=== PATIENT | female | born 1955 | race Caucasian/White ===

== ENCOUNTER → 2020-03-21 17:14 | Outpatient (CLI) | payer MEDICARE, OTHER, SELFPAY ==
--- NOTE | ~2020-03-21 | MM_ITS ---
EXAMINATION: MM screening chelle BI w srini HISTORY: Screening mammogram TECHNIQUE: Craniocaudal and mediolateral oblique 3-D tomosynthesis images were obtained and synthetic 2-D images were generated. CAD analysis was submitted and interpreted. COMPARISON: 12/24/2016 diagnostic left digital mammogram and limited left breast ultrasound 12/02/2016 bilateral digital screening mammogram 08/28/2014 bilateral diagnostic digital mammogram BREAST PARENCHYMAL COMPOSITION: There are scattered areas of fibroglandular density. FINDINGS: Numerous bilateral scattered benign calcifications. There is no evidence of suspicious mass , calcification, or architectural distortion to suggest malignancy in either breast. There has been n o suspicious interval change. IMPRESSION: 1. No mammographic evidence of malignancy. 2. Recommend routine screening mammography in one year. BI-RADS Category 2: Benign finding(s). Reviewed, dictated and finalized at location A.
== END ==
PROVIDERS: Visit Provider Obstetrics & Gynecology
DX: Z12.31 Encounter for screening mammogram for malignant neoplasm of breast (principal)
CPT/HCPCS: 77063; 77067

== ENCOUNTER → 2021-08-31 10:39 | Outpatient (CLI) | payer MEDICARE, OTHER, SELFPAY ==
--- NOTE | ~2021-08-31 | XR_ITS ---
XR chest 2V 08/31/2021 10:53 Indication: Asthma. Dyspnea. Procedure: 2 view chest Comparison: Comparison to multiple prior studies sequentially, with oldest reviewed study dated 11/2008. Findings: There is a new 1.5 cm nodule in the right upper lung, not seen on prior examinations. Heart size normal. No focal air space disease, pulmonary edema, pleural effusion or suspected pneumothorax . The lungs are hyperinflated which is consistent with, but not diagnostic of chronic obstructive pul monary disease. Impression: 1: New right upper lobe nodule measuring 1.5 cm, suspicious for malignancy. Follow-up CT chest recomm ended. Reviewed, dictated and finalized at location A. Impression: 1: New right upper lobe nodule measuring 1.5 cm, suspicious for malignancy. Fol low-up CT chest recommended.
== END ==
PROVIDERS: PCP Internal Medicine; Visit Provider Clinical Nurse Specialist
DX: J45.909 Unspecified asthma, uncomplicated (principal); R05.9 Cough, unspecified; R91.1 Solitary pulmonary nodule
CPT/HCPCS: 71046

== ENCOUNTER → 2021-09-04 11:11 | Outpatient (CLI) | payer MEDICARE, OTHER, SELFPAY ==
--- NOTE | ~2021-09-04 | CT_ITS ---
EXAMINATION: CT chest high resolution w con DATE: 09/04/2021 11:40 INDICATION: Solitary pulmonary nodule TECHNIQUE: Computed tomography (CT) of the chest was performed with 75 cc of Omnipaque 350 intravenou s contrast. The dose-length product (DLP) was 159.85 mGy-cm. Automated exposure control and iterative reconstruction technique were employed. COMPARISON: Chest radiograph dated 08/11/2021 FINDINGS: There is a 1.7 x 1.2 cm nodule of the right upper lobe. There is a 1.1 x 0.8 cm nodule of t he left lower lobe. A few clusters of nodules are present in the left lower lobe. There is no pleural effusion or pneumothorax. No pathologically enlarged thoracic lymph nodes are identified. The heart size is normal. There is mild thoracic spondylosis. IMPRESSION: 1. Right upper lobe nodule concerning for primary bronchogenic carcinoma. CT-guided biopsy is recomme nded. 2. Nodules and clusters of nodules of the left lower lobe have an appearance suggestive of infection/ inflammation. Follow-up CT in three months is recommended. Reviewed, dictated and finalized at location B. IMPRESSION: 1. Right upper lobe nodule concerning for primary bronchogenic carcinoma. CT-gu ided biopsy is recommended. 2. Nodules and clusters of nodules of the left lower lobe have an appearance corrales ggestive of infection/inflammation. Follow-up CT in three months is recommended .
[2021-09-04 11:29] LABS: Estimated Glomerular Filt Rate > 60
== END ==
PROVIDERS: Visit Provider Clinical Nurse Specialist
DX: R91.1 Solitary pulmonary nodule (principal); R91.8 Other nonspecific abnormal finding of lung field
CPT/HCPCS: 71260; Q9967

== ENCOUNTER 2021-09-10 02:06 | Outpatient (CLI) | payer MEDICARE, OTHER, SELFPAY ==
--- NOTE | 2021-09-07 15:42 | PC.NURSE ---
Pre Radiology instructions Report to the Outpatient Waiting Room, entrance under the green pavilion located off [facility], at time __09 on date __09/10/21 . Procedure Time: _1130 . One visitor will be allowed to accompany the patient into the hospital. The visitor will be instructed to remain with patient at all times or leave the building. We will allow the visitor to come back to the postoperative area when patient is ready. You and your visitor will be asked a series of questions to screen for COVID 19 for your protection. A mask is required within the hospital. Pre-procedure COVID Testing Requirements: No COVID Test needed if: (proof is required; if not received patient will have Rapid Test prior to entry)- Patient has received COVID Vaccine at least 14 days prior to procedure date or- Patient has positive COVID test result within last 90 days of procedure date. COVID Test needed if above criteria is not met If not COVID vaccinated a COVID test must be conducted within 72 hours of surgery and patient is asked to isolate self from time of testing until procedure. You will go to the [facility] for your COVID testing. The [facility] is located at the corner of [address] [facility]. You will only be called if COVID results are positive and your surgeon may reschedule your elective procedure date Patients are to have no food or drink 6 hours prior to procedure time Driving will be restricted after the procedure, you must have a person to drive you home. Labs will be drawn in preop area and once reviewed, you will be taken to radiology area for procedure. When the procedure is completed, you will be taken to outpatient where you will be monitored for several hours. You may have one visitor in this area. Other than holding anti-coagulants, patient may take other medication(s) as scheduled. Prior to your appointment date patients are instructed to hold anti-coagulants after discussing with ordering provider to stop. If unable to discontinue anti-coagulants please notify radiologist. No aspirin or warfarin (Coumadin) for 7 days prior to the procedure. No clopidogrel (Plavix), ticagrelor (Brilinta), prasugrel (Effient) or dabigatran (Pradaxa) for 5 days prior to the procedure. No rivaroxaban (Xarelto), apixaban (Eliquis), dipyridamole (Aggrenox or Persantine) or cilostazol (Pletal) for 2 days prior to the procedure. Medications to discontinue per physician: ____NONE Date to take last dose: Please leave all valuables, including medications, at home the day of procedure. The hospital will not accept responsibility for valuables. Wear comfortable, loose fitting clothing. Follow any additional instructions given to you from ordering provider. Telephone instructions given to __PATIENT and asked if any additional questions and then verbalized understanding. Patient advised to call scheduling provider office or registration scheduling [phone] if any additional questions.
[2021-09-07 15:45] VITALS: BMI 25.0
[2021-09-10] VITALS (13 sets, daily range): BP systolic 91–118; BP diastolic 44–77; PULSE 63–83; RESP 16–18; TEMP 36.6; O2SAT 94–100
--- NOTE | ~2021-09-10 | XR_ITS ---
EXAMINATION: XR chest 1V portable DATE: 09/10/2021 14:56 INDICATION: Status post percutaneous biopsy of a right upper lobe nodule TECHNIQUE: frontal view of the chest was obtained. COMPARISON: Chest radiograph dated 09/10/2021 at 12:40 PM FINDINGS: Mild right apical pleural-parenchymal scarring with near complete resolution of the tiny right apical pneumothorax. The biopsied nodule can be seen at the lateral right mid to upper lung zone. No new ai rspace opacities, pulmonary edema, pleural effusion or left pneumothorax. The cardiomediastinal silho uette is normal. IMPRESSION: 1. Near-complete resolution of the tiny right apical pneumothorax. 2. Right upper lobe nodule suspicious for malignancy. Reviewed, dictated and finalized at location A.
--- NOTE | ~2021-09-10 | XR_ITS ---
EXAMINATION: XR chest 1V DATE: 09/10/2021 11:41 INDICATION: Status post right lung biopsy TECHNIQUE: frontal view of the chest was obtained. COMPARISON: Chest radiograph dated 08/31/2021 FINDINGS: Tiny right apical pneumothorax with 5 mm maximal separation of the pleural margins. Mild right apical pleural-parenchymal scarring. Again seen is a right upper lobe nodule which is concerning for primar y bronchogenic carcinoma. No other airspace opacities, pulmonary edema, pleural effusion or left-side d pneumothorax. The cardiomediastinal silhouette is normal. IMPRESSION: 1. Tiny right apical pneumothorax post percutaneous biopsy of a right upper lobe nodule which is conc erning for primary bronchogenic carcinoma. Reviewed, dictated and finalized at location A. IMPRESSION: 1. Tiny right apical pneumothorax post percutaneous biopsy of a right upper lob e nodule which is concerning for primary bronchogenic carcinoma.
--- NOTE | ~2021-09-10 | CT_ITS ---
EXAMINATION: CT biopsy lung w/imaging DATE: 09/10/2021 11:40 INDICATION: Right upper lobe pulmonary nodule TECHNIQUE: The procedure including the risks and benefits was discussed with the patient. Risks discu ssed included infection, approximately 1/20 risk of symptomatic hemorrhage beyond mild hemoptysis, ap proximately 1/3 risk of pneumothorax, and approximately 1/10 risk of pneumothorax severe enough to wa rrant chest tube placement. The patient understood the risks and agreed to proceed. The patient was p laced in the left lateral decubitus position. The skin overlying the cephalad lateral right chest wa s prepped and draped in sterile fashion. Anesthetic was administered with 1% lidocaine subcutaneousl y. A 19 gauge outer needle was advanced under CT guidance to the lesion of interest. A 20 gauge core biopsy needle was then used to obtain 4 core biopsy specimens. The needle was removed and the entry site was cleaned and dressed. There were no immediate complications. The dose-length product was 165 .02 mGy-cm. FINDINGS: CT images demonstrate the outer needle tip adjacent to a 1.7 x 1.2 cm right upper lobe nodu le. IMPRESSION: 1. Successful CT-guided biopsy of a 1.7 cm right upper lobe nodule. Reviewed, dictated and finalized at location A.
--- NOTE | ~2021-09-10 | XR_ITS ---
EXAMINATION: XR chest 1V portable DATE: 09/10/2021 12:47 INDICATION: Status post right upper lobe biopsy TECHNIQUE: frontal view of the chest was obtained. COMPARISON: Chest radiograph dated 11:39 AM FINDINGS: Interval decrease in size of a tiny right apical pneumothorax. The biopsied right upper lobe nodules is seen at the lateral right mid to upper lung zone. No other opacities, pulmonary edema, pleural eff usion or left pneumothorax. The cardiomediastinal silhouette is normal. IMPRESSION: 1. Interval decrease in size of a tiny right apical pneumothorax. 2. Right upper lobe nodule concerning for malignancy. Reviewed, dictated and finalized at location A.
[2021-09-10 10:07] LABS: Mean Platelet Volume 9.6 fl (7.4-10.4); Platelet Count Result 354 k/mm3 (150-375)
[2021-09-10 10:18] LABS: INR 0.9; Prothrombin Time 12.1 Seconds (11.1-14.7)
--- NOTE | 2021-09-10 13:07 | SUR.PHASEII ---
at 1245 pt was c/o dinh and left chest pressure when taking a deep breath. pt BP is also down trending. This nurse called md Fowler to inform him about pt situation and he said pt can go by on her back and sit up a little, and drink some water and continue to monitor. pt was lying on her left side since she arrived to OP. md bardales said she can also have some tylenol if she wants.
[2021-09-10] MEDS: ACETAMINOPHEN 500 MG TABLET PO (13:32)
--- NOTE | 2021-09-10 13:40 | SUR.PHASEII ---
pt visitor came to bedside
--- NOTE | 2021-09-10 15:35 | SUR.PHASEII ---
at 1515 md palacios said pt was good to go home early since her last CXR looked good.
== END 2021-09-10 15:24 | disposition home or self-care (01) ==
PROVIDERS: PCP Internal Medicine; Visit Provider Radiology Diagnostic Radiology
PROC: BB24ZZZ Computerized Tomography (CT Scan) of Bilateral Lungs (ICD-10-PCS; CPT 32408; principal; 2021-09-10 11:30)
DX: R91.1 Solitary pulmonary nodule (principal); J84.10 Pulmonary fibrosis, unspecified
CPT/HCPCS: 32408; 36415; 71045; 85049; 85610; 88305; 88312; A9270

== ENCOUNTER → 2021-09-29 00:48 | Outpatient (CLI) | payer MEDICARE, OTHER, SELFPAY ==
[2021-09-29 12:36] LABS: Influenza A QL RT-PCR Negative (Negative); Influenza B QL RT-PCR Negative (Negative); SARS-CoV-2 RNA PCR Negative
== END ==
PROVIDERS: PCP Internal Medicine; Visit Provider Physician Assistant
DX: R05.9 Cough, unspecified (principal); Z20.822 Contact with and (suspected) exposure to COVID-19
CPT/HCPCS: 87502; C9803; U0003; U0005

== ENCOUNTER 2021-12-07 07:57 | Outpatient (CLI) | payer MEDICARE, OTHER, SELFPAY ==
--- NOTE | ~2021-12-07 | CT_ITS ---
EXAMINATION: CT diagnostic chest wo con DATE: 12/07/2021 08:12 INDICATION: Follow-up from CT biopsy. Solitary pulmonary nodule. Asthma. Congestion. TECHNIQUE: Computed tomography (CT) of the chest was performed without intravenous contrast. Automate d exposure control and iterative reconstruction technique were employed. Exam dose: 67.63 mGy-cm tot al exam DLP. COMPARISON: 09/10/2021 portable AP chest 3 hours post lung biopsy 09/10/2021 CT lung biopsy 09/04/2021 CDT chest high resolution scan FINDINGS: Right upper lobe nodule currently measures approximately 8.5 x 15.3 mm compared to 9.1 x 15 .4 mm on 09/04/2021. Bilateral mild apical scarring. There is chronic discoid scarring in the anteromedial right upper lobe and medial and anterolateral l eft upper lobe and particularly anteromedial lingula. There is considerable improvement and near resolution of patchy left lower lobe infiltrates since 08/12. Normal heart size. No hilar or mediastinal mass lesion or lymphadenopathy. No thoracic aortic aneurys m. No pericardial or pleural effusion. Normal morphology of the adrenal glands. Small sliding hiatal hernia. IMPRESSION: Persistent relatively stable right upper lobe lung mass; please refer to the lung biopsy result Improvement of left lower lobe infiltrates since 09/04/2021, consistent with suspected infection or in flammation Reviewed, dictated and finalized at Location A. Reviewed, dictated and finalized at location B. IMPRESSION: Persistent relatively stable right upper lobe lung mass; please re merline to the lung biopsy result Improvement of left lower lobe infiltrates since 09/04/2021, consistent with nicole pected infection or inflammation
== END 2021-12-07 07:58 | disposition home or self-care (01) ==
PROVIDERS: PCP Internal Medicine; Visit Provider Physician Assistant
DX: R91.1 Solitary pulmonary nodule (principal); R91.8 Other nonspecific abnormal finding of lung field
CPT/HCPCS: 71250

== ENCOUNTER 2022-02-10 00:16 | Day surgery (SDC) | payer MEDICARE, OTHER, SELFPAY ==
[2022-01-28 12:36] VITALS: BMI 25.4
--- NOTE | 2022-02-09 13:40 | WPDANESEPPF ---
Anes - Initial Pre Proc Eval Procedure: Operation Date: 02/10/22 08:45 Proposed Procedures p Screening Colonoscopy - Dago Bass MD Date/Time: 02/09/22 13:40 Surgeon: Dago Bass MD Pre Op Diagnosis: neoplasm screening Patient Data Age: 66 Gender: F Height: 1.52 m Weight: 59.1 kg Allergies Allergy/AdvReac Type Severity Reaction Status Date / Time meperidine Allergy Mild Nausea Verified 02/10/22 07:35 Home Medications Medication Instructions Recorded Confirmed Type cetirizine 10 mg tablet (Zyrtec) 10 mg PO DAILY #90 tabs 05/04/19 01/28/22 Rx cholecalciferol (vitamin D3) 25 1,000 unit PO DAILY 05/04/19 01/28/22 History mcg (1,000 unit) capsule inhalational spacing device #1 ea 11/13/19 01/28/22 Rx (Aerochamber MV spacer) tiotropium bromide 2.5 2 puff inhalation DAILY #4 grams 07/01/21 01/28/22 Rx mcg/actuation mist for inhalation (Spiriva Respimat) albuterol sulfate 90 mcg/actuation 1 inh inhalation Q4-6H PRN 07/22/21 01/28/22 Rx aerosol inhaler (ProAir HFA) shortness of breath or wheezing #8.5 grams fluticasone 232 mcg-salmeterol 14 1 inh inhalation BID #1 ea 07/22/21 01/28/22 Rx mcg/actuation breath activated powdr ipratropium 0.5 mg-albuterol 3 mg 3 ml inhalation BID PRN shortness 10/05/21 01/28/22 Rx (2.5 mg base)/3 mL nebulization of breath or wheezing #180 mL soln ascorbate calcium (vitamin C) 500 500 mg PO DAILY 12/11/21 01/28/22 History mg tablet zinc 50 mg tablet 50 mg PO DAILY 12/11/21 01/28/22 History albuterol sulfate 2.5 mg/3 mL 2.5 mg inhalation Q6H PRN Dyspnea 01/28/22 01/28/22 History (0.083 %) solution for nebulization Patient hx anesthesia problems: none Family hx anesthesia problems: none Results Review: All pre-operative results and documents have been reviewed as part of the pre-operative evaluation. [facility] Past Medical History Medical History (Updated 02/09/22 @ 13:40 by Jeramie Holguin MD) Asthma JUSTYNA (obstructive sleep apnea) Pulmonary nodule Surgical History Surgical History H/O: hysterectomy History of section Family History Family History Sibling Patient's sister is in good health Family history of lung cancer Father Cerebrovascular accident, Onset Age: 79 Family history of chronic obstructive pulmonary disease, Onset Age: 79 Mother Family history of pancreatic cancer, Onset Age: 74 Social History Social History Smoking packs per day: 1 Smoking cigarettes per day: 20.0 Years smoked: 20 Smoking pack-years: 20.00 Smoking status: Never smoker Smoking end date: 06/13/99 Alcohol intake: current Drinks per week: 5 Alcohol use details: occasional Substance use: never Substance use type: does not use Living arrangements: with family Spiritual care concerns: No Anes - Eval Final PreProcedure Day of Procedure 02/09/22 13:40 Patient weight: normal Heart: regular rate and rhythm Lungs: clear to auscultation and normal air movement Airway: Mallampati scale class II Neurological: alert and oriented Last oral intake: >/= 8 hours ASA classification: II Emergent: no Anesthetic plan: proceed Anesthesia type and monitoring: general GIVS Results Review: All pre-operative results and documents have been reviewed as part of the pre-operative evaluation. Informed Consent: The patient's anesthetic plan and its attendant risks and benefits were discussed with the patient/family/POA. Questions were solicited and answers provided to the satisfaction of the patient/family/POA.
[2022-02-10 07:36] VITALS: BP 104/61; PULSE 72; RESP 18; TEMP 36.6; BMI 24.5
[2022-02-10] MEDS: LACTATED RINGERS 1,000 ML 150 ML IV CONT (07:40)
--- NOTE | 2022-02-10 08:24 | PM.HPGS ---
History of Present Illness History of Present Illness Consent: Risks, benefits, and alternatives have been discussed and questions answered. Patient agrees to proceed with procedure. Chief complaint: neoplasm screening Narrative: Awa Stringer is a 66 year old female here for screening colonoscopy, last one 10 years ago Review of Systems Constitutional: Constitutional: Denies headache(s) and Denies weakness Eyes: Eyes: Denies blurry vision ENT: Reports Normal hearing present, Denies headache(s) and Denies neck pain Cardiovascular: Cardiovascular: Denies chest pain and Denies dyspnea Respiratory: Respiratory: Denies dyspnea Gastrointestinal: Gastrointestinal: Reports no additional gastrointestinal complaints Genitourinary: Genitourinary: Denies dysuria Musculoskeletal: Musculoskeletal: Denies neck pain Integumentary/Breasts: Skin/Breast: Denies dry skin Neurologic: Reports Normal hearing present, Denies headache(s) and Denies weakness Psychiatric: Psychiatric: Denies anxiety Endocrine: Endocrine: Denies change in body appearance Hematologic/Lymphatic: Hematologic/Lymphatic: Denies easy bleeding Allergic/Immunologic: Allergic/Immunologic: Denies urticaria PMFSH Past Medical History Medical History (Updated 02/09/22 @ 13:40 by Jeramie Holguin MD) Asthma JUSTYNA (obstructive sleep apnea) Pulmonary nodule Surgical History Surgical History H/O: hysterectomy History of section Family History Family History Sibling Patient's sister is in good health Family history of lung cancer Father Cerebrovascular accident, Onset Age: 79 Family history of chronic obstructive pulmonary disease, Onset Age: 79 Mother Family history of pancreatic cancer, Onset Age: 74 Social History Social History Smoking packs per day: 1 Smoking cigarettes per day: 20.0 Years smoked: 20 Smoking pack-years: 20.00 Smoking status: Never smoker Smoking end date: 06/13/99 Alcohol intake: current Drinks per week: 5 Alcohol use details: occasional Substance use: never Substance use type: does not use Living arrangements: with family Spiritual care concerns: No Meds Home Medications and Allergies Home Medications Medication Instructions Recorded Confirmed Type cetirizine 10 mg tablet (Zyrtec) 10 mg PO DAILY #90 tabs 11/22/19 08/18/22 Rx cholecalciferol (vitamin D3) 25 1,000 unit PO DAILY 05/04/19 01/28/22 History mcg (1,000 unit) capsule inhalational spacing device #1 ea 11/13/19 01/28/22 Rx (Aerochamber MV spacer) tiotropium bromide 2.5 2 puff inhalation DAILY #4 grams 07/01/21 01/28/22 Rx mcg/actuation mist for inhalation (Spiriva Respimat) albuterol sulfate 90 mcg/actuation 1 inh inhalation Q4-6H PRN 07/22/21 01/28/22 Rx aerosol inhaler (ProAir HFA) shortness of breath or wheezing #8.5 grams fluticasone 232 mcg-salmeterol 14 1 inh inhalation BID #1 ea 07/22/21 01/28/22 Rx mcg/actuation breath activated powdr ipratropium 0.5 mg-albuterol 3 mg 3 ml inhalation BID PRN shortness 10/05/21 01/28/22 Rx (2.5 mg base)/3 mL nebulization of breath or wheezing #180 mL soln ascorbate calcium (vitamin C) 500 500 mg PO DAILY 12/11/21 01/28/22 History mg tablet zinc 50 mg tablet 50 mg PO DAILY 12/11/21 01/28/22 History albuterol sulfate 2.5 mg/3 mL 2.5 mg inhalation Q6H PRN Dyspnea 01/28/22 01/28/22 History (0.083 %) solution for nebulization Allergies Allergy/AdvReac Type Severity Reaction Status Date / Time meperidine Allergy Mild Nausea Verified 02/10/22 07:35 Vital Signs Vital Signs - 24 hr 02/10/22 07:36 Temperature 97.8 F Pulse Rate 72 Respiratory Rate 18 Blood Pressure 104/61 Exam Const: General: comfortable and no acute distress HE
[2022-02-10 08:50] VITALS: BP 97/61; PULSE 77; RESP 16; O2SAT 98
[2022-02-10 09:00] VITALS: BP 105/61; PULSE 67; RESP 14; O2SAT 98
[2022-02-10 09:10] VITALS: BP 109/64; PULSE 67; RESP 14; O2SAT 100
== END 2022-02-10 09:22 | disposition home or self-care (01) ==
PROVIDERS: PCP Internal Medicine; Visit Provider Internal Medicine Gastroenterology
PROC: 0DJD8ZZ Inspection of Lower Intestinal Tract, Via Natural or Artificial Opening Endoscopic (ICD-10-PCS; CPT 45378; principal; 2022-02-10 08:45)
DX: Z12.11 Encounter for screening for malignant neoplasm of colon (principal); D12.4 Benign neoplasm of descending colon; K57.30 Diverticulosis of large intestine without perforation or abscess without bleeding; K64.8 Other hemorrhoids; J45.909 Unspecified asthma, uncomplicated; G47.33 Obstructive sleep apnea (adult) (pediatric); R91.1 Solitary pulmonary nodule; Z79.51 Long term (current) use of inhaled steroids
CPT/HCPCS: 45380; 88305; J2704; J7120

== ENCOUNTER → 2022-03-25 14:34 | Outpatient (CLI) | payer MEDICARE, OTHER, SELFPAY ==
--- NOTE | ~2022-03-25 | MM_ITS ---
EXAMINATION: MM screening chelle BI w srini HISTORY: Screening TECHNIQUE: Craniocaudal and mediolateral oblique 3-D tomosynthesis images were obtained and synthetic 2-D images were generated. CAD analysis was submitted and interpreted. COMPARISON: No prior mammogram is available for comparison at this institution. BREAST PARENCHYMAL COMPOSITION: Breast composed of scattered areas of fibroglandular density FINDINGS: There is no evidence of suspicious mass, calcification, or architectural distortion to sugg est malignancy in either breast. There has been no suspicious interval change. IMPRESSION: 1. No mammographic evidence of malignancy. 2. Recommend routine screening mammography in one year. BI-RADS Category 1: Negative Reviewed, dictated and finalized at location A.
== END ==
PROVIDERS: PCP Internal Medicine; Visit Provider Nurse Practitioner
DX: Z12.31 Encounter for screening mammogram for malignant neoplasm of breast (principal)
CPT/HCPCS: 77063; 77067

== ENCOUNTER → 2022-03-30 12:33 | Outpatient (CLI) | payer MEDICARE, OTHER, SELFPAY ==
--- NOTE | ~2022-03-30 | DEXA_ITS ---
Bone Density Report Name: NILA MACIAS Age: 66 Sex: Female Ethnicity: White Date of : 1955 Indication: postmenopausal; screening for osteoporosis; asthma or emphysema; hysterectomy; Referring Provider: Lashaun Rey Study: Bone densitometry was performed. Exam Date: March 30, 2022 Accession number: [id number] Bone Density: Region BMD T-score Z-score Classification AP Spine (L1-L4) 0.983 -0.6 1.3 Normal Femoral Neck (Left) 0.602 -2.2 -0.6 Osteopenia Total Hip (Left) 0.748 -1.6 -0.2 Osteopenia Femoral Neck (Right) 0.621 -2.1 -0.4 Osteopenia Total Hip (Right) 0.781 -1.3 0.0 Osteopenia Total Hip Mean 0.765 -1.5 -0.1 Osteopenia World Health Organization criteria for BMD impression classify patients as: Normal (T-score at or above -1.0), Osteopenia (T-score between -1.0 and -2.5), or Osteoporosis (T-score at or below -2.5). 10-year Fracture Risk(1): Major Osteoporotic Fracture 12% Hip Fracture 2.2% Reported Risk Factors: [place] (), Neck BMD=0.602, BMI=24.3 (1) FRAX(R) Version 3.08. Fracture probability calculated for an untreated patient. Fracture probability may be lower if the patient has received treatment. Clinical Information Provided by Patient: Has used the following medications: Vitamin D Has the following medical conditions: Asthma or Emphysema, Hysterectomy Patient maximum height was 60 Menopause Age: 44 No regular weight bearing exercise Does not regularly consume dairy products Drinks caffeinated beverages Onset of menses at age 12 Number of children 2 Impression: The patient has low bone mass, based on the Left Femoral Neck T-score. The patient has an estimated ten-year risk of hip fracture of 2.2% and an estimated ten-year risk of major fracture of 12%, based on the WHO FRAX algorithm. Discussion: BONE DENSITY IS LOW AT ONE OR MORE SKELETAL SITES. This patient's lowest T-score is low at one or more skeletal sites. It meets the World Health Organization's (WHO) criteria for ?low bone mass? (T-score between -1.0 and -2.5). The patient's 10-year risk of fracture as calculated by FRAX is less than the threshold where pharmacological therapy is recommended by the National Osteoporosis Foundation (NOF). However, all treatment decisions require clinical judgment and consideration of individual patient factors, including patient preferences, comorbidities, previous drug use, risk factors not captured in the FRAX model (e.g., frailty, falls, vitamin D deficiency, increased bone turnover, interval significant decline in bone density) and possible under or overestimation of fracture risk by FRAX. The patient should follow a healthful lifestyle (good nutrition with adequate calcium and vitamin D, and appropriate weight-bearing exercise). Follow-Up: Consider repeating th
== END ==
PROVIDERS: PCP Internal Medicine; Visit Provider Nurse Practitioner
DX: Z78.0 Asymptomatic menopausal state (principal); M85.89 Other specified disorders of bone density and structure, multiple sites
CPT/HCPCS: 77080

== ENCOUNTER 2023-06-20 09:18 | Inpatient (IN) | payer MEDICARE, OTHER, SELFPAY ==
[2023-06-20] VITALS (14 sets, daily range): BP systolic 95–149; BP diastolic 56–84; PULSE 80–112; RESP 12–20; TEMP 36.2–36.4; O2SAT 84–100; BMI 22.8
--- NOTE | ~2023-06-20 | XR_ITS ---
XR chest 1V portable DATE: 06/20/2023 10:44 INDICATION: Shortness of breath, productive cough. History of asthma. TECHNIQUE: Portable upright AP chest on 06/20/2023 at 1037 hours COMPARISON: 12/07/2021 CT chest 09/10/2021 portable AP chest FINDINGS: The lungs are hyperinflated suggesting obstructive airways disease. Asymmetric subtle density overlying the lateral right upper lung field corresponds to the position of the previously reported right upper lobe lung mass; recommend correlation with previous biopsy resul t and follow-up CT chest imaging if/as clinically appropriate. No pulmonary infiltrate or consolidation, pleural effusion or pulmonary vascular congestion or pneumo thorax is detected. Normal heart size. No hilar or mediastinal enlargement. IMPRESSION: Bilateral hyperinflation suggesting obstructive airways disease Probable right upper lung mass; recommend clinical correlation with previous biopsy Reviewed, dictated and finalized at location B. ER CENTER DIRECTOR IMPRESSION: Bilateral hyperinflation suggesting obstructive airways disease Probable right upper lung mass; recommend clinical correlation with previous bi opsy
--- NOTE | 2023-06-20 09:48 | ECG_ITS ---
Measurements Intervals [place] Rate: 96 P: 78 [place]: 120 QRS: 57 QRSD: 81 T: 64 QT: 335 QTc: 424 Interpretive Statements SINUS RHYTHM BASELINE ARTIFACT- I, II, III, AVR, AVL, AVF, V1-V2, V4-V6 NORMAL ECG NO PREVIOUS ECG AVAILABLE FOR COMPARISON Electronically Signed On 06-20-2023 10:30:52 [employer] by Gualberto Taylor D.O.
[2023-06-20] MEDS: ALBUTEROL SULFATE NEB 2.5 MG/3 ML INH 10 MG INHALATION ×2 (09:55→12:10)
[2023-06-20] MEDS: IPRATROPIUM BR 0.02% INH SOLN 0.5 MG/2.5 ML VIAL INHALATION ×2 (09:55→20:40)
--- NOTE | 2023-06-20 10:08 | ED.SOB ---
HPI - SOB/Dyspnea General Chief Complaint: Shortness of Breath/Dyspnea Stated Complaint: difficulty breathing, low o2 Time Seen by Provider: 06/20/23 09:50 History of Present Illness HPI Narrative: Patient is a 67-year-old female who presents ER with shortness of breath. Has history of asthma. Began having dyspnea about 4 days ago. No fevers or chills or sweats. No LOC. Unknown sick contacts. Mild cough. She is having chest tightness. She has been compliant with home medications. Related Data Home Medications Medication Instructions Recorded Confirmed cholecalciferol (vitamin D3) 25 1,000 unit PO DAILY 05/04/19 06/20/23 mcg (1,000 unit) capsule zinc 50 mg tablet 50 mg PO DAILY 12/11/21 06/20/23 Allergies Allergy/AdvReac Type Severity Reaction Status Date / Time meperidine Allergy Mild Nausea Verified 01/27/23 10:13 Review of Systems Review of Systems: All systems reviewed & are unremarkable except as noted in HPI and below Constitutional: Constitutional: Denies chills, Reports fatigue and Denies fever(s) ENT: Denies nasal congestion and Denies sore throat Cardiovascular: Cardiovascular: Reports no additional cardiovascular complaints Respiratory: Respiratory: Reports cough, Reports dyspnea and Reports wheezing Gastrointestinal: Gastrointestinal: Reports no additional gastrointestinal complaints Musculoskeletal: Musculoskeletal: Reports no additional musculoskeletal complaints [facility] Past Medical History Medical History Asthma Obstructive sleep apnea Pulmonary nodule Biopsied in August 2021-benign. Surgical History Surgical History History of appendectomy History of section History of hysterectomy History of lung biopsy History of tubal ligation Family History Family History Sibling Family history of lung cancer Patient's sister is in good health 2 sisters recently diagnosed with hyper hemochromatosis Father Cerebrovascular accident, Onset Age: 79 Family history of chronic obstructive pulmonary disease, Onset Age: 79 Mother Family history of pancreatic cancer, Onset Age: 74 Social History Social History (Updated 06/20/23 @ 15:50 by Vesna Connelly PA-C) Social History: Surrogate medical decision maker: Colton Bettorf, spouse. Code status: Full code. Smoking packs per day: 1 Smoking cigarettes per day: 20.0 Years smoked: 20 Smoking pack-years: 20.00 Smoking status: Former smoker Alcohol intake: current Drinks per week: 5 Substance use: never Substance use type: does not use Do You Feel Safe in your Home?: Yes Lack of Transportation: No Lack of Food: Never True Current Housing: I Have Housing Concerned About Future Housing: No Difficulty Paying Gas/Electric Bills: No Difficulty Paying for Meds: No Currently Unemployed: No Education: High School Diploma/GED Difficulty w/ Childcare or Family Care: No Living arrangements: with family Additional living arrangements comments: Lives with spouse in [place]. Spiritual care concerns: No Exam Narrative: GENERAL: Chronically ill-appearing, well-nourished, and in no acute distress. HEAD: Normocephalic, atraumatic. ENT: Mucous membranes moist. NECK: Supple. CHEST: diffuse inspiratory and expiratory wheezing with increased respiratory rate. HEART: Regular rate and rhythm. Normal peripheral pulses. EXTREMITIES: Normal range of motion. No edema. SKIN: Warm, dry, no rash. NEURO: Alert and oriented x3. PSYCH: Normal mood and affect. Course Course Emergency Course: Patient with persistent wheezing. When attempt dating to ambulate patient medially desaturates to 84% on room air. Admit to hospitalist service for IV steroids and regular breathing treatments.
[2023-06-20 10:25] LABS: Basophils Percent Auto 0.2 % (0.2-1.2); Eosinophils Percent Auto 0.1 % (0-4.4); Hematocrit 43.7 % (37.0-47.0); Hemoglobin 13.9 g/dL (12.0-15.0); Immature Granulocyte Absolute 0.08 K/mm3 (0.00-0.031); Immature Granulocyte Percent A 0.4 % (0-0.5); Lymphocytes Percent Auto 9.6 % (18.3-44.2); Mean Corpuscular HGB Conc 31.8 g/dl (32-36); Mean Corpuscular Hemoglobin 30.6 pg (26-34); Mean Corpuscular Volume 96.3 fl (80-100); Monocytes Absolute Auto 1.9 K/mm3 (0.1-0.6); Monocytes Percent Auto 10.3 % (2.6-8.5); Neutrophils Absolute Auto 14.9 K/mm3 (1.3-6.7); Neutrophils Percent Auto 79.4 % (45.5-73.1); Platelet Count Result 323 k/mm3 (150-375); Red Blood Count 4.54 M/mm3 (4.2-5.4); Red Cell Distribution Width 12.4 % (11.5-14.5); White Blood Count 18.8 K/mm3 (4.5-10.0)
[2023-06-20 10:35] LABS: Alanine Aminotransferase 21 U/L (6-35); Alkaline Phosphatase 78 U/L (38-126); Anion Gap 8 mmol/L (8-16); Aspartate Amino Transferase 20 U/L (14-36); Bilirubin,Total 0.5 mg/dL (0.2-1.3); Blood Urea Nitrogen 12 mg/dL (7-17); Calcium 8.9 mg/dL (8.4-10.2); Carbon Dioxide 25 mmol/L (22-30); Chloride 104 mmol/L (98-107); Estimated CRCL calculation 58 ml/min; Estimated Glomerular Filt Rate > 60; Glucose 92 mg/dL (65-110); Potassium 3.5 mmol/L (3.4-5.0); Sodium 137 mmol/L (137-145)
[2023-06-20 11:02] LABS: Influenza A QL RT-PCR Negative (Negative); Influenza B QL RT-PCR Negative (Negative); RSV RNA, RT-PCR Negative (Negative); SARS-CoV-2 RNA PCR Negative (Negative)
[2023-06-20] MEDS: IPRATROPIUM BR 0.02% INH SOLN 0.5 MG/2.5 ML VIAL 1 MG INHALATION (12:10)
[2023-06-20] MEDS: methylPREDNISolone SOD SUCC 125 MG VIAL IV PUSH (13:04)
--- NOTE | 2023-06-20 15:20 | ADMGEN ---
This patient, Awa Stringer, was admitted to Virtual Bed 3rd Floor-3. Patient/family oriented to hospital policies and general routines including ID bracelet, bed and alarms, visiting hours, pain management, procedures, bathroom and other care routines, personal items, smoking policy, room service/diet, and visiting hours. Information on how to activate the Rapid Response Team has been discussed. Patient/Family are encouraged to report perceived risks to care and to ask questions if they do not understand what they are told or what they should do.
--- NOTE | 2023-06-20 15:45 | PM.IMHP ---
H&P: HPI History of Present Illness Date/Time: 06/20/23 16:45 Chief Complaint: Shortness of breath. Narrative: This is a very pleasant 67-year-old female with asthma who presented to the emergency department via private vehicle from home for evaluation of shortness of breath. The patient provides the following history. She has not felt well for about 3 or 4 days with cough productive of thick greenish yellow phlegm and increasing dyspnea on lesser and lesser exertion. She also endorses tightness in her chest with reports that it feels as though she cannot take in a deep breath. She has been using her maintenance inhaler at home (she is on fluticasone, no longer on Spiriva as she cannot afford it) and nebulizers 4 times a day which have not helped much. She had some leftover prednisone at home and she took 40 mg each day for the last 3 days for her wheezing though that is not helped either. She denies fever, chills, sweats, sinus congestion, sore throat, pleuritic pain, nausea, and vomiting. She also denies sick contacts and recent travel. She was afebrile on arrival to the emergency department. SpO2 has been as low and 84% on room air and she is currently on 2 L. Her labs were pretty unremarkable aside from a WBC count of 18.8. She tested negative for influenza, RSV, and COVID. 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 She received 125 mg IV Solu-Medrol and a DuoNeb in the ED and she is being admitted in this setting for further treatment. Review of Systems Review of Systems: Twelve systems were reviewed. No syncope or near syncope. She denies exertional chest pain but has had some shortness of breath as detailed above. No orthopnea or paroxysmal nocturnal dyspnea. She has been noticing edema in her ankles recently which is new for her. She has a strong family history of cardiac disease including 2 of her sisters and she is worried about that. Except as documented, all other systems were reviewed and are negative pleural PMFSH Past Medical History Medical History (Updated 06/20/23 @ 21:33 by Vesna Connelly PA-C) Asthma Pulmonary nodule Biopsied in August 2021-benign. Surgical History Surgical History History of appendectomy History of section History of hysterectomy History of lung biopsy History of tubal ligation Family History Family History Sibling Family history of lung cancer Patient's sister is in good health 2 sisters recently diagnosed with hyper hemochromatosis Father Cerebrovascular accident, Onset Age: 79 Family history of chronic obstructive pulmonary disease, Onset Age: 79 Mother Family history of pancreatic cancer, Onset Age: 74 Social History Social History (Updated 06/20/23 @ 15:50 by Vesna Connelly PA-C) Social History: Surrogate medical decision maker: Colton Stringer, spouse. Code status: Full code. Smoking packs per day: 1 Smoking cigarettes per day: 20.0 Years smoked: 20 Smoking pack-years: 20.00 Smoking status: Former smoker Alcohol intake: current Drinks per week: 5 Substance use: never Substance use type: does not use Do You Feel Safe in your Home?: Yes Lack of Transportation: No Lack of Food: Never True Current Housing: I Have Housing Concerned About Future Housing: No Difficulty Paying Gas/Electric Bills: No Difficulty Paying for Meds: No Currently Unemployed: No Education: High School Diploma/GED Difficulty w/ Childcare or Family Care: No Living arrangements: with family Additional living arrangements comments: Lives with spouse in [place]. Spiritual care concerns: No Meds Home Medications and Allergies Home Medica
[2023-06-20] MEDS: AZITHROMYCIN 500 MG/NS 250 ML 500 MG/250 ML BAG 250 MG IVPB (16:49)
[2023-06-20] MEDS: methylPREDNISolone SOD SUCC 125 MG VIAL 60 MG IV PUSH ×2 (17:28→23:35)
[2023-06-20] MEDS: guaiFENesin 12 HR 600 MG TABCR PO (20:25)
[2023-06-20] MEDS: ALBUTEROL SULFATE NEB 2.5 MG/3 ML INH INHALATION (20:40)
[2023-06-20] MEDS: MAGNESIUM SULF 2 GM/WATER 50ML 2 GM/50 ML BAG IVPB (23:35)
[2023-06-21] VITALS (14 sets, daily range): BP systolic 106–112; BP diastolic 58–64; PULSE 75–97; RESP 16–18; TEMP 35.7–36.8; O2SAT 94–98
[2023-06-21] MEDS: ALBUTEROL SULFATE NEB 2.5 MG/3 ML INH INHALATION ×4 (01:36→21:09)
[2023-06-21] MEDS: IPRATROPIUM BR 0.02% INH SOLN 0.5 MG/2.5 ML VIAL INHALATION ×4 (01:36→21:09)
[2023-06-21] MEDS: methylPREDNISolone SOD SUCC 125 MG VIAL 60 MG IV PUSH ×2 (05:23→16:46)
[2023-06-21 06:51] LABS: Hematocrit 41.6 % (37.0-47.0); Mean Corpuscular HGB Conc 31.3 g/dl (32-36); Mean Corpuscular Hemoglobin 30.3 pg (26-34); Platelet Count Result 297 k/mm3 (150-375); Red Blood Count 4.29 M/mm3 (4.2-5.4); Red Cell Distribution Width 12.4 % (11.5-14.5); White Blood Count 16.9 K/mm3 (4.5-10.0)
[2023-06-21 07:07] LABS: Anion Gap 5 mmol/L (8-16); Blood Urea Nitrogen 14 mg/dL (7-17); Calcium 8.6 mg/dL (8.4-10.2); Carbon Dioxide 29 mmol/L (22-30); Chloride 103 mmol/L (98-107); Estimated CRCL calculation 55 ml/min; Estimated Glomerular Filt Rate > 60; Glucose 136 mg/dL (65-110); Magnesium 2.7 mg/dL (1.6-2.3); Sodium 137 mmol/L (137-145)
[2023-06-21 07:15] LABS: CRP 13.9 mg/dL (<1.0)
[2023-06-21 07:30] LABS: Procalcitonin 0.1 ng/mL
[2023-06-21] MEDS: CHOLECALCIFEROL 1,000 UNITS TABLET 1000 UNITS PO (08:58)
[2023-06-21] MEDS: guaiFENesin 12 HR 600 MG TABCR PO ×2 (08:58→20:38)
[2023-06-21] MEDS: LORATADINE 10 MG TABLET PO (08:58)
[2023-06-21] MEDS: ENOXAPARIN 40 MG/0.4 ML SYRINGE SUB-Q (08:58)
[2023-06-21] MEDS: ASCORBIC ACID 500 MG TABLET PO (08:59)
--- NOTE | 2023-06-21 09:36 | P.PNIM_ITS ---
Progress Note: A&P Assessment and Plan (1) Acute respiratory failure with hypoxia: Code(s): J96.01 - Acute respiratory failure with hypoxia Status: Acute Assessment and Plan: * Presented to the emergency department for evaluation of increasing shortness of breath and cough the last several days * SPO2 at arrival was 84% on room air * Supplemental oxygen, wean to maintain saturations >92% * Most likely related to asthma exacerbation * IV solumedrol continued 40mg IV Q6H, titrate to 40mg IV Q12H with resolution of wheezes * Pulm consulted, thank you for your help (Sees Dr. Caraballo outpatient) * Chest xray indicated Hyperinflation suggesting obstructive airway disease * Trend Respiratory status * CPR 13.9, Procal 0.1 (2) Asthma exacerbation: Qualifiers: Asthma persistence: persistent Asthma severity: moderate Qualified Code(s): J45.41 - Moderate persistent asthma with (acute) exacerbation Code(s): J45.901 - Unspecified asthma with (acute) exacerbation Status: Acute Assessment and Plan: * See above * Will need inhaler that is affordable * Await further recommendations from pulmonary (3) Leukocytosis: Qualifiers: Leukocytosis type: unspecified Qualified Code(s): D72.829 - Elevated white blood cell count, unspecified Code(s): D72.829 - Elevated white blood cell count, unspecified Status: Acute Assessment and Plan: * WBC elevated at 18.8 at admission * Currently 16.9 * Most likely related to steroid use * Continue to trend WBC * Antibiotics continued at this time (4) Thrush: Code(s): B37.0 - Candidal stomatitis Status: Acute Assessment and Plan: * Noted white patches on tongue and mouth * Most likely from the neb treatments * Start nystatin Time Spent With Patient Time: 48 minutes Time with patient: Greater than 35 minutes Subjective Date/time seen: 06/21/23 09:36 Interval history: Patient is 67-year-old female with past medical history of asthma who presented to the ED with complaints of shortness of breath for the last 3 or 4 days. Her is present which she was okay talking around. She is currently still in the 2 L nasal cannula. She did state that she was feeling ill or however was still having some struggles. 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 She did state that she has some chest pain however stated that it was mostly related to cough. She did state that her cough. Is better. She denies any nausea, vomiting, diarrhea or constipation. She is concerned about her deductible. Spoke to her about finding a medication that would be compatible with her insurance. Review of Systems Review of Systems: All systems reviewed & are unremarkable except as noted in HPI and below Exam Narrative: General: well-nourished, tired-appearing 67-year-old female, laying in bed, comfortable, NARD Neuro: awake, alert and oriented x4, speech clear, no focal neuro deficits noted HEENMT: normocephalic, atraumatic, EOMI, sclerae anicteric, moist oral mucosa Respiratory: diminished to auscultation bilaterally lower lobes without crackles, rhonchi or wheezes, nonlabored breathing Cardio: regular rate, regular rhythm with S1-S2 Abdomen: nondistended, normoactive bowel sounds, soft, nontender to palpation Extremities: no edema, erythema, or tenderness to palpation, DP pulses 2+ bilaterally Skin: Scab over woun
--- NOTE | 2023-06-21 09:36 | PM.IMPN ---
Progress Note: A&P Assessment and Plan (1) Acute respiratory failure with hypoxia: Code(s): J96.01 - Acute respiratory failure with hypoxia Status: Acute Assessment and Plan: Presented to the emergency department for evaluation of increasing shortness of breath and cough the last several days SPO2 at arrival was 84% on room air Supplemental oxygen, wean to maintain saturations >92% Most likely related to asthma exacerbation IV solumedrol continued 40mg IV Q6H, titrate to 40mg IV Q12H with resolution of wheezes Pulm consulted, thank you for your help (Sees Dr. Caraballo outpatient) Chest xray indicated Hyperinflation suggesting obstructive airway disease Trend Respiratory status CPR 13.9, Procal 0.1 (2) Asthma exacerbation: Qualifiers: Asthma persistence: persistent Asthma severity: moderate Qualified Code(s): J45.41 - Moderate persistent asthma with (acute) exacerbation Code(s): J45.901 - Unspecified asthma with (acute) exacerbation Status: Acute Assessment and Plan: See above Will need inhaler that is affordable Await further recommendations from pulmonary (3) Leukocytosis: Qualifiers: Leukocytosis type: unspecified Qualified Code(s): D72.829 - Elevated white blood cell count, unspecified Code(s): D72.829 - Elevated white blood cell count, unspecified Status: Acute Assessment and Plan: WBC elevated at 18.8 at admission Currently 16.9 Most likely related to steroid use Continue to trend WBC Antibiotics continued at this time (4) Thrush: Code(s): B37.0 - Candidal stomatitis Status: Acute Assessment and Plan: Noted white patches on tongue and mouth Most likely from the neb treatments Start nystatin Time Spent With Patient Time: 48 minutes Time with patient: Greater than 35 minutes Subjective Date/time seen: 06/21/23 09:36 Interval history: Patient is 67-year-old female with past medical history of asthma who presented to the ED with complaints of shortness of breath for the last 3 or 4 days. Her is present which she was okay talking around. She is currently still in the 2 L nasal cannula. She did state that she was feeling ill or however was still having some struggles. 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 She did state that she has some chest pain however stated that it was mostly related to cough. She did state that her cough. Is better. She denies any nausea, vomiting, diarrhea or constipation. She is concerned about her deductible. Spoke to her about finding a medication that would be compatible with her insurance. Review of Systems Review of Systems: All systems reviewed & are unremarkable except as noted in HPI and below Exam Narrative: General: well-nourished, tired-appearing 67-year-old female, laying in bed, comfortable, NARD Neuro: awake, alert and oriented x4, speech clear, no focal neuro deficits noted HEENMT: normocephalic, atraumatic, EOMI, sclerae anicteric, moist oral mucosa Respiratory: diminished to auscultation bilaterally lower lobes without crackles, rhonchi or wheezes, nonlabored breathing Cardio: regular rate, regular rhythm with S1-S2 Abdomen: nondistended, normoactive bowel sounds, soft, nontender to palpation Extremities: no edema, erythema, or tenderness to palpation, DP pulses 2+ bilaterally Skin: Scab over wound noted to the outer white on the left leg Psych: appropriate mood and affect, judgment and insight intact Objective Data Vital Signs Vital Signs: Vital Signs - 24 hr 06/20/23 09:41 06/20/23 09:55 06/20/23 10:17 Temperature 97.5 F L Pulse Rate 108 H 101 H 94 Respiratory Rate 20 18 20 Blood Pressure 149/81 H Pulse Oximetry 91 100 Oxygen Delivery Room Air Oxygen Flow Rate Fraction of Inspired Oxygen 06/20/23 10:52 06/20/23 12:10 06/20/23 13:14 Temperatu
--- NOTE | 2023-06-21 11:55 | PM.CNPUL ---
Assessment and Plan Assessment and plan (1) Acute respiratory failure with hypoxia: Code(s): J96.01 - Acute respiratory failure with hypoxia Status: Acute (2) Asthma exacerbation: Qualifiers: Asthma severity: moderate Asthma persistence: persistent Qualified Code(s): J45.41 - Moderate persistent asthma with (acute) exacerbation Code(s): J45.901 - Unspecified asthma with (acute) exacerbation Status: Acute Assessment and Plan: 67-year-old female with long history of mild intermittent asthma presented with cough wheezing shortness of breath. Physical exam in conjunction with the diagnostic studies suggest asthma exacerbation. The patient has been on appropriate regimen with IV steroids antibiotics for possible lower respiratory tract infection short-acting bronchodilators. Her respiratory status seems to be improving slowly. The case has been discussed with the patient's hospitalist. Plan; continue with current regimen of IV steroids nebulized short-acting bronchodilators antibiotics, DVT prophylaxis. You may repeat viral test to exclude recent viral infection. (3) Lung nodule seen on imaging study: Code(s): R91.1 - Solitary pulmonary nodule Status: Acute History of Present Illness History of Present Illness Consult date: 06/21/23 Chief complaint: COPD Exacerbation/Hypoxia Narrative: This 67-year-old female presented with a one-week history of cough progressively increasing shortness of breath and wheezing. The patient has a history of asthma for many years. Her asthma has been mostly mild and intermittent for which she has been using maintenance medications. The patient stated that she uses the medications on a p.r.n. basis. She was in her usual state of health until approximately 1 week ago when she started to have a cough which was initially dry and then productive of yellow and green phlegm. She has been short of breath for 1 week and also complaining of wheezing. She had no fever chills hemoptysis chest pain palpitations. The patient has been diagnosed with asthma exacerbation has been placed on IV steroids and nebulized short-acting bronchodilators. Currently she feels little better. Upon questioning she admitted having received treatment with oral steroid burst at least 3 times over the last 2 years for asthma control. Her maintenance regimen also includes Spiriva 2.5 inhaler in addition to Advair and albuterol rescue inhaler. The patient stated that she stopped using Spiriva which may have accounted for current asthma flare up. Past medical history is also significant for right upper lobe nodule for which she underwent CT-guided needle biopsy. 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 Stains for AFBs and fungal elements were negative. Patient used to smoke half a pack for approximately 2 years she quit more 10 years ago. She has history of exposure to 2nd hand smoke as she used to work at a [employer]. Patient has been tested negative for all 3 viruses. Chest x-ray showed old lung nodule in the right upper lobe, no new infiltrates. Review of Systems Review of Systems: Patient reports some 20 lb weight loss over the last several months related to dental issues. She reports excellent appetite. She has no orthopnea. She has no history of nasal allergies. She has no nausea vomiting diarrhea constipation. She has some urinary incontinence. She has no skin rashes. The remainder of the 12 point system review is negative. [facility] Past Medical History Medical History (Updated 06/21/23 @ 09:45 by YAN Troncoso) Asthma Pulmonary nodule Biopsied in August 2021-benign. Surgical History Surgical History History of appendectomy History of section History of hysterectomy History of lung biopsy History of tubal ligation Family History Family History (Reviewed 06/20/23 @ 15:49
[2023-06-21] MEDS: NYSTATIN 100,000 UNITS/ML SUSP 5 ML ORAL.SUSP PO ×3 (12:13→20:38)
[2023-06-21] MEDS: AZITHROMYCIN 500 MG/NS 250 ML 500 MG/250 ML BAG 250 MG IVPB (12:13)
[2023-06-21 14:37] LABS: Influenza A QL RT-PCR Negative (Negative); Influenza B QL RT-PCR Negative (Negative); RSV RNA, RT-PCR Negative (Negative); SARS-CoV-2 RNA PCR Negative (Negative)
[2023-06-21] MEDS: FLUTICASONE/SALMETEROL 115-21 MCG INHALER 1 PUFF 2 PUFF INHALATION (21:09)
--- NOTE | 2023-06-21 21:36 | ECHO_ITS ---
Patient Info Name: Awa Stringer Age: 67 years : 1955 Gender: Female Ht: 60 in Wt: 116 lbs BSA: 1.50 m2 HR: 97 bpm BP: 95 / 56 mmHg Heart Rhythm: Sinus Rhythm Technical Quality: Good Exam Date: 06/21/2023 7:45 AM Exam Location: Echo Lab Patient Status: Outpatient Admit Date: 06/20/2023 Staff Ordering Physician: Vesna Connelly PA-C Regulation Supervisor: Cintia Lombardi RDCS Attending Provider: Jessica Billings MD Referring Physician: Godwin DICKINSON; Exam Type: CA echo doppler w bubble study Study Info Indications - hypoxia, edema Complete two-dimensional, color flow and Doppler transthoracic echocardiogram is performed with agitated saline. Contrast/Agitated Saline Contrast/Ag. Saline: Agitated Saline Amount: 20.00 ml Administered By: Liseth Lomas RDCS Existing IV Access: Yes IV Access Condition: patent with no signs of infiltration Summary 1. Left ventricular chamber dimension is normal. 2. Left ventricular systolic function is normal, estimated at 50-55%. 3. The left ventricular diastolic function is grade I diastolic dysfunction. 4. Right ventricular systolic function is normal. 5. Bubble study shows small right to left shunt, consistent with PFO. 6. There is trace mitral valve regurgitation. 7. There is trace tricuspid valve regurgitation. Left Ventricle Left ventricular chamber dimension is normal. Left ventricular systolic function is normal, estimated at 50-55%. There is no increased left ventricular wall thickness. The left ventricular diastolic function is grade I diastolic dysfunction. Right Ventricle Right ventricular chamber dimension is normal. Right ventricular systolic function is normal. Left Atria Left atrial chamber dimension is normal. Right Atria Right atrial chamber dimension is normal. Atrial Septum Bubble study shows small right to left shunt, consistent with PFO. Aortic Valve The aortic valve is probable trileaflet. There is no aortic valve stenosis. There is no aortic valve regurgitation. There is mild aortic valve calcification. Pulmonic Valve The pulmonic valve is not well visualized. Mitral Valve There is trace mitral valve regurgitation. Tricuspid Valve There is trace tricuspid valve regurgitation. Pericardium/Pleural There is no pericardial effusion. Inferior Vena Cava Normal inferior vena cava with >50% collapse upon inspiration consistent with normal right atrial pressure, 3 mmHg. Aorta The aortic root size at the sinus of Valsalva is normal. Left Ventricular Outflow Tract Name Value Normal LVOT 2D LVOT Diameter 1.9 cm LVOT Doppler LVOT Peak Gradient 3 mmHg LVOT Mean Gradient 1 mmHg LVOT VTI 19 cm LVOT VTI/AV VTI Ratio 0.6 LVOT Stroke Volume 54 ml LVOT CO 3.9 l/min LVOT CI 2.6 l/min/m2 Pulmonic Valve Name Value Normal
[2023-06-22] VITALS (13 sets, daily range): BP systolic 95–118; BP diastolic 51–70; PULSE 68–100; RESP 16–18; TEMP 36–36.5; O2SAT 92–97
[2023-06-22] MEDS: ALBUTEROL SULFATE NEB 2.5 MG/3 ML INH INHALATION ×4 (02:16→20:01)
[2023-06-22] MEDS: IPRATROPIUM BR 0.02% INH SOLN 0.5 MG/2.5 ML VIAL INHALATION ×4 (02:16→20:01)
[2023-06-22 06:54] LABS: Basophils Percent Auto 0.1 % (0.2-1.2); Hemoglobin 12.6 g/dL (12.0-15.0); Immature Granulocyte Absolute 0.13 K/mm3 (0.00-0.031); Immature Granulocyte Percent A 0.8 % (0-0.5); Lymphocytes Absolute Auto 1.17 K/mm3 (0.9-3.2); Lymphocytes Percent Auto 6.8 % (18.3-44.2); Mean Corpuscular HGB Conc 30.7 g/dl (32-36); Mean Corpuscular Hemoglobin 30.7 pg (26-34); Mean Corpuscular Volume 99.8 fl (80-100); Mean Platelet Volume 10.4 fl (7.4-10.4); Monocytes Absolute Auto 1.1 K/mm3 (0.1-0.6); Monocytes Percent Auto 6.2 % (2.6-8.5); Neutrophils Absolute Auto 14.8 K/mm3 (1.3-6.7); Neutrophils Percent Auto 86.1 % (45.5-73.1); Platelet Count Result 273 k/mm3 (150-375); Red Blood Count 4.11 M/mm3 (4.2-5.4); Red Cell Distribution Width 12.4 % (11.5-14.5); White Blood Count 17.2 K/mm3 (4.5-10.0)
[2023-06-22 07:15] LABS: Alanine Aminotransferase 20 U/L (6-35); Albumin Level 2.9 g/dL (3.5-5.1); Alkaline Phosphatase 67 U/L (38-126); Anion Gap 4 mmol/L (8-16); Aspartate Amino Transferase 20 U/L (14-36); Bilirubin,Total 0.3 mg/dL (0.2-1.3); Blood Urea Nitrogen 19 mg/dL (7-17); Calcium 8.5 mg/dL (8.4-10.2); Carbon Dioxide 29 mmol/L (22-30); Chloride 104 mmol/L (98-107); Estimated CRCL calculation 55 ml/min; Estimated Glomerular Filt Rate > 60; Glucose 112 mg/dL (65-110); Magnesium 2.2 mg/dL (1.6-2.3); Potassium 4.6 mmol/L (3.4-5.0); Sodium 137 mmol/L (137-145)
[2023-06-22] MEDS: TOLNAFTATE 1% POWDER 45 GM BTL 1 APPLIC TOPICAL (09:06)
[2023-06-22] MEDS: LORATADINE 10 MG TABLET PO (09:08)
[2023-06-22] MEDS: guaiFENesin 12 HR 600 MG TABCR PO ×2 (09:08→20:50)
[2023-06-22] MEDS: ASCORBIC ACID 500 MG TABLET PO (09:08)
[2023-06-22] MEDS: CHOLECALCIFEROL 1,000 UNITS TABLET 1000 UNITS PO (09:09)
[2023-06-22] MEDS: methylPREDNISolone SOD SUCC 125 MG VIAL 60 MG IV PUSH ×2 (09:15→20:50)
[2023-06-22] MEDS: NYSTATIN 100,000 UNITS/ML SUSP 5 ML ORAL.SUSP PO ×4 (09:16→20:50)
[2023-06-22] MEDS: ENOXAPARIN 40 MG/0.4 ML SYRINGE SUB-Q (09:16)
[2023-06-22] MEDS: FLUTICASONE/SALMETEROL 115-21 MCG INHALER 1 PUFF 2 PUFF INHALATION ×2 (09:34→20:02)
[2023-06-22] MEDS: UMECLIDINIUM BROMIDE 62.5 MCG ELLIPTA 1 PUFF INHALATION (09:34)
--- NOTE | 2023-06-22 09:42 | PM.PNPUL ---
Progress Note: A&P Assessment and Plan (1) Acute respiratory failure with hypoxia: Code(s): J96.01 - Acute respiratory failure with hypoxia Status: Acute (2) Asthma exacerbation: Qualifiers: Asthma severity: moderate Asthma persistence: persistent Qualified Code(s): J45.41 - Moderate persistent asthma with (acute) exacerbation Code(s): J45.901 - Unspecified asthma with (acute) exacerbation Status: Acute Assessment and Plan: 67-year-old female with long history of mild intermittent asthma presented with cough wheezing shortness of breath. Physical exam in conjunction with the diagnostic studies suggest asthma exacerbation. The patient has been on appropriate regimen with IV steroids antibiotics for possible lower respiratory tract infection and short-acting bronchodilators. Her respiratory status seems to be improving slowly. Repeat PCR negative for common viral infections. Plan; continue with current regimen of IV steroids, nebulized short-acting bronchodilators, antibiotics, DVT prophylaxis. 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 Subjective Date/time seen: 06/22/23 09:42 Interval history: Patient continues to have a cough chest tightness and respiratory wheezing. She stated that there is some improvement over the last 24 hours but still symptomatic. She has no fever chills. She has undergone echocardiogram yesterday. Review of Systems Review of Systems: All systems reviewed & are unremarkable except as noted in HPI and below (HPI and below) Objective Data Vital Signs Vital Signs: Vital Signs - 24 hr 06/21/23 09:44 06/21/23 09:44 06/21/23 13:17 Temperature Pulse Rate 90 91 Respiratory Rate 18 18 Blood Pressure Pulse Oximetry 95 Oxygen Delivery Mechanical Ventilation Oxygen Flow Rate 2 06/21/23 13:29 06/21/23 14:00 06/21/23 21:09 Temperature 36.5 C Pulse Rate 94 97 79 Respiratory Rate 18 16 18 Blood Pressure 106/64 Pulse Oximetry 98 Oxygen Delivery Oxygen Flow Rate 06/21/23 21:23 06/21/23 21:36 06/21/23 21:55 Temperature 35.7 C L Pulse Rate 79 83 83 Respiratory Rate 18 18 Blood Pressure 110/58 L Pulse Oximetry 96 96 Oxygen Delivery Mechanical Ventilation Oxygen Flow Rate 2 06/22/23 02:16 06/21/23 22:00 06/22/23 02:25 Temperature Pulse Rate 71 75 68 Respiratory Rate 18 18 Blood Pressure Pulse Oximetry 95 Oxygen Delivery Mechanical Ventilation Oxygen Flow Rate 1 06/22/23 04:25 06/22/23 09:30 06/22/23 09:36 Temperature 36.1 C L Pulse Rate 80 79 Respiratory Rate 18 18 Blood Pressure 95/51 L Pulse Oximetry 94 97 Oxygen Delivery Nasal Cannula Oxygen Flow Rate 1 Intake/Output Intake/Output: Intake & Output 06/19/23 06/20/23 06/21/23 06/22/23 23:59 23:59 23:59 23:59 Intake Total 780 1650 600 Balance 780 1650 600 Meds/Results Medications: Active Medications Generic Name Dose Route Start Last Admin Trade Name Freq PRN Reason Stop Dose Admin Acetaminophen 650 mg 06/20/23 13:45 Acetaminophen 325 Mg Tablet PO Q4H PRN Mild Pain (1-3) or Fever Hydrocodone Bitart/Acetaminophen 1 tab 06/20/23 13:45 Hydrocodone/Acetaminophen (*Crx) 5-325 Mg Tablet PO Q4H PRN Pain Rated 4-6 Albuterol 2.5 mg 06/20/23 14:00 06/22/23 09:33 Albuterol Sulfate Neb 2.5 Mg/3 Ml Inh INHALATION 2.5 mg Q6HRT NICOLE Administration Ascorbic Acid 500 mg 06/21/23 09:00 06/22/23 09:08 Ascorbic Acid 500 Mg Tablet PO 500 mg DAILY NICOLE Administration Enoxaparin Sodium 40 mg 06/21/23 09:00 06/22/23 09:16 Enoxaparin 40 Mg/0.4 Ml Syringe SUB-Q 40 mg DAILY NICOLE Administration Guaifenesin 600 mg 06/20/23 21:00 06/22/23 09:08 Guaifenesin 12 Hr 600 Mg Tabcr PO 600 mg Q12HR NICOLE Administrati
[2023-06-22] MEDS: AZITHROMYCIN 500 MG/NS 250 ML 500 MG/250 ML BAG 250 MG IVPB (12:25)
--- NOTE | 2023-06-22 15:23 | PM.IMPN ---
Progress Note: A&P Assessment and Plan (1) Acute respiratory failure with hypoxia: Code(s): J96.01 - Acute respiratory failure with hypoxia Status: Acute (2) PFO (patent foramen ovale): Code(s): Q21.12 - Patent foramen ovale Status: Acute Assessment and Plan: Left ventricular systolic function is normal, estimated at 50-55%. ? 3. The left ventricular diastolic function is grade I diastolic dysfunction. ? 4. Right ventricular systolic function is normal. ? 5. Bubble study shows small right to left shunt, consistent with PFO. (3) Asthma exacerbation in COPD: Code(s): J44.1 - Chronic obstructive pulmonary disease with (acute) exacerbation; J45.901 - Unspecified asthma with (acute) exacerbation Status: Acute Plan Supplement oxygen wean to maintain saturation above 92%. Continue Solu-Medrol and nebulized treatment. Pulmonary consult appreciated. Chest x-ray reviewed. C-reactive protein 13.9. Leukocyte count 18.8 on admission possibly due to steroid. Antibiotics continue Rocephin Zithromax 2D echo shows ejection fraction of 55% along with PFO. Cardiology consulted is Continue monitor blood pressure. lung nodule benign per biopsy done in 2021 Subjective Date/time seen: 06/22/23 15:23 Interval history: Patient still has some shortness of breath doing well patient's sputum culture her back still continuing on Rocephin Zithromax Review of Systems Review of Systems: All systems reviewed & are unremarkable except as noted in HPI and below Exam Narrative: GENERAL: Well appearing, no acute distress. HEAD: Normocephalic, atraumatic. NECK: Supple. No adenopathy, no masses. RESPIRATORY: respirations nonlabored. has rales, wheezing. CARDIOVASCULAR: Regular rate and rhythm without murmurs, . Peripheral pulses 2+ and equal bilaterally. ABDOMINAL: Soft, nontender, nondistended, no hepatosplenomegaly. Normoactive BS. MUSCULOSKELETAL: no Epigastric and no hypochondrial tenderness SKIN: Warm, dry, NEURO: A&O X3. Moves all extremities Objective Data Vital Signs Vital Signs: Vital Signs - 24 hr 06/21/23 21:09 06/21/23 21:23 06/21/23 21:36 Temperature Pulse Rate 79 79 83 Respiratory Rate 18 18 Blood Pressure Pulse Oximetry 96 Oxygen Delivery Mechanical Ventilation Oxygen Flow Rate 2 06/21/23 21:55 06/22/23 02:16 06/21/23 22:00 Temperature 35.7 C L Pulse Rate 83 71 75 Respiratory Rate 18 18 Blood Pressure 110/58 L Pulse Oximetry 96 95 Oxygen Delivery Mechanical Ventilation Oxygen Flow Rate 1 06/22/23 02:25 06/22/23 04:25 06/22/23 09:30 Temperature 36.1 C L Pulse Rate 68 80 79 Respiratory Rate 18 18 18 Blood Pressure 95/51 L Pulse Oximetry 94 Oxygen Delivery Oxygen Flow Rate 06/22/23 09:36 06/22/23 09:46 06/22/23 09:45 Temperature Pulse Rate 95 Respiratory Rate 18 Blood Pressure Pulse Oximetry 97 94 Oxygen Delivery Nasal Cannula Room Air Oxygen Flow Rate 1 06/22/23 13:30 Temperature Pulse Rate 100 Respiratory Rate 18 Blood Pressure Pulse Oximetry Oxygen Delivery Oxygen Flow Rate Intake/Output Intake/Output: Intake & Output 06/19/23 06/20/23 06/21/23 06/22/23 23:59 23:59 23:59 23:59 Intake Total 780 1650 880 Balance 780 1650 880 Meds/Results Medications: Active Medications Generic Name Dose Route Start Last Admin Trade Name Freq PRN Reason Stop Dose Admin Acetaminophen 650 mg 06/20/23 13:45 Acetaminophen 325 Mg Tablet PO Q4H PRN Mild Pain (1-3) or Fever Hydrocodone Bitart/Acetaminophen 1 tab 06/20/23 13:45 Hydrocodone/Acetaminophen (*Crx) 5-325 Mg Tablet PO Q4H PRN Pain Rated 4-6 Albuterol 2.5 mg 06/20/23 14:00 06/22/23 13:35 Albuterol Sulfate Neb 2.5 Mg/3 Ml Inh INHALATION 2.5 mg Q6HRT NICOLE Administration Ascorbic Acid 500 mg 06/21/23 09:00 06/22/23 09:08 Ascorbic Acid 500 Mg Tablet PO
[2023-06-23] VITALS (11 sets, daily range): BP systolic 119–135; BP diastolic 66–73; PULSE 72–95; RESP 15–20; TEMP 35.8–36.8; O2SAT 95–97
[2023-06-23] MEDS: UMECLIDINIUM BROMIDE 62.5 MCG ELLIPTA 1 PUFF INHALATION (08:07)
[2023-06-23] MEDS: IPRATROPIUM BR 0.02% INH SOLN 0.5 MG/2.5 ML VIAL INHALATION ×3 (08:07→20:21)
[2023-06-23] MEDS: ALBUTEROL SULFATE NEB 2.5 MG/3 ML INH INHALATION ×3 (08:07→20:21)
[2023-06-23] MEDS: FLUTICASONE/SALMETEROL 115-21 MCG INHALER 1 PUFF 2 PUFF INHALATION ×2 (08:07→20:22)
[2023-06-23] MEDS: ENOXAPARIN 40 MG/0.4 ML SYRINGE SUB-Q (08:27)
[2023-06-23] MEDS: CHOLECALCIFEROL 1,000 UNITS TABLET 1000 UNITS PO (08:27)
[2023-06-23] MEDS: LORATADINE 10 MG TABLET PO (08:27)
[2023-06-23] MEDS: guaiFENesin 12 HR 600 MG TABCR PO ×2 (08:27→21:45)
[2023-06-23] MEDS: ASCORBIC ACID 500 MG TABLET PO (08:27)
[2023-06-23] MEDS: NYSTATIN 100,000 UNITS/ML SUSP 5 ML ORAL.SUSP PO ×4 (08:28→21:46)
[2023-06-23] MEDS: methylPREDNISolone SOD SUCC 125 MG VIAL 60 MG IV PUSH ×3 (08:28→21:45)
--- NOTE | 2023-06-23 09:02 | PM.PNPUL ---
Progress Note: A&P Assessment and Plan (1) Acute respiratory failure with hypoxia: Code(s): J96.01 - Acute respiratory failure with hypoxia Status: Acute (2) Asthma exacerbation: Qualifiers: Asthma severity: moderate Asthma persistence: persistent Qualified Code(s): J45.41 - Moderate persistent asthma with (acute) exacerbation Code(s): J45.901 - Unspecified asthma with (acute) exacerbation Status: Acute Assessment and Plan: We have a 67-year-old female patient carrying a longstanding diagnosis of mild intermittent asthma, who came in with complaints of cough, wheezing, and dyspnea. The combination of physical examination findings and diagnostic studies indicate an acute exacerbation of her asthma. A sputum culture positively identified Moraxella catarrhalis, which is most likely sensitive to the current antibiotic treatment. However, she continues to report wheezing and coughing. The physical examination findings revealed bilateral wheezing, predominantly during expiration, although her gas exchange dynamics have shown improvement. Moving forward, the Solu-Medrol dosage has been escalated to a thrice daily regimen, and we will persist with her current treatment plan, comprising nebulized short-acting bronchodilators and antibiotics. In terms of mobility and activity level, the patient is endorsed to get out of bed, sit on a chair, and partake in limited ambulation within the room to promote respiratory function and overall mobility. 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 Subjective Date/time seen: 06/23/23 09:02 Interval history: Continues to complain of chest congestion cough and wheezing. Sputum production less than before. Currently on room air. Also complaining of a dry mouth and some nasal stuffiness. Afebrile. Review of Systems Review of Systems: All systems reviewed & are unremarkable except as noted in HPI and below (HPI and below) Exam Narrative: GENERAL APPEARANCE: Well developed, well nourished, alert and cooperative, and appears to be in no acute distress while on supplemental oxygen SKIN: Inspection of the skin reveals no rashes, ulcerations or petechiae. HEENT: Sclerae anicteric and conjunctivae pink and moist. Extraocular movements were intact and pupils were equal, round, and reactive to light. The oral mucosa, hard and soft palate, tongue and posterior pharynx were normal. NECK: Supple. There was no thyroid enlargement, and no tenderness, or masses were felt. CHEST: Normal AP diameter and normal contour without any kyphoscoliosis. LUNGS: Mild expiratory wheezing bilaterally CARDIAC: There was a regular rate and rhythm without any murmurs, gallops, rubs. ABDOMEN: Soft and nontender with normal bowel sounds. There was no organomegaly. LYMPH NODES: No lymphadenopathy was appreciated in the neck. EXTREMITIES: No cyanosis, clubbing or edema. NEUROLOGIC: Alert and oriented x 3. Normal affect. Objective Data Vital Signs Vital Signs: Vital Signs - 24 hr 06/22/23 09:30 06/22/23 09:36 06/22/23 09:46 Temperature Pulse Rate 79 95 Respiratory Rate 18 18 Blood Pressure Pulse Oximetry 97 Oxygen Delivery Nasal Cannula Oxygen Flow Rate 1 06/22/23 09:45 06/22/23 13:30 06/22/23 14:00 Temperature 36.5 C Pulse Rate 100 89 Respiratory Rate 18 17 Blood Pressure 118/70 Pulse Oximetry 94 93 Oxygen Delivery Room Air Oxygen Flow Rate 06/22/23 20:02 06/22/23 20:10 06/22/23 20:20 Temperature Pulse Rate 100 100 98 Respiratory Rate 18 18 Blood Pressure Pulse Oximetry 92 Oxygen Delivery Room Air Oxygen Flow Rate 06/22/23 22:00 06/23/23 05:10 06/23/23 08:08 Temperature 36.0 C L 36.1 C L Pulse Rate 91 75 90 Respiratory Rate 16 18 18 Blood Pressure 108/63 135/73 Pulse Oximetry 94 9
[2023-06-23] MEDS: ZINC SULFATE 220 MG CAPSULE PO (09:24)
[2023-06-23 09:34] LABS: Hematocrit 42.6 % (37.0-47.0); Hemoglobin 13.5 g/dL (12.0-15.0); Mean Corpuscular HGB Conc 31.7 g/dl (32-36); Mean Corpuscular Hemoglobin 30.5 pg (26-34); Mean Corpuscular Volume 96.4 fl (80-100); Mean Platelet Volume 10.1 fl (7.4-10.4); Platelet Count Result 334 k/mm3 (150-375); Red Blood Count 4.42 M/mm3 (4.2-5.4); Red Cell Distribution Width 12.4 % (11.5-14.5); White Blood Count 15.3 K/mm3 (4.5-10.0)
[2023-06-23 09:42] LABS: Alanine Aminotransferase 31 U/L (6-35); Albumin Level 3.5 g/dL (3.5-5.1); Alkaline Phosphatase 75 U/L (38-126); Anion Gap 8 mmol/L (8-16); Aspartate Amino Transferase 26 U/L (14-36); Bilirubin,Total 0.3 mg/dL (0.2-1.3); Blood Urea Nitrogen 19 mg/dL (7-17); Calcium 8.9 mg/dL (8.4-10.2); Carbon Dioxide 30 mmol/L (22-30); Chloride 100 mmol/L (98-107); Estimated CRCL calculation 48 ml/min; Estimated Glomerular Filt Rate > 60; Glucose 157 mg/dL (65-110); Potassium 4.4 mmol/L (3.4-5.0); Sodium 138 mmol/L (137-145)
--- NOTE | 2023-06-23 11:28 | PM.CNCAR ---
Assessment and Plan Assessment and plan (1) PFO (patent foramen ovale): Code(s): Q21.12 - Patent foramen ovale Status: Acute Assessment and Plan: incidental discovery of small PFO with bubble study in 2D echocardiogram this admission. Patient does not carry a known diagnosis otherwise. There is no history of documented arrhythmias, near-syncope, syncope, TIA or stroke. Patient is asymptomatic in this regard without abnormal chamber enlargement, elevated pulmonary pressures or significant valvular heart disease. There is no indication for further invasive or workup in this regard for consideration for closure. Spent a great deal time explained this concept and circumstances in which further evaluation and or closure may be appropriate. All questions answered to her and her 's satisfaction. I also explained that this finding has nothing to do with her current admission, shortness of breath, chest pain or cough. This is also not related to her transient vertiginous symptoms lasting seconds at a time. Patient resume relieved to hear this counseled with regards to potential concerns should she have TIA or stroke-like symptoms in the future. Given the lack of concerning history, structural changes or valvular heart disease she does not require direct cardiac follow-up on an outpatient basis at this time. (2) Atypical chest pain: Code(s): R07.89 - Other chest pain Status: Acute Assessment and Plan: Patient describes several different types of chest pain abdominal associated with cough, asthma exacerbations and or nebulizer treatments typically transient in nature with tightness or pressure-like sensation. She denies exertional or limiting chest discomfort concerning for angina. Her ECG is normal and she has no underlying known history of CAD. She also describes spastic and or musculoskeletal pain with pleuritic nature worse with deep breathing, movement and coughing intermittently. She describes these episodes occurring predominantly at rest or certain positions. ECG is normal as above. No indication for further ischemic workup at this time. Symptoms are not consistent with myocardial ischemia. I explained symptoms which we most concerning with regards to exertional or demand ischemia and to continue to monitor and if any new concerns limitations are noted to communicate with her physician immediately for further evaluation. We also discussed pros and cons ischemic workup and circumstances in which this would be clinically relevant. Patient and her were very appreciative our discussion, explanations and recommendations and were quite comfortable with this information and relieved. Reassured her that her echocardiogram was not consistent with regional wall motion abnormalities and her ECG was not consistent with prior infarction to suggest the presence of severe obstructive coronary artery disease. However, I also counseled them that this is not a statement reflecting the presence of any underlying CAD as that remains unknown, although not previously documented. of note, prior CT scans have not mentioned the presence of significant coronary calcification which would argue against presence of significant underlying coronary atherosclerosis. We will sign off. Patient does not require directed cardiovascular follow-up at this juncture as an outpatient may follow up with her primary care physician as scheduled. She is aware as she was counseled of concerning symptoms or new development regarding limitations that may warrant further cardiac workup and communicate with primary care physician immediately and/or present to the nearest ER via EMS. (3) Acute respiratory failure with hypoxia: Code(s): J96.01 - Acute respiratory failure with hypoxia Status: Acute Assessment and Plan: Improving prefer therapy with primary service and pulmonology. Consultations noted and appreciated. Contin
[2023-06-23] MEDS: AZITHROMYCIN 500 MG/NS 250 ML 500 MG/250 ML BAG 250 MG IVPB (12:13)
--- NOTE | 2023-06-23 14:50 | PM.IMPN ---
Progress Note: A&P Assessment and Plan (1) Acute respiratory failure with hypoxia: Code(s): J96.01 - Acute respiratory failure with hypoxia Status: Acute (2) PFO (patent foramen ovale): Code(s): Q21.12 - Patent foramen ovale Status: Acute Assessment and Plan: Left ventricular systolic function is normal, estimated at 50-55%. ? 3. The left ventricular diastolic function is grade I diastolic dysfunction. ? 4. Right ventricular systolic function is normal. ? 5. Bubble study shows small right to left shunt, consistent with PFO. (3) Asthma exacerbation in COPD: Code(s): J44.1 - Chronic obstructive pulmonary disease with (acute) exacerbation; J45.901 - Unspecified asthma with (acute) exacerbation Status: Acute Plan Supplement oxygen wean to maintain saturation above 92%. Continue Solu-Medrol and nebulized treatment. Pulmonary consult appreciated. Chest x-ray reviewed. C-reactive protein 13.9. Leukocyte count 18.8 on admission possibly due to steroid. Antibiotics continue Rocephin Zithromax 2D echo shows ejection fraction of 55% along with PFO. Cardiology consulted reviewed and appreciated no further workup for PFO Continue monitor blood pressure. lung nodule benign per biopsy done in 2021 Subjective Date/time seen: 06/23/23 14:50 Interval history: Continues to complain of chest congestion cough and wheezing. Sputum production less than before. Currently on room air. Also complaining of a dry mouth and some nasal stuffiness. Afebrile. Review of Systems Review of Systems: All systems reviewed & are unremarkable except as noted in HPI and below Exam Narrative: GENERAL: Well appearing, no acute distress. HEAD: Normocephalic, atraumatic. NECK: Supple. No adenopathy, no masses. RESPIRATORY: respirations nonlabored. , no rales, wheezing. CARDIOVASCULAR: Regular rate and rhythm without murmurs, . Peripheral pulses 2+ and equal bilaterally. ABDOMINAL: Soft, nontender, nondistended, no hepatosplenomegaly. Normoactive BS. MUSCULOSKELETAL: no Epigastric and no hypochondrial tenderness SKIN: Warm, dry, NEURO: A&O X3. Moves all extremities Objective Data Vital Signs Vital Signs: Vital Signs - 24 hr 06/22/23 20:02 06/22/23 20:10 06/22/23 20:20 Temperature Pulse Rate 100 100 98 Respiratory Rate 18 18 Blood Pressure Pulse Oximetry 92 Oxygen Delivery Room Air 06/22/23 22:00 06/23/23 05:10 06/23/23 08:08 Temperature 36.0 C L 36.1 C L Pulse Rate 91 75 90 Respiratory Rate 16 18 18 Blood Pressure 108/63 135/73 Pulse Oximetry 94 96 Oxygen Delivery 06/23/23 08:11 06/23/23 08:23 06/23/23 08:25 Temperature Pulse Rate 90 95 Respiratory Rate 18 18 Blood Pressure Pulse Oximetry 95 Oxygen Delivery Room Air Room Air 06/23/23 14:27 06/23/23 14:42 Temperature Pulse Rate 81 86 Respiratory Rate 18 18 Blood Pressure Pulse Oximetry Oxygen Delivery Intake/Output Intake/Output: Intake & Output 06/20/23 06/21/23 06/22/23 06/23/23 23:59 23:59 23:59 23:59 Intake Total 780 1650 2760 920 Balance 780 1650 2760 920 Meds/Results Medications: Active Medications Generic Name Dose Route Start Last Admin Trade Name Freq PRN Reason Stop Dose Admin Acetaminophen 650 mg 06/20/23 13:45 Acetaminophen 325 Mg Tablet PO Q4H PRN Mild Pain (1-3) or Fever Hydrocodone Bitart/Acetaminophen 1 tab 06/20/23 13:45 Hydrocodone/Acetaminophen (*Crx) 5-325 Mg Tablet PO Q4H PRN Pain Rated 4-6 Albuterol 2.5 mg 06/20/23 14:00 06/23/23 14:26 Albuterol Sulfate Neb 2.5 Mg/3 Ml Inh INHALATION 2.5 mg Q6HRT NICOLE Administration Ascorbic Acid 500 mg 06/21/23 09:00 06/23/23 08:27 Ascorbic Acid 500 Mg Tablet PO 500 mg DAILY NICOLE Administration Enoxaparin Sodium 40 mg 06/21/23 09:00 06/23/23 08:27 Enoxaparin 40 Mg/0.4 Ml Syringe SUB-Q 40 mg DAILY [facility] Administratio
[2023-06-24] VITALS (11 sets, daily range): BP systolic 122–140; BP diastolic 59–70; PULSE 64–86; RESP 18–20; TEMP 36.4–37.1; O2SAT 93–96
[2023-06-24] MEDS: IPRATROPIUM BR 0.02% INH SOLN 0.5 MG/2.5 ML VIAL INHALATION ×4 (02:34→20:35)
[2023-06-24] MEDS: ALBUTEROL SULFATE NEB 2.5 MG/3 ML INH INHALATION ×4 (02:34→20:35)
[2023-06-24] MEDS: methylPREDNISolone SOD SUCC 125 MG VIAL 60 MG IV PUSH ×3 (05:29→21:10)
[2023-06-24 06:06] LABS: Hematocrit 42.3 % (37.0-47.0); Hemoglobin 13.8 g/dL (12.0-15.0); Mean Corpuscular HGB Conc 32.6 g/dl (32-36); Mean Corpuscular Hemoglobin 30.9 pg (26-34); Mean Corpuscular Volume 94.8 fl (80-100); Mean Platelet Volume 9.8 fl (7.4-10.4); Platelet Count Result 321 k/mm3 (150-375); Red Blood Count 4.46 M/mm3 (4.2-5.4); Red Cell Distribution Width 12.1 % (11.5-14.5); White Blood Count 13.6 K/mm3 (4.5-10.0)
[2023-06-24 06:15] LABS: Alanine Aminotransferase 29 U/L (6-35); Albumin Level 3.3 g/dL (3.5-5.1); Alkaline Phosphatase 68 U/L (38-126); Anion Gap 5 mmol/L (8-16); Aspartate Amino Transferase 22 U/L (14-36); Bilirubin,Total 0.3 mg/dL (0.2-1.3); Blood Urea Nitrogen 17 mg/dL (7-17); Calcium 8.5 mg/dL (8.4-10.2); Carbon Dioxide 31 mmol/L (22-30); Chloride 100 mmol/L (98-107); Estimated CRCL calculation 48 ml/min; Estimated Glomerular Filt Rate > 60; Glucose 128 mg/dL (65-110); Sodium 136 mmol/L (137-145)
[2023-06-24] MEDS: ASCORBIC ACID 500 MG TABLET PO (08:15)
[2023-06-24] MEDS: AMOXICILLIN/CLAVULANATE K 875-125 MG TAB 1 TABLET PO ×2 (08:15→21:11)
[2023-06-24] MEDS: ZINC SULFATE 220 MG CAPSULE PO (08:15)
[2023-06-24] MEDS: CHOLECALCIFEROL 1,000 UNITS TABLET 1000 UNITS PO (08:15)
[2023-06-24] MEDS: guaiFENesin 12 HR 600 MG TABCR PO ×2 (08:15→21:11)
[2023-06-24] MEDS: LORATADINE 10 MG TABLET PO (08:16)
[2023-06-24] MEDS: NYSTATIN 100,000 UNITS/ML SUSP 5 ML ORAL.SUSP PO ×4 (08:20→21:10)
[2023-06-24] MEDS: ENOXAPARIN 40 MG/0.4 ML SYRINGE SUB-Q (08:20)
[2023-06-24] MEDS: UMECLIDINIUM BROMIDE 62.5 MCG ELLIPTA 1 PUFF INHALATION (09:01)
[2023-06-24] MEDS: FLUTICASONE/SALMETEROL 115-21 MCG INHALER 1 PUFF 2 PUFF INHALATION ×2 (09:01→20:45)
--- NOTE | 2023-06-24 09:58 | PM.PNPUL ---
Progress Note: A&P Assessment and Plan (1) Acute respiratory failure with hypoxia: Code(s): J96.01 - Acute respiratory failure with hypoxia Status: Acute (2) Asthma exacerbation: Qualifiers: Asthma severity: moderate Asthma persistence: persistent Qualified Code(s): J45.41 - Moderate persistent asthma with (acute) exacerbation Code(s): J45.901 - Unspecified asthma with (acute) exacerbation Status: Acute Assessment and Plan: We have a 67-year-old female patient carrying a longstanding diagnosis of mild intermittent asthma, who came in with complaints of cough, wheezing, and dyspnea. The combination of physical examination findings and diagnostic studies indicate an acute exacerbation of her asthma. A sputum culture positively identified Moraxella catarrhalis, which is most likely sensitive to the current antibiotic treatment. However, she continues to report wheezing and coughing. The physical examination findings revealed bilateral wheezing, predominantly during expiration, although her gas exchange dynamics have shown improvement. Her respiratory condition has shown overall improvement. The physical examination reveals decreased expiratory wheezing and her cough has become dry. She has been receiving Solu-Medrol thrice daily since yesterday. Additionally, she is on antibiotics to treat Moraxella catarrhalis. Plan: Maintain the current treatment plan. The patient's suitability for discharge to home will be evaluated in the morning. 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 Subjective Date/time seen: 06/24/23 09:58 Interval history: Patient feels better but continues to have mild cough and expiratory wheezing. Has had no sputum production. Also no new respiratory symptoms such as fever chills hemoptysis. Remaining on room air ambulating in room. Review of Systems Review of Systems: All systems reviewed & are unremarkable except as noted in HPI and below (HPI and below) Exam Narrative: GENERAL APPEARANCE: Well developed, well nourished, alert and cooperative, and appears to be in no acute distress while on supplemental oxygen SKIN: Inspection of the skin reveals no rashes, ulcerations or petechiae. HEENT: Sclerae anicteric and conjunctivae pink and moist. Extraocular movements were intact and pupils were equal, round, and reactive to light. The oral mucosa, hard and soft palate, tongue and posterior pharynx were normal. NECK: Supple. There was no thyroid enlargement, and no tenderness, or masses were felt. CHEST: Normal AP diameter and normal contour without any kyphoscoliosis. LUNGS: Mild expiratory wheezing bilaterally CARDIAC: There was a regular rate and rhythm without any murmurs, gallops, rubs. ABDOMEN: Soft and nontender with normal bowel sounds. There was no organomegaly. LYMPH NODES: No lymphadenopathy was appreciated in the neck. EXTREMITIES: No cyanosis, clubbing or edema. NEUROLOGIC: Alert and oriented x 3. Normal affect. Objective Data Vital Signs Vital Signs: Vital Signs - 24 hr 06/23/23 14:27 06/23/23 14:42 06/23/23 14:00 Temperature 36.8 C Pulse Rate 81 86 81 Respiratory Rate 18 18 15 Blood Pressure 119/68 Pulse Oximetry 95 Oxygen Delivery 06/23/23 20:24 06/23/23 20:26 06/23/23 20:29 Temperature Pulse Rate 72 72 Respiratory Rate 18 18 Blood Pressure Pulse Oximetry 97 Oxygen Delivery Room Air 06/23/23 21:05 06/24/23 02:36 06/24/23 02:41 Temperature 35.8 C L Pulse Rate 76 76 76 Respiratory Rate 20 18 18 Blood Pressure 128/66 Pulse Oximetry 97 Oxygen Delivery 06/24/23 05:22 06/24/23 09:03 06/24/23 08:50 Temperature 37.1 C Pulse Rate 82 80 Respiratory Rate 20 18 Blood Pressure 140/59 L Pulse Oximetry 93 96 Oxygen Delivery Room Air Intake/Output Intake/
[2023-06-24] MEDS: AZITHROMYCIN 250 MG TABLET 500 MG PO (12:05)
--- NOTE | 2023-06-24 12:59 | PM.IMPN ---
Progress Note: A&P Assessment and Plan (1) Acute respiratory failure with hypoxia: Code(s): J96.01 - Acute respiratory failure with hypoxia Status: Acute (2) PFO (patent foramen ovale): Code(s): Q21.12 - Patent foramen ovale Status: Acute Assessment and Plan: Left ventricular systolic function is normal, estimated at 50-55%. ? 3. The left ventricular diastolic function is grade I diastolic dysfunction. ? 4. Right ventricular systolic function is normal. ? 5. Bubble study shows small right to left shunt, consistent with PFO. (3) Asthma exacerbation in COPD: Code(s): J44.1 - Chronic obstructive pulmonary disease with (acute) exacerbation; J45.901 - Unspecified asthma with (acute) exacerbation Status: Acute Plan Supplement oxygen wean to maintain saturation above 92%. Continue Solu-Medrol and nebulized treatment. Pulmonary consult appreciated. Chest x-ray reviewed. C-reactive protein 13.9 Leukocyte count 13.8 on admission possibly due to steroid. Antibiotics continue Rocephin Zithromax 2D echo shows ejection fraction of 55% along with PFO. Cardiology consulted reviewed and appreciated no further workup for PFO Continue monitor blood pressure. lung nodule benign per biopsy done in 2021 Possible discharge in 1-2 days patient doing better. Subjective Date/time seen: 06/24/23 12:59 Interval history: Patient still has cough and shortness of breath Review of Systems Review of Systems: All systems reviewed & are unremarkable except as noted in HPI and below Exam Narrative: GENERAL: Well appearing, no acute distress. HEAD: Normocephalic, atraumatic. NECK: Supple. No adenopathy, no masses. RESPIRATORY: respirations nonlabored. , no rales, wheezing. CARDIOVASCULAR: Regular rate and rhythm without murmurs, . Peripheral pulses 2+ and equal bilaterally. ABDOMINAL: Soft, nontender, nondistended, no hepatosplenomegaly. Normoactive BS. MUSCULOSKELETAL: no Epigastric and no hypochondrial tenderness SKIN: Warm, dry, NEURO: A&O X3. Moves all extremities Objective Data Vital Signs Vital Signs: Vital Signs - 24 hr 06/23/23 14:27 06/23/23 14:42 06/23/23 14:00 Temperature 36.8 C Pulse Rate 81 86 81 Respiratory Rate 18 18 15 Blood Pressure 119/68 Pulse Oximetry 95 Oxygen Delivery 06/23/23 20:24 06/23/23 20:26 06/23/23 20:29 Temperature Pulse Rate 72 72 Respiratory Rate 18 18 Blood Pressure Pulse Oximetry 97 Oxygen Delivery Room Air 06/23/23 21:05 06/24/23 02:36 06/24/23 02:41 Temperature 35.8 C L Pulse Rate 76 76 76 Respiratory Rate 20 18 18 Blood Pressure 128/66 Pulse Oximetry 97 Oxygen Delivery 06/24/23 05:22 06/24/23 09:03 06/24/23 08:50 Temperature 37.1 C Pulse Rate 82 80 Respiratory Rate 20 18 Blood Pressure 140/59 L Pulse Oximetry 93 96 Oxygen Delivery Room Air 06/24/23 08:15 Temperature Pulse Rate Respiratory Rate Blood Pressure Pulse Oximetry Oxygen Delivery Room Air Intake/Output Intake/Output: Intake & Output 06/21/23 06/22/23 06/23/23 06/24/23 23:59 23:59 23:59 23:59 Intake Total 1650 2760 2930 1332 Balance 1650 2760 2930 1332 Meds/Results Medications: Active Medications Generic Name Dose Route Start Last Admin Trade Name Freq PRN Reason Stop Dose Admin Acetaminophen 650 mg 06/20/23 13:45 Acetaminophen 325 Mg Tablet PO Q4H PRN Mild Pain (1-3) or Fever Hydrocodone Bitart/Acetaminophen 1 tab 06/20/23 13:45 Hydrocodone/Acetaminophen (*Crx) 5-325 Mg Tablet PO Q4H PRN Pain Rated 4-6 Albuterol 2.5 mg 06/20/23 14:00 06/24/23 09:00 Albuterol Sulfate Neb 2.5 Mg/3 Ml Inh INHALATION 2.5 mg Q6HRT NICOLE Administration Amoxicillin/Clavulanate Potassium 1 tablet 06/24/23 09:00 06/24/23 08:15 Amoxicillin/Clavulanate K 875-125 Mg Tab PO 06/26/23 21:01 1 tablet Q12HR NICOLE Administration Ascorbic Acid 500
[2023-06-24] MEDS: FLUTICASONE PROPIONATE 0.05% NA SPR 16 GM BTL (*BKC) 1 SPRAY NASAL ×2 (14:30→21:11)
[2023-06-24] MEDS: polyethylene glycoL 3350 17 GM POWD.PACK PO (15:16)
[2023-06-25] VITALS (10 sets, daily range): BP systolic 115–122; BP diastolic 57–68; PULSE 74–96; RESP 16–18; TEMP 36.2–36.4; O2SAT 96
[2023-06-25] MEDS: IPRATROPIUM BR 0.02% INH SOLN 0.5 MG/2.5 ML VIAL INHALATION ×4 (02:42→21:06)
[2023-06-25] MEDS: ALBUTEROL SULFATE NEB 2.5 MG/3 ML INH INHALATION ×4 (02:43→21:05)
[2023-06-25] MEDS: methylPREDNISolone SOD SUCC 125 MG VIAL 60 MG IV PUSH ×3 (05:31→20:15)
[2023-06-25] MEDS: UMECLIDINIUM BROMIDE 62.5 MCG ELLIPTA 1 PUFF INHALATION (07:42)
[2023-06-25] MEDS: FLUTICASONE/SALMETEROL 115-21 MCG INHALER 1 PUFF 2 PUFF INHALATION ×2 (07:42→21:08)
[2023-06-25] MEDS: AMOXICILLIN/CLAVULANATE K 875-125 MG TAB 1 TABLET PO ×2 (09:22→20:14)
[2023-06-25] MEDS: ZINC SULFATE 220 MG CAPSULE PO (09:23)
[2023-06-25] MEDS: NYSTATIN 100,000 UNITS/ML SUSP 5 ML ORAL.SUSP PO ×4 (09:23→20:15)
[2023-06-25] MEDS: FLUTICASONE PROPIONATE 0.05% NA SPR 16 GM BTL (*BKC) 1 SPRAY NASAL ×2 (09:23→20:14)
[2023-06-25] MEDS: LORATADINE 10 MG TABLET PO (09:23)
[2023-06-25] MEDS: guaiFENesin 12 HR 600 MG TABCR PO ×2 (09:23→20:13)
[2023-06-25] MEDS: CHOLECALCIFEROL 1,000 UNITS TABLET 1000 UNITS PO (09:23)
[2023-06-25] MEDS: ASCORBIC ACID 500 MG TABLET PO (09:23)
[2023-06-25] MEDS: ENOXAPARIN 40 MG/0.4 ML SYRINGE SUB-Q (09:24)
[2023-06-25] MEDS: polyethylene glycoL 3350 17 GM POWD.PACK PO (09:28)
--- NOTE | 2023-06-25 11:21 | PM.PNPUL ---
Progress Note: A&P Assessment and Plan (1) Acute respiratory failure with hypoxia: Code(s): J96.01 - Acute respiratory failure with hypoxia Status: Acute (2) Asthma exacerbation: Qualifiers: Asthma severity: moderate Asthma persistence: persistent Qualified Code(s): J45.41 - Moderate persistent asthma with (acute) exacerbation Code(s): J45.901 - Unspecified asthma with (acute) exacerbation Status: Acute Assessment and Plan: We have a 67-year-old female patient carrying a longstanding diagnosis of mild intermittent asthma, who came in with complaints of cough, wheezing, and dyspnea. The combination of physical examination findings and diagnostic studies indicate an acute exacerbation of her asthma. A sputum culture positively identified Moraxella catarrhalis, which is most likely sensitive to the current antibiotic treatment. However, she continues to report wheezing and coughing. The physical examination findings revealed bilateral wheezing, predominantly during expiration, although her gas exchange dynamics have shown improvement. Her respiratory condition has shown overall improvement. The physical examination reveals decreased expiratory wheezing and her cough has become dry. She has been receiving Solu-Medrol thrice daily the last 2 days. Additionally, she is on antibiotics to treat Moraxella catarrhalis. There has been little improvement over the last 24 hours as far as expiratory wheezing. Plan: Maintain the current treatment plan. She is not ready to be discharged home as yet. 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 Subjective Date/time seen: 06/25/23 11:21 Interval history: Patient continues to have cough with no sputum production and expiratory wheezing as before. She is getting very anxious because wheezing persists. She is afebrile, remaining on room air. Review of Systems Review of Systems: All systems reviewed & are unremarkable except as noted in HPI and below (HPI and below) Exam Narrative: GENERAL APPEARANCE: Well developed, well nourished, alert and cooperative, and appears to be in no acute distress while on supplemental oxygen SKIN: Inspection of the skin reveals no rashes, ulcerations or petechiae. HEENT: Sclerae anicteric and conjunctivae pink and moist. Extraocular movements were intact and pupils were equal, round, and reactive to light. The oral mucosa, hard and soft palate, tongue and posterior pharynx were normal. NECK: Supple. There was no thyroid enlargement, and no tenderness, or masses were felt. CHEST: Normal AP diameter and normal contour without any kyphoscoliosis. LUNGS: Mild expiratory wheezing bilaterally CARDIAC: There was a regular rate and rhythm without any murmurs, gallops, rubs. ABDOMEN: Soft and nontender with normal bowel sounds. There was no organomegaly. LYMPH NODES: No lymphadenopathy was appreciated in the neck. EXTREMITIES: No cyanosis, clubbing or edema. NEUROLOGIC: Alert and oriented x 3. Normal affect. Objective Data Vital Signs Vital Signs: Vital Signs - 24 hr 06/24/23 13:07 06/24/23 13:38 06/24/23 14:00 Temperature 36.5 C Pulse Rate 82 79 86 Respiratory Rate 18 18 18 Blood Pressure 125/70 Pulse Oximetry 96 Oxygen Delivery 06/24/23 20:37 06/24/23 20:46 06/24/23 22:27 Temperature 36.4 C L Pulse Rate 69 65 64 Respiratory Rate 18 Blood Pressure 122/66 Pulse Oximetry 95 Oxygen Delivery 06/25/23 02:43 06/25/23 02:49 06/25/23 06:47 Temperature 36.2 C L Pulse Rate 88 86 74 Respiratory Rate 16 16 18 Blood Pressure 122/68 Pulse Oximetry 96 Oxygen Delivery 06/25/23 07:43 06/25/23 07:45 06/25/23 08:00 Temperature Pulse Rate 88 Respiratory Rate 16 Blood Pressure Pulse Oximetry 96 Oxygen Delivery Room Air Room Air Int
--- NOTE | 2023-06-25 12:29 | PM.IMPN ---
Progress Note: A&P Assessment and Plan (1) Acute respiratory failure with hypoxia: Code(s): J96.01 - Acute respiratory failure with hypoxia Status: Acute (2) PFO (patent foramen ovale): Code(s): Q21.12 - Patent foramen ovale Status: Acute Assessment and Plan: Left ventricular systolic function is normal, estimated at 50-55%. ? 3. The left ventricular diastolic function is grade I diastolic dysfunction. ? 4. Right ventricular systolic function is normal. ? 5. Bubble study shows small right to left shunt, consistent with PFO. (3) Asthma exacerbation in COPD: Code(s): J44.1 - Chronic obstructive pulmonary disease with (acute) exacerbation; J45.901 - Unspecified asthma with (acute) exacerbation Status: Acute Plan Supplement oxygen wean to maintain saturation above 92%. Continue Solu-Medrol and nebulized treatment. Pulmonary consult appreciated. Chest x-ray reviewed. C-reactive protein 13.9 Leukocyte count 13.8 on admission possibly due to steroid. Antibiotics continue Rocephin Zithromax 2D echo shows ejection fraction of 55% along with PFO. Cardiology consulted reviewed and appreciated no further workup for PFO Continue monitor blood pressure. lung nodule benign per biopsy done in 2021 Possible discharge in 1-2 days patient doing better. Subjective Date/time seen: 06/25/23 12:29 Interval history: Patient still has cough and shortness of breath Review of Systems Review of Systems: All systems reviewed & are unremarkable except as noted in HPI and below Exam Narrative: GENERAL: Well appearing, no acute distress. HEAD: Normocephalic, atraumatic. NECK: Supple. No adenopathy, no masses. RESPIRATORY: respirations nonlabored. , no rales, wheezing. CARDIOVASCULAR: Regular rate and rhythm without murmurs, . Peripheral pulses 2+ and equal bilaterally. ABDOMINAL: Soft, nontender, nondistended, no hepatosplenomegaly. Normoactive BS. MUSCULOSKELETAL: no Epigastric and no hypochondrial tenderness SKIN: Warm, dry, NEURO: A&O X3. Moves all extremities Objective Data Vital Signs Vital Signs: Vital Signs - 24 hr 06/24/23 13:07 06/24/23 13:38 06/24/23 14:00 Temperature 36.5 C Pulse Rate 82 79 86 Respiratory Rate 18 18 18 Blood Pressure 125/70 Pulse Oximetry 96 Oxygen Delivery 06/24/23 20:37 06/24/23 20:46 06/24/23 22:27 Temperature 36.4 C L Pulse Rate 69 65 64 Respiratory Rate 18 Blood Pressure 122/66 Pulse Oximetry 95 Oxygen Delivery 06/25/23 02:43 06/25/23 02:49 06/25/23 06:47 Temperature 36.2 C L Pulse Rate 88 86 74 Respiratory Rate 16 16 18 Blood Pressure 122/68 Pulse Oximetry 96 Oxygen Delivery 06/25/23 07:43 06/25/23 07:45 06/25/23 08:00 Temperature Pulse Rate 88 Respiratory Rate 16 Blood Pressure Pulse Oximetry 96 Oxygen Delivery Room Air Room Air Intake/Output Intake/Output: Intake & Output 06/22/23 06/23/23 06/24/23 06/25/23 23:59 23:59 23:59 23:59 Intake Total 2760 2930 2552 960 Balance 2760 2930 2552 960 Meds/Results Medications: Active Medications Generic Name Dose Route Start Last Admin Trade Name Freq PRN Reason Stop Dose Admin Acetaminophen 650 mg 06/20/23 13:45 Acetaminophen 325 Mg Tablet PO Q4H PRN Mild Pain (1-3) or Fever Hydrocodone Bitart/Acetaminophen 1 tab 06/20/23 13:45 Hydrocodone/Acetaminophen (*Crx) 5-325 Mg Tablet PO Q4H PRN Pain Rated 4-6 Albuterol 2.5 mg 06/20/23 14:00 06/25/23 07:39 Albuterol Sulfate Neb 2.5 Mg/3 Ml Inh INHALATION 2.5 mg Q6HRT NICOLE Administration Amoxicillin/Clavulanate Potassium 1 tablet 06/24/23 09:00 06/25/23 09:22 Amoxicillin/Clavulanate K 875-125 Mg Tab PO 06/26/23 21:01 1 tablet Q12HR NICOLE Administration Ascorbic Acid 500 mg 06/21/23 09:00 06/25/23 09:23 Ascorbic Acid 500 Mg Tablet PO 500 mg DAILY NICOLE Administration Enoxaparin Sodium 40 m
[2023-06-26] VITALS (13 sets, daily range): BP systolic 117–127; BP diastolic 63–70; PULSE 77–86; RESP 12–18; TEMP 36.2–36.8; O2SAT 96–99
[2023-06-26] MEDS: ALBUTEROL SULFATE NEB 2.5 MG/3 ML INH INHALATION ×2 (02:29→07:12)
[2023-06-26] MEDS: IPRATROPIUM BR 0.02% INH SOLN 0.5 MG/2.5 ML VIAL INHALATION ×2 (02:30→07:12)
[2023-06-26] MEDS: methylPREDNISolone SOD SUCC 125 MG VIAL 60 MG IV PUSH ×3 (05:16→20:56)
[2023-06-26] MEDS: UMECLIDINIUM BROMIDE 62.5 MCG ELLIPTA 1 PUFF INHALATION (07:26)
[2023-06-26] MEDS: FLUTICASONE/SALMETEROL 115-21 MCG INHALER 1 PUFF 2 PUFF INHALATION ×2 (07:27→21:38)
[2023-06-26] MEDS: ASCORBIC ACID 500 MG TABLET PO (08:17)
[2023-06-26] MEDS: LORATADINE 10 MG TABLET PO (08:17)
[2023-06-26] MEDS: guaiFENesin 12 HR 600 MG TABCR PO ×2 (08:17→20:50)
[2023-06-26] MEDS: ZINC SULFATE 220 MG CAPSULE PO (08:17)
[2023-06-26] MEDS: AMOXICILLIN/CLAVULANATE K 875-125 MG TAB 1 TABLET PO ×2 (08:17→20:50)
[2023-06-26] MEDS: CHOLECALCIFEROL 1,000 UNITS TABLET 1000 UNITS PO (08:17)
[2023-06-26] MEDS: FLUTICASONE PROPIONATE 0.05% NA SPR 16 GM BTL (*BKC) 1 SPRAY NASAL ×2 (08:17→20:51)
[2023-06-26] MEDS: NYSTATIN 100,000 UNITS/ML SUSP 5 ML ORAL.SUSP PO ×4 (08:26→20:50)
--- NOTE | 2023-06-26 09:03 | PM.PNPUL ---
Progress Note: A&P Assessment and Plan (1) Acute respiratory failure with hypoxia: Code(s): J96.01 - Acute respiratory failure with hypoxia Status: Acute (2) Asthma exacerbation: Qualifiers: Asthma severity: moderate Asthma persistence: persistent Qualified Code(s): J45.41 - Moderate persistent asthma with (acute) exacerbation Code(s): J45.901 - Unspecified asthma with (acute) exacerbation Status: Acute Assessment and Plan: We have a 67-year-old female patient carrying a longstanding diagnosis of mild intermittent asthma, who came in with complaints of cough, wheezing, and dyspnea. The combination of physical examination findings and diagnostic studies indicate an acute exacerbation of her asthma. A sputum culture positively identified Moraxella catarrhalis, which is most likely sensitive to the current antibiotic treatment. Her respiratory condition has shown overall improvement. On today's physical exam she has no expiratory wheezing. . Plan: Okay to DC patient home. Patient should continue with Augmentin current dose for another 5 days, Advair HFA 115/21 2 puffs twice daily, rescue albuterol inhaler prednisone taper regimen as follows: Prednisone 25 mg daily for 3 days, then prednisone 20 mg daily for 3 days, then prednisone 15 mg daily for 3 days, then prednisone 10 mg daily for 3 days then stop. Patient will follow-up with her bed and breakfast cook in the outpatient clinic in approximately 2 weeks from today. Will sign off please call with any questions. 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 Subjective Date/time seen: 06/26/23 09:03 Interval history: Doing better today. Less coughing no wheezing. Review of Systems Review of Systems: All systems reviewed & are unremarkable except as noted in HPI and below (HPI and below) Exam Narrative: GENERAL APPEARANCE: Well developed, well nourished, alert and cooperative, and appears to be in no acute distress while on supplemental oxygen SKIN: Inspection of the skin reveals no rashes, ulcerations or petechiae. HEENT: Sclerae anicteric and conjunctivae pink and moist. Extraocular movements were intact and pupils were equal, round, and reactive to light. The oral mucosa, hard and soft palate, tongue and posterior pharynx were normal. NECK: Supple. There was no thyroid enlargement, and no tenderness, or masses were felt. CHEST: Normal AP diameter and normal contour without any kyphoscoliosis. LUNGS: Mild expiratory wheezing bilaterally CARDIAC: There was a regular rate and rhythm without any murmurs, gallops, rubs. ABDOMEN: Soft and nontender with normal bowel sounds. There was no organomegaly. LYMPH NODES: No lymphadenopathy was appreciated in the neck. EXTREMITIES: No cyanosis, clubbing or edema. NEUROLOGIC: Alert and oriented x 3. Normal affect. Objective Data Vital Signs Vital Signs: Vital Signs - 24 hr 06/25/23 14:01 06/25/23 14:00 06/25/23 20:00 Temperature 36.4 C L Pulse Rate 88 96 80 Respiratory Rate 16 16 16 Blood Pressure 115/57 L Pulse Oximetry 96 96 Oxygen Delivery Room Air Fraction of Inspired Oxygen 28 06/25/23 21:08 06/25/23 22:00 06/26/23 02:30 Temperature 36.3 C L Pulse Rate 86 83 82 Respiratory Rate 17 18 16 Blood Pressure 120/57 L Pulse Oximetry 96 Oxygen Delivery Fraction of Inspired Oxygen 06/26/23 02:45 06/26/23 05:00 06/26/23 07:12 Temperature 36.8 C Pulse Rate 84 86 Respiratory Rate 16 18 Blood Pressure 117/70 Pulse Oximetry 98 97 Oxygen Delivery Room Air Fraction of Inspired Oxygen 06/26/23 07:12 06/26/23 07:29 Temperature Pulse Rate 86 83 Respiratory Rate 16 16 Blood Pressure Pulse Oximetry Oxygen Delivery Fraction of Inspired Oxygen Intake/Output Intake/Output: Intake & Output 06/13
--- NOTE | 2023-06-26 09:44 | PM.IMPN ---
Progress Note: A&P Assessment and Plan (1) Acute respiratory failure with hypoxia: Code(s): J96.01 - Acute respiratory failure with hypoxia Status: Acute (2) PFO (patent foramen ovale): Code(s): Q21.12 - Patent foramen ovale Status: Acute Assessment and Plan: Left ventricular systolic function is normal, estimated at 50-55%. ? 3. The left ventricular diastolic function is grade I diastolic dysfunction. ? 4. Right ventricular systolic function is normal. ? 5. Bubble study shows small right to left shunt, consistent with PFO. (3) Asthma exacerbation in COPD: Code(s): J44.1 - Chronic obstructive pulmonary disease with (acute) exacerbation; J45.901 - Unspecified asthma with (acute) exacerbation Status: Acute Plan Supplement oxygen wean to maintain saturation above 92%. Continue Solu-Medrol and nebulized treatment. Pulmonary consult appreciated. Chest x-ray reviewed. C-reactive protein 13.9 Leukocyte count 13.6 on admission possibly due to steroid. Antibiotics continue Rocephin Zithromax Discharge the patient on Augmentin tomorrow 2D echo shows ejection fraction of 55% along with PFO. Cardiology consulted reviewed and appreciated no further workup for PFO Continue monitor blood pressure. lung nodule benign per biopsy done in 2021 Possible discharge in a.m. if patient feels up to it. Subjective Date/time seen: 06/26/23 09:44 Interval history: Feeling a lot better but still has some cough and shortness of breath. Much improved with increasing steroids yesterday Review of Systems Review of Systems: All systems reviewed & are unremarkable except as noted in HPI and below Exam Narrative: GENERAL: Well appearing, no acute distress. HEAD: Normocephalic, atraumatic. NECK: Supple. No adenopathy, no masses. RESPIRATORY: respirations nonlabored. , no rales, wheezing. CARDIOVASCULAR: Regular rate and rhythm without murmurs, . Peripheral pulses 2+ and equal bilaterally. ABDOMINAL: Soft, nontender, nondistended, no hepatosplenomegaly. Normoactive BS. MUSCULOSKELETAL: no Epigastric and no hypochondrial tenderness SKIN: Warm, dry, NEURO: A&O X3. Moves all extremities Objective Data Vital Signs Vital Signs: Vital Signs - 24 hr 06/25/23 14:01 06/25/23 14:00 06/25/23 20:00 Temperature 36.4 C L Pulse Rate 88 96 80 Respiratory Rate 16 16 16 Blood Pressure 115/57 L Pulse Oximetry 96 96 Oxygen Delivery Room Air Fraction of Inspired Oxygen 06/25/23 21:08 06/25/23 22:00 06/26/23 02:30 Temperature 36.3 C L Pulse Rate 86 83 82 Respiratory Rate 17 18 16 Blood Pressure 120/57 L Pulse Oximetry 96 Oxygen Delivery Fraction of Inspired Oxygen 06/26/23 02:45 06/26/23 05:00 06/26/23 07:12 Temperature 36.8 C Pulse Rate 84 86 Respiratory Rate 16 18 Blood Pressure 117/70 Pulse Oximetry 98 97 Oxygen Delivery Room Air Fraction of Inspired Oxygen 06/26/23 07:12 06/26/23 07:29 Temperature Pulse Rate 86 83 Respiratory Rate 16 16 Blood Pressure Pulse Oximetry Oxygen Delivery Fraction of Inspired Oxygen Intake/Output Intake/Output: Intake & Output 06/23/23 06/24/23 06/25/23 06/26/23 23:59 23:59 23:59 23:59 Intake Total 2930 2552 2310 450 Balance 2930 2552 2310 450 Meds/Results Medications: Active Medications Generic Name Dose Route Start Last Admin Trade Name Freq PRN Reason Stop Dose Admin Acetaminophen 650 mg 06/20/23 13:45 Acetaminophen 325 Mg Tablet PO Q4H PRN Mild Pain (1-3) or Fever Hydrocodone Bitart/Acetaminophen 1 tab 06/20/23 13:45 Hydrocodone/Acetaminophen (*Crx) 5-325 Mg Tablet PO Q4H PRN Pain Rated 4-6 Albuterol 2.5 mg 06/20/23 14:00 06/26/23 07:12 Albuterol Sulfate Neb 2.5 Mg/3 Ml Inh INHALATION 2.5 mg Q6HRT NICOLE Administration Amoxicillin/Clavulanate Potassium 1 tablet 06/24/23 09:00 06/26/23 08:17 Amoxicillin/Clav
[2023-06-26] MEDS: IPRATROPIUM 0.5 MG/ALBUTEROL SULFATE 2.5 MG AMPUL.NEB 3 ML INHALATION ×2 (13:24→21:37)
[2023-06-27] VITALS (7 sets, daily range): BP systolic 123–125; BP diastolic 68–69; PULSE 82–87; RESP 16–18; TEMP 36.1–36.5; O2SAT 97–98
[2023-06-27] MEDS: IPRATROPIUM 0.5 MG/ALBUTEROL SULFATE 2.5 MG AMPUL.NEB 3 ML INHALATION ×2 (02:29→08:19)
[2023-06-27] MEDS: methylPREDNISolone SOD SUCC 125 MG VIAL 60 MG IV PUSH (05:41)
[2023-06-27] MEDS: UMECLIDINIUM BROMIDE 62.5 MCG ELLIPTA 1 PUFF INHALATION (08:22)
[2023-06-27] MEDS: FLUTICASONE/SALMETEROL 115-21 MCG INHALER 1 PUFF 2 PUFF INHALATION (08:22)
[2023-06-27] MEDS: NYSTATIN 100,000 UNITS/ML SUSP 5 ML ORAL.SUSP PO ×2 (08:38→12:45)
[2023-06-27] MEDS: CHOLECALCIFEROL 1,000 UNITS TABLET 1000 UNITS PO (08:39)
[2023-06-27] MEDS: guaiFENesin 12 HR 600 MG TABCR PO (08:39)
[2023-06-27] MEDS: ASCORBIC ACID 500 MG TABLET PO (08:39)
[2023-06-27] MEDS: FLUTICASONE PROPIONATE 0.05% NA SPR 16 GM BTL (*BKC) 1 SPRAY NASAL (08:39)
[2023-06-27] MEDS: LORATADINE 10 MG TABLET PO (08:39)
[2023-06-27] MEDS: ZINC SULFATE 220 MG CAPSULE PO (08:39)
--- NOTE | 2023-06-27 13:33 | PM.DS ---
DS: Admitting Diagnosis Discharge Date 06/27/2023 Admitting Diagnosis COPD exacerbation Acute hypoxic respiratory failure DS: Discharge Diagnosis Discharge Diagnosis (1) Acute respiratory failure with hypoxia: Code(s): J96.01 - Acute respiratory failure with hypoxia Status: Acute Assessment and Plan: Wean oxygen (2) PFO (patent foramen ovale): Code(s): Q21.12 - Patent foramen ovale Status: Acute Assessment and Plan: Left ventricular systolic function is normal, estimated at 50-55%. ? 3. The left ventricular diastolic function is grade I diastolic dysfunction. ? 4. Right ventricular systolic function is normal. ? 5. Bubble study shows small right to left shunt, consistent with PFO. (3) Asthma exacerbation in COPD: Code(s): J44.1 - Chronic obstructive pulmonary disease with (acute) exacerbation; J45.901 - Unspecified asthma with (acute) exacerbation Status: Acute Plan Supplement oxygen wean to maintain saturation above 92%. Continue Solu-Medrol and nebulized treatment. Pulmonary consult appreciated. Chest x-ray reviewed. C-reactive protein 13.9 Leukocyte count 13.6 on admission possibly due to steroid. Antibiotics continue Rocephin Zithromax Discharge the patient on Augmentin tomorrow 2D echo shows ejection fraction of 55% along with PFO. Cardiology consulted reviewed and appreciated no further workup for PFO Continue monitor blood pressure. lung nodule benign per biopsy done in 2021 Will DC today, 06/27/2023 DS: Summary Hospital Course Reason for hospitalization: Shortness of breath; COPD exacerbation Hospital Course: This is a very pleasant 67-year-old female with asthma who presented to the emergency department via private vehicle from home for evaluation of shortness of breath. The patient provides the following history. She has not felt well for about 3 or 4 days with cough productive of thick greenish yellow phlegm and increasing dyspnea on lesser and lesser exertion. She also endorses tightness in her chest with reports that it feels as though she cannot take in a deep breath. She has been using her maintenance inhaler at home (she is on fluticasone, no longer on Spiriva as she cannot afford it) and nebulizers 4 times a day which have not helped much. She had some leftover prednisone at home and she took 40 mg each day for the last 3 days for her wheezing though that is not helped either. She denies fever, chills, sweats, sinus congestion, sore throat, pleuritic pain, nausea, and vomiting. She also denies sick contacts and recent travel. She was afebrile on arrival to the emergency department. SpO2 has been as low and 84% on room air and she is currently on 2 L.? Her labs were pretty unremarkable aside from a WBC count of 18.8.? She tested negative for influenza, RSV, and COVID. 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 She received 125 mg IV Solu-Medrol and a DuoNeb in the ED and she is being admitted in this setting for further treatment. With an improved clinical status, she will be discharged home on Augmentin, Solumedrol, bronchodilators and Anti-tussives today, 06/27/2023 Status at Discharge Overall status at discharge: patient is progressing back to baseline Time Spent with Patient Time attestation: Total time spent providing and/or coordinating discharge services: Time spent: Greater than 30 minutes Exam Narrative: GENERAL: Well appearing, no acute distress. HEAD: Normocephalic, atraumatic. NECK: Supple. No adenopathy, no masses. RESPIRATORY: respirations nonlabored. , no rales, wheezing. CARDIOVASCULAR: Regular rate and rhythm without murmurs, . Peripheral pulses 2+ and equal bilaterally. ABDOMINAL: Soft, nontender, nondistended, no hepatosplenomegaly. Normoactive BS. MUSCULOSKELETAL: no Epigas
== END 2023-06-27 14:14 | disposition home or self-care (01) | DRG 190 ==
LOC: ANHED 13:53 → ANH3MEDSUR 14:38
PROVIDERS: Internal Medicine; Nurse Practitioner; Nurse Practitioner Family; Physician Assistant; Admitting Provider General Practice; Emergency Provider Emergency Medicine; PCP Internal Medicine; Visit Provider Internal Medicine
DX: J44.1 Chronic obstructive pulmonary disease with (acute) exacerbation (principal); J96.01 Acute respiratory failure with hypoxia; J45.41 Moderate persistent asthma with (acute) exacerbation; B37.0 Candidal stomatitis; Q21.12 Patent foramen ovale; Z20.822 Contact with and (suspected) exposure to COVID-19; B96.89 Other specified bacterial agents as the cause of diseases classified elsewhere; R91.1 Solitary pulmonary nodule; R07.89 Other chest pain; R42 Dizziness and giddiness; Z90.49 Acquired absence of other specified parts of digestive tract; Z90.710 Acquired absence of both cervix and uterus; Z87.891 Personal history of nicotine dependence
CPT/HCPCS: 36415; 71045; 80048; 80053; 83735; 84145; 85025; 85027; 86140; 87070; 87077; 87185; 87205; 87637; 93005; 93306; 94640; 94667; 94668; 96365; 96367; 96372; 96375; 96376; 99285; A9270; G0378; J0456; J0696; J1650; J2930; J3475

== ENCOUNTER 2023-10-12 08:55 | Outpatient (CLI) | payer MEDICARE, OTHER, SELFPAY ==
--- NOTE | ~2023-10-12 | CT_ITS ---
CT Scan of the Chest without Contrast: Clinical Indication: Lung cancer screening, history of nicotine dependence Technique: Contiguous sections were acquired throughout the chest without intravenous contrast. Dose reduction technique was used on this scan by utilizing automated exposure control and iterative recon struction technique. The dose-length product (DLP) was 65.14 mGy-cm. COMPARISON: 12/07/2021 Findings: There is no evidence of any significant mediastinal, hilar or axillary lymphadenopathy. The mediastin al soft tissues appear normal. There is no evidence of pleural or pericardial effusion. Stable 1.4 cm right upper lobe pulmonary nodule with probable central calcification. Several addition al subcentimeter right upper lobe and left upper lobe pulmonary nodules are unchanged. There is mild biapical scarring. There is stable scarring in the anteromedial right upper lobe. There is chronic sc arring or atelectasis at the lingula. Stable subcentimeter nodule in the left lower lobe. Images through the upper abdomen reveal no abnormalities. Impression: Lung RADS 2: Benign appearance. 12 month follow-up screening CT advised. Reviewed, dictated and finalized at [facility]. Impression: Lung RADS 2: Benign appearance. 12 month follow-up screening CT advised.
--- NOTE | 2023-10-13 08:23 | WPDPFTINT ---
PFT Procedure Performed PFT Procedure Performed Spirometry with Pre/Post Bronchodilator Plethysmography (Lung Vol) Diffusing Cap (DLCO) Flow Vol Loop PFT Interpretation Lung volumes were measured with the body plethysmography method. The elevated FRC and RV are indicative of air trapping and the elevated TLC of lung hyperinflation. Spirometry showed diminished expiratory flow rates and a diminished FEV1 to FVC ratio 42%, consistent with obstructive airway disease. Following administration of a bronchodilator there was no significant increase in the expiratory flow rates. Lung diffusion capacity is mildly reduced at 65% predicted. The flow-volume loop is consistent with severe emphysema. Impression: Moderately severe obstructive airway disease with air trapping, lung hyperinflation and no response to bronchodilators on this testing.
== END 2023-10-12 08:56 | disposition home or self-care (01) ==
LOC: ANHIMG 09:01
PROVIDERS: PCP Internal Medicine; Referring Provider Nurse Practitioner Family; Visit Provider Internal Medicine Pulmonary Disease
DX: J61 Pneumoconiosis due to asbestos and other mineral fibers (principal); Z12.2 Encounter for screening for malignant neoplasm of respiratory organs; Z87.891 Personal history of nicotine dependence; R94.2 Abnormal results of pulmonary function studies
CPT/HCPCS: 71271; 94060; 94726; 94729

== ENCOUNTER 2024-04-19 08:59 | Outpatient (CLI) | payer MEDICARE, OTHER, SELFPAY ==
[2024-04-19 09:25] LABS: Basophils Absolute Auto 0.1 K/mm3 (0.0-0.1); Basophils Percent Auto 0.9 % (0.2-1.2); Eosinophils Absolute Auto 0.3 K/mm3 (0-0.3); Eosinophils Percent Auto 4.2 % (0-4.4); Hematocrit 43.8 % (37.0-47.0); Hemoglobin 14.7 g/dL (12.0-15.0); Immature Granulocyte Absolute 0.02 K/mm3 (0.00-0.031); Immature Granulocyte Percent A 0.3 % (0-0.5); Lymphocytes Absolute Auto 1.77 K/mm3 (0.9-3.2); Lymphocytes Percent Auto 25.8 % (18.3-44.2); Mean Corpuscular HGB Conc 33.6 g/dl (32-36); Mean Corpuscular Hemoglobin 31.6 pg (26-34); Mean Corpuscular Volume 94.2 fl (80-100); Mean Platelet Volume 9.8 fl (7.4-10.4); Monocytes Absolute Auto 0.9 K/mm3 (0.1-0.6); Neutrophils Absolute Auto 3.8 K/mm3 (1.3-6.7); Neutrophils Percent Auto 55.8 % (45.5-73.1); Platelet Count Result 260 k/mm3 (150-375); Red Blood Count 4.65 M/mm3 (4.2-5.4); Red Cell Distribution Width 12.1 % (11.5-14.5); White Blood Count 6.9 K/mm3 (4.5-10.0)
[2024-04-19 09:41] LABS: Alanine Aminotransferase 20 U/L (6-35); Albumin Level 3.9 g/dL (3.5-5.1); Alkaline Phosphatase 77 U/L (38-126); Anion Gap 2 mmol/L (4-12); Aspartate Amino Transferase 26 U/L (14-36); Bilirubin,Total 0.5 mg/dL (0.2-1.3); Blood Urea Nitrogen 11 mg/dL (7-17); Calcium 9.3 mg/dL (8.4-10.2); Carbon Dioxide 32 mmol/L (22-30); Chloride 104 mmol/L (98-107); Cholesterol 176 mg/dL (0-200); Estimated Glomerular Filt Rate > 60; Glucose 91 mg/dL (65-110); HDL Direct 65 mg/dL; Potassium 4.2 mmol/L (3.4-5.0); Sodium 138 mmol/L (137-145); Triglycerides 92 mg/dL (<150)
[2024-04-19 09:52] LABS: LDL Cholesterol Direct 84 mg/dL
[2024-04-19 10:25] LABS: Vitamin D 25 Hydroxy 35.2 ng/mL
== END 2024-04-19 09:00 | disposition home or self-care (01) ==
PROVIDERS: PCP Internal Medicine; Visit Provider Nurse Practitioner
DX: R07.89 Other chest pain (principal); J44.89 Other specified chronic obstructive pulmonary disease; R53.83 Other fatigue; E55.9 Vitamin D deficiency, unspecified; Z13.29 Encounter for screening for other suspected endocrine disorder; Z13.220 Encounter for screening for lipoid disorders
CPT/HCPCS: 36415; 80053; 80061; 82306; 84443; 85025

== ENCOUNTER 2024-06-23 20:03 | Inpatient (IN) | payer MEDICARE, OTHER, SELFPAY ==
[2024-06-23] VITALS (8 sets, daily range): BP systolic 111–122; BP diastolic 51–66; PULSE 106–127; RESP 19–28; TEMP 37.4; O2SAT 90–98
--- NOTE | ~2024-06-23 | CT_ITS ---
EXAMINATION: CT diagnostic chest w con DATE: 06/23/2024 23:58 INDICATION: Abnormal right lung opacity reported on 06/23/2024 AP and lateral chest TECHNIQUE: Computed tomography (CT) of the chest was performed without intravenous contrast. Automate d exposure control and iterative reconstruction technique were employed. Exam dose: 135.52 mGy-cm to sam exam DLP. COMPARISON: None FINDINGS: There is a 10 x 13 mm mass in the right upper lobe likely due to bronchogenic carcinoma. Bilateral hyperinflation/emphysema. There is focal infiltrate and/atelectasis is noted involving the anteromedial right mid lung. There i s tree-in-bud infiltrate in the posteromedial right upper lobe and anterolateral right upper lobe and the lingula. Scattered multifocal mild right lower lobe tree-in-bud infiltrate. Normal heart size. No pericardial or pleural effusion. No thoracic aortic aneurysm or dissection. No hilar or mediastinal mass lesion or lymphadenopathy. Small sliding hiatal hernia Normal morphology of the adrenal glands. Included upper abdominal structures are unremarkable. No suspicious osteolytic or osteoblastic lesions are noted. IMPRESSION: Suspected 10 x 13 mm right upper lobe bronchogenic carcinoma Emphysema Multifocal pulmonary infiltrates suggesting bilateral pneumonia Reviewed, dictated and finalized at [facility]. Reviewed, dictated and finalized at [facility]. OSTATIC TESTER
--- NOTE | ~2024-06-23 | XR_ITS ---
XR chest 2V Ordering provider: Martin Millan MD History: 68 years Female with . SOB . Comparison: June 20, 2023 FINDINGS: MEDIASTINUM: The cardiac silhouette is not enlarged. LUNGS: No effusions or pneumothorax. Opacification in the lower lobes suggestive of atelectasis versu s pneumonia. Opacity in the right upper lobe area is not well demonstrated with possible rib fracture in the area. CT evaluation advised. OTHER: No free air under the diaphragm. IMPRESSION: Bibasilar opacification more on the left side suggestive of pneumonia. Highly suggestive opacity in the right upper lobe with destructive changes in the adjacent rib. CT ev aluation is advised. Reviewed, dictated and finalized at [facility]. 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 Highly suggestive opacity in the right upper lobe with destructive changes in t he adjacent rib. CT evaluation is advised.
--- NOTE | 2024-06-23 21:24 | ECG_ITS ---
Test Date: 2024-06-23 21:34:20 Measurements Intervals [place] Rate: 112 P: 79 MD: 117 QRS: 44 QRSD: 80 T: 66 QT: 303 QTc: 415 Interpretive Statements SINUS TACHYCARDIA WITH SHORT MD INTERVAL POSSIBLE RIGHT VENTRICULAR CONDUCTION DELAY [RSR (QR) IN V1/V2] ABNORMAL ECG Electronically Signed On 06-24-2024 08:28:35 CONVEYOR TENDER by Michel Blake M.D.
--- NOTE | 2024-06-23 21:47 | ED_ITS ---
HPI - General Adult General Chief complaint: Shortness of Breath/Dyspnea Stated complaint: SOB Time Seen by Provider: 06/23/24 21:22 History of Present Illness HPI narrative: 68-year-old female presenting to the emergency department for evaluation of worsening shortness of breath. Patient does have a history of as month states she does have asthma exacerbations typically every June. Patient reports over the last 3 days she has had worsening shortness of breath. Patient does not use oxygen at home. Patient states that she has been using nebulized albuterol but states that has not been helping over the last day or so. Patient reports that her oxygenation had dipped down to the mid 80s at home. Patient was found to be 80% at check-in at rest. Patient is saturating better on 2 L of oxygen by nasal cannula and appears to be in no respiratory distress at time of evaluation. Patient denies any chest pain. Patient does report body aches and fatigue. Patient did have a flu shot and pneumonia shot but not a COVID shot. Related Data Home Medications ?Medication ?Instructions ?Recorded ?Confirmed ?Last Taken ?Type cholecalciferol (vitamin D3) 25 1,000 unit PO DAILY 05/04/19 04/04/24 09/09/21 History mcg (1,000 unit) capsule zinc 50 mg tablet 50 mg PO DAILY 12/11/21 04/04/24 Unknown History ascorbic acid (vitamin C) 500 mg 500 mg PO DAILY 06/20/23 04/04/24 Unknown History tablet (Vitamin C) cetirizine 10 mg tablet (Zyrtec) 10 mg PO QAM 06/20/23 04/04/24 Unknown History Allergies Allergy/AdvReac Type Severity Reaction Status Date / Time meperidine AdvReac Mild Nausea Verified 06/23/24 20:12 Review of Systems 2 Review of Systems: All systems reviewed & are unremarkable except as noted in HPI and below PMFSH Past Medical History Medical History Asthma Pulmonary nodule Biopsied in August 2021-benign. Surgical History Surgical History History of appendectomy History of section History of hysterectomy History of lung biopsy History of tubal ligation Family History Family History Sibling Family history of lung cancer Patient's sister is in good health 2 sisters recently diagnosed with hyper hemochromatosis Father Cerebrovascular accident, Onset Age: 79 Family history of chronic obstructive pulmonary disease, Onset Age: 79 Mother Family history of pancreatic cancer, Onset Age: 74 Social History Social History Social History: Surrogate medical decision maker: Colton Stringer, spouse. Code status: Full code. Smoking packs per day: 1 Smoking cigarettes per day: 20.0 Years smoked: 20 Smoking pack-years: 20.00 Smoking status: Former smoker Alcohol intake: current Drinks per week: 5 Substance use: never Substance use type: does not use Do You Feel Safe in your Home?: Yes Lack of Transportation: No Lack of Food: Never True Current Housing: I Have Housing Concerned About Future Housing: No Difficulty Paying Gas/Electric Bills: No Difficulty Paying for Meds: No Currently Unemployed: No Education: High School Diploma/GED Difficulty w/ Childcare or Family Care: No Living arrangements: with family Additional living arrangements comments: Lives with spouse in [place]. Spiritual care concerns: No Exam 2 Narrative: APPEARANCE: Well appearing, no pain, no distress, well-nourished. HEAD: normocephalic, atraumatic. EYES: PERRLA/EOMI, conjunctivae clear. NOSE: Normal no drainage EARS:TMS clear with good light reflex. THROAT: Pharynx clear, no exudate. NECK: Supple. No adenopathy, no masses. RESPIRATORY: Wheezing in lower lungs bilaterally CARDIOVASCULAR: Regular rate and rhythm without murmurs rubs or gallops. ABDOMINAL: Soft, nontender, nondistended, normal bowel sounds MUSCULOSKELETAL: Moves all extremities. Strength/ROM intact, No edema, No calf tenderness. NEURO: Alert. Cranial nerves II through XII intact. Good gait. Good coordination SKIN: Warm, dry. Normal Color Course Vital Signs Vital signs: Vital Signs Temperature 99.4 F 06/23/24 20:07 Pulse Rate 127 H 06/23/24 20:07 Respiratory Rate 24 H 06/23/24 20:07 Blood Pressure 121/63 06/23/24 20:07 Pulse Oximetry 90 06/23/24 20:07 Oxygen Delivery Room Air 06/23/24 20:07 Temperature 98.1 F 06/24/24 00:15 Pulse Rate 89 06/24/24 07:55 Respiratory Rate 18 06/24/24 07:55 Blood Pressure 114/64 06/24/24 06:09 Pulse Oximetry 97 06/24/24 07:45 Oxygen Delivery Nasal Cannula 06/24/24 07:45 Oxygen Flow Rate 2 06/24/24 07:45 Medical Decision Making MDM Narrative Medical decision making narrative: 68-year-old female presented emergency department for evaluation for worsening shortness of breath. Patient's heart rate did improve with rehydration. Patient's oxygen was stable on her 2 L. Patient was afebrile but does have a white blood cell count of 19.4 with a hemoglobin of 14.1. No acute abnormalities on the CMP patient was negative for influenza RSV and for COVID, chest x-ray was concerning for right-sided pulmonary nodule, CT was ordered for the or evaluate this and showed a spicule nodule along with multifocal pneumonia. Patient states she is aware of the nodule and this was biopsied by her lockstitch sleeve setter. Patient was started on antibiotics and and admitted to the hospitalist for multifocal pneumonia. Patient family updated results of the workup and plan for admission. Patient was stable at time of admission. Differential Diagnosis Differential Diagnosis: Influenza, RSV, COVID, pneumonia Medical Records Medical records reviewed: Yes I reviewed the external patient's medical records. Vital Signs Vital Signs: Vital Signs Temperature 99.4 F 06/23/24 20:07 Pulse Rate 127 H 06/23/24 20:07 Respiratory Rate 24 H 06/23/24 20:07 Blood Pressure 121/63 06/23/24 20:07 Pulse Oximetry 90 06/23/24 20:07 Oxygen Delivery Room Air 06/23/24 20:07 Temperature 98.1 F 06/24/24 00:15 Pulse Rate 89 06/24/24 07:55 Respiratory Rate 18 06/24/24 07:55 Blood Pressure 114/64 06/24/24 06:09 Pulse Oximetry 97 06/24/24 07:45 Oxygen Delivery Nasal Cannula 06/24/24 07:45 Oxygen Flow Rate 2 06/24/24 07:45 Lab Data Lab results reviewed: Yes I reviewed the patient's lab results. 06/23/24 21:45 06/23/24 21:45 Labs: Lab Results 06/23/24 Range/Units 21:45 WBC 19.4 H (4.5-10.0) K/mm3 RBC 4.49 (4.2-5.4) M/mm3 Hgb 14.1 (12.0-15.0) g/dL Hct 41.5 (37.0-47.0) % MCV 92.4 (80-100) fl MCH 31.4 (26-34) pg MCHC 34.0 (32-36) g/dl RDW 11.7 (11.5-14.5) % Plt Count 254 (150-375) k/mm3 MPV 10.1 (7.4-10.4) fl Immature Gran % (Auto) 0.6 H (0-0.5) % Neut % (Auto) 84.4 H (45.5-73.1) % Lymph % (Auto) 4.5 L (18.3-44.2) % [place] % (Auto) 10.0 H (2.6-8.5) % Eos % (Auto) 0.3 (0-4.4) % Baso % (Auto) 0.2 (0.2-1.2) % Lymph # (Auto) 0.88 L (0.9-3.2) K/mm3 [place] # (Auto) 1.9 H (0.1-0.6) K/mm3 Eos # (Auto) 0.1 (0-0.3) K/mm3 Baso # (Auto) 0.0 (0.0-0.1) K/mm3 Abs Immat Gran (auto) 0.11 H (0.00-0.031) K/mm3 Absolute Neuts (auto) 16.4 H (1.3-6.7) K/mm3 Absolute Nucleated RBC 0.000 (0.0-0.012) K/mm3 Nucleated RBC % 0.0 (0.0-0.2) % Sodium 133 L (137-145) mmol/L Potassium 3.7 (3.4-5.0) mmol/L Chloride 101 (98-107) mmol/L Carbon Dioxide 26 (22-30) mmol/L Anion Gap 6 (4-12) mmol/L BUN 16 (7-17) mg/dL Creatinine 0.66 L (0.7-1.0) mg/dL Estim Creat Clear Calc 50 ml/min Estimated GFR > 60 (59 - ) Glucose 134 H (65-110) mg/dL Calcium 8.6 (8.4-10.2) mg/dL Total Bilirubin 0.7 (0.2-1.3) mg/dL AST 20 (14-36) U/L ALT 22 (6-35) U/L Alkaline Phosphatase 103 (38-126) U/L Total Protein 7.0 (6.3-8.2) g/dL Albumin 3.7 (3.5-5.1) g/dL Influenza A (RT-PCR) Negative (Negative) Influenza B (RT-PCR) Negative (Negative) RSV (RT-PCR) Negative (Negative) SARS-CoV-2 RNA (RT-PCR) Negative (Negative) Imaging Data Radiologist's impression: Overnight read CT chest with contrast Impression: Scattered bilateral airspace opacities are concerning for multifocal pneumonia. There is a spiculated 1.4 cm right upper lobe pulmonary nodule. Recommend further evaluation with PET/CT. Underlying emphysema is noted. Heart size is normal within limits. No fracture. Small hiatal hernia. Discharge Plan Discharge Clinical Impression: Multifocal pneumonia Patient Disposition: Still a Patient Condition: Serious
[2024-06-23 21:52] LABS: Basophils Percent Auto 0.2 % (0.2-1.2); Eosinophils Absolute Auto 0.1 K/mm3 (0-0.3); Eosinophils Percent Auto 0.3 % (0-4.4); Hematocrit 41.5 % (37.0-47.0); Hemoglobin 14.1 g/dL (12.0-15.0); Immature Granulocyte Absolute 0.11 K/mm3 (0.00-0.031); Immature Granulocyte Percent A 0.6 % (0-0.5); Lymphocytes Absolute Auto 0.88 K/mm3 (0.9-3.2); Lymphocytes Percent Auto 4.5 % (18.3-44.2); Mean Corpuscular Hemoglobin 31.4 pg (26-34); Mean Corpuscular Volume 92.4 fl (80-100); Mean Platelet Volume 10.1 fl (7.4-10.4); Monocytes Absolute Auto 1.9 K/mm3 (0.1-0.6); Neutrophils Absolute Auto 16.4 K/mm3 (1.3-6.7); Neutrophils Percent Auto 84.4 % (45.5-73.1); Platelet Count Result 254 k/mm3 (150-375); Red Blood Count 4.49 M/mm3 (4.2-5.4); Red Cell Distribution Width 11.7 % (11.5-14.5); White Blood Count 19.4 K/mm3 (4.5-10.0)
[2024-06-23] MEDS: SODIUM CHLORIDE 0.9% IV 1,000 ML 999 ML IV CONT (21:55)
[2024-06-23 22:04] LABS: Alanine Aminotransferase 22 U/L (6-35); Albumin Level 3.7 g/dL (3.5-5.1); Alkaline Phosphatase 103 U/L (38-126); Anion Gap 6 mmol/L (4-12); Aspartate Amino Transferase 20 U/L (14-36); Bilirubin,Total 0.7 mg/dL (0.2-1.3); Blood Urea Nitrogen 16 mg/dL (7-17); Calcium 8.6 mg/dL (8.4-10.2); Carbon Dioxide 26 mmol/L (22-30); Chloride 101 mmol/L (98-107); Estimated CRCL calculation 50 ml/min; Estimated Glomerular Filt Rate > 60; Glucose 134 mg/dL (65-110); Potassium 3.7 mmol/L (3.4-5.0); Sodium 133 mmol/L (137-145)
[2024-06-23 22:29] LABS: Influenza A QL RT-PCR Negative (Negative); Influenza B QL RT-PCR Negative (Negative); RSV RNA, RT-PCR Negative (Negative); SARS-CoV-2 RNA PCR Negative (Negative)
[2024-06-23] MEDS: ALBUTEROL SULFATE NEB 2.5 MG/3 ML INH 5 MG INHALATION (23:10)
[2024-06-24] VITALS (24 sets, daily range): BP systolic 102–129; BP diastolic 53–74; PULSE 78–110; RESP 13–83; TEMP 36.7–37.1; O2SAT 92–100; BMI 22.6
[2024-06-24] MEDS: AZITHROMYCIN 500 MG/NS 250 ML 500 MG/250 ML BAG 250 MG IVPB (04:19)
[2024-06-24] MEDS: SODIUM CHLORIDE 0.9% IV 1,000 ML 999 ML IV CONT (06:08)
[2024-06-24] MEDS: IPRATROPIUM BR 0.02% INH SOLN 0.5 MG/2.5 ML VIAL INHALATION (07:45)
[2024-06-24] MEDS: ALBUTEROL SULFATE NEB 2.5 MG/3 ML INH INHALATION (07:45)
--- NOTE | 2024-06-24 08:42 | P.HP_ITS ---
H&P: HPI History of Present Illness Date/Time: 06/24/24 08:42 Chief Complaint: shortness of breath Narrative: 68 year old female with past medical history of asthma presents to the hospital for shortness of breath. She states that the shortness of breath started on Tuesday with an associated productive cough of green phlegm. She then started having increased dyspnea with exertion. She denies any chest pain or palpitations. She has been using her inhalers at home and nebulizers several times a day without relief. She notes occasional wheezing. She denies fevers but endorses night sweats, sinus congestion and headaches. She has not been around any sick contacts. At time of assessment, patient states that her breathing has some what improved. She remains on 2L NC. She continues to endorse occasional wheezing. She denies chest pain, palpitations, nausea/vomiting and abdominal pain. ED workup: Per chart review patient had an SpO2 80% upon check in to the ED, placed on 2L NC and oxygen saturations remain stable. CBC with WBC 19.4, H/H 14.1/41.5, and PLT 254. CMP with Na 133, K 3.7, BUN/Cr 16/0.66 with GFR > 60. Glucose 134. LFTs WNL. Viral panel negative for flu/covid/rsv. Chest XR: Bibasilar opacification more on the left side suggestive of pneumonia and highly suggestive opacity in the right upper lobe with destructive changes in the adjacent rib. Chest CT: Review of Systems Review of Systems: All systems reviewed & are unremarkable except as noted in HPI and below PMFSH Past Medical History Medical History Pulmonary nodule Biopsied in August 2021-benign. Asthma Surgical History Surgical History History of lung biopsy History of tubal ligation History of appendectomy History of hysterectomy History of section Family History Family History Sibling Family history of lung cancer Father Family history of chronic obstructive pulmonary disease, Onset Age: 79 Cerebrovascular accident, Onset Age: 79 Mother Family history of pancreatic cancer, Onset Age: 74 Other Patient's sister is in good health Social History Social History (Updated 06/24/24 @ 14:53 by Lisseth Islas PA-C) Social History: Lives at home with . No pets. Surrogate medical decision maker: Colton Stringer, spouse. Code status: Full code. Smoking packs per day: 0.5 Smoking cigarettes per day: 10.0 Years smoked: 20 Smoking pack-years: 10.00 Smoking status: Former smoker Tobacco type: cigarettes Second hand tobacco smoke exposure: Yes Alcohol intake: current Alcohol use details: occasional Substance use: never Substance use type: does not use Do You Feel Safe in your Home?: Yes Lack of Transportation: No Lack of Food: Never True Current Housing: I Have Housing Concerned About Future Housing: No Difficulty Paying Gas/Electric Bills: No Difficulty Paying for Meds: No Currently Unemployed: No Education: High School Diploma/GED Difficulty w/ Childcare or Family Care: No Living arrangements: with family Additional living arrangements comments: Lives with spouse in [place]. Spiritual care concerns: No Meds Home Medications and Allergies Home Medications ?Medication ?Instructions ?Recorded ?Confirmed ?Type cholecalciferol (vitamin D3) 25 1,000 unit PO DAILY 05/04/19 06/24/24 History mcg (1,000 unit) capsule inhalational spacing device #1 ea 11/13/19 06/24/24 Rx (Aerochamber MV spacer) zinc 50 mg tablet 50 mg PO DAILY 12/11/21 06/24/24 History ascorbic acid (vitamin C) 500 mg 500 mg PO DAILY 06/20/23 06/24/24 History tablet (Vitamin C) cetirizine 10 mg tablet (Zyrtec) 10 mg PO QAM 06/20/23 06/24/24 History albuterol sulfate 2.5 mg/3 mL 2.5 mg (3 mL) inhalation Q6H PRN 12/02/23 06/24/24 Rx (0.083 %) solution for nebulization shortness of breath or wheezing #360 mL fluticasone fur. 200 mcg-umeclid 1 inh inhalation Q24H #3 ea 02/14/24 06/24/24 Rx 62.5 mcg-vilant 25 mcg inhalat.powder (Trelegy Ellipta) ipratropium bromide 0.02 % 3 ml inhalation BID PRN shortness 03/15/24 06/24/24 Rx solution for inhalation of breath or wheezing #300 mL albuterol sulfate 90 mcg/actuation 1 - 2 puff inhalation Q4-6H PRN 05/21/24 06/24/24 Rx aerosol inhaler shortness of breath or wheezing #8.5 grams fluticasone fur. 200 mcg-umeclid #2 Samples 06/11/24 06/24/24 Sample 62.5 mcg-vilant 25 mcg inhalat.powder (Trelegy Ellipta) Allergies Allergy/AdvReac Type Severity Reaction Status Date / Time meperidine AdvReac Mild Nausea Verified 06/23/24 20:12 Vital Signs Vital Signs - 24 hr 06/23/24 20:07 06/23/24 20:14 06/23/24 21:26 Temperature 99.4 F Pulse Rate 127 H Respiratory Rate 24 H Blood Pressure 121/63 Pulse Oximetry 90 95 94 Oxygen Delivery Room Air Nasal Cannula Nasal Cannula Oxygen Flow Rate 2 2 06/23/24 21:28 06/23/24 21:45 06/23/24 22:30 Temperature Pulse Rate 120 H 113 H 106 H Respiratory Rate 19 28 H Blood Pressure 122/66 111/51 L Pulse Oximetry 96 98 Oxygen Delivery Oxygen Flow Rate 06/23/24 23:10 06/23/24 23:27 06/24/24 00:15 Temperature 98.1 F Pulse Rate 109 H 107 H 110 H Respiratory Rate 20 20 13 Blood Pressure 129/63 Pulse Oximetry 100 Oxygen Delivery Oxygen Flow Rate 06/24/24 04:20 06/24/24 06:09 06/24/24 07:45 Temperature Pulse Rate 78 86 88 Respiratory Rate 15 16 18 Blood Pressure 108/74 114/64 Pulse Oximetry 98 92 97 Oxygen Delivery Nasal Cannula Oxygen Flow Rate 2 06/24/24 07:45 06/24/24 07:55 Temperature Pulse Rate 88 89 Respiratory Rate 18 18 Blood Pressure Pulse Oximetry Oxygen Delivery Oxygen Flow Rate Exam Narrative: AF HR 88 RR 18 Spo2 98 2L (baseline RA) BP 113/69 General: female in no acute respiratory distress who is nontoxic appearing, sitting on the side of the bed HEENT: Normocephalic. Atraumatic. Extraocular movement intact. Sclera clear and anicteric.No facial asymmetry. Neck: Neck was supple. No dominant adenopathy, thyromegaly or masses. Chest: Lungs are diminished in the uppers with coarseness to the bases on auscultation bilaterally. Slight expiratory wheeze. CV: Heart was regular rate and rhythm. S1-S2. No murmurs, gallops, or rubs. Abd: Abdomen was soft. Nontender. Nondistended. Positive bowel sounds. No organomegaly or masses. Ext: No clubbing, cyanosis, or edema. 2+ DP pulses bilaterally. Neuro: Patient is alert and oriented x4. Strength is 5/5 in both upper and lower extremities. Cranial nerves 2-12 are intact. Speech is clear. Psych: Normal mood and affect. Patient is pleasant and cooperative. Skin: Warm and dry. No rashes noted. H&P: Results Labs Labs: Short CBC 06/23/24 Range/Units 21:45 WBC 19.4 H (4.5-10.0) K/mm3 Hgb 14.1 (12.0-15.0) g/dL Hct 41.5 (37.0-47.0) % Plt Count 254 (150-375) k/mm3 BMP 06/23/24 21:45 Sodium 133 L Potassium 3.7 Chloride 101 Carbon Dioxide 26 BUN 16 Creatinine 0.66 L Glucose 134 H Calcium 8.6 Liver Function 06/23/24 Range/Units 21:45 Total Bilirubin 0.7 (0.2-1.3) mg/dL AST 20 (14-36) U/L ALT 22 (6-35) U/L Alkaline Phosphatase 103 (38-126) U/L Albumin 3.7 (3.5-5.1) g/dL Assessment and Plan Assessment and plan (1) Acute respiratory failure with hypoxia: Code(s): J96.01 - Acute respiratory failure with hypoxia Status: Acute Assessment and Plan: Per chart review patient had an SpO2 80% upon check in to the ED, placed on 2L NC and oxygen saturations remain stable. - O2 requirement: 2L NC, baseline room air. Continue to wean as tolerating for SpO2 > 90%. - Suspected cause: pneumonia and cocurrent asthma - CXR: bibasilar opacification more on the left side suggestive of pneumonia and highly suggestive opacity in the right upper lobe with destructive changes in the adjacent rib. - Chest CT: Suspected 10 x 13 mm right upper lobe bronchogenic carcinoma Emphysema Multifocal pulmonary infiltrates suggesting bilateral pneumonia - See plan below (2) Pneumonia: Code(s): J18.9 - Pneumonia, unspecified organism Status: Acute Assessment and Plan: - CXR: bibasilar opacification more on the left side suggestive of pneumonia and highly suggestive opacity in the right upper lobe with destructive changes in the adjacent rib. - Chest CT: Suspected 10 x 13 mm right upper lobe bronchogenic carcinoma Emphysema Multifocal pulmonary infiltrates suggesting bilateral pneumonia - Complicating Factors: asthma - started on CAP tx: azithromycin ceftriaxone on 06/24 - Viral PCR: negative for Flu/COVID/RSV - Blood cultures obtained on 06/23: pending - O2 requirement: 2L NC, baseline room air. Continue to wean as tolerating for SpO2 > 90%. - Monitor vital signs, I&Os, neuro status and patient is a fall risk - Follow WBC, serum electrolytes, temperature curves and cultures (3) Asthma: Qualifiers: Asthma complication type: unspecified Asthma persistence: intermittent Asthma severity: mild Qualified Code(s): J45.20 - Mild intermittent asthma, uncomplicated Code(s): J45.909 - Unspecified asthma, uncomplicated Status: Acute Assessment and Plan: - Oxygen requirement:2L NC, baseline room air. Continue to wean as tolerating for SpO2 > 90%. - Chest XR: bibasilar opacification more on the left side suggestive of pneumonia and highly suggestive opacity in the right upper lobe with destructive changes in the adjacent rib. - Chest CT: Suspected 10 x 13 mm right upper lobe bronchogenic carcinoma Emphysema Multifocal pulmonary infiltrates suggesting bilateral pneumonia - Current treatment: DuoNeb and solumedrol 40 q 8 hr Quality VTE Prophylaxis VTE prophylaxis: pharmacologic ordered Hospitalist [facility] Advance Care Plan I have confirmed that the patient's Advanced Care Plan is present, code status is documented, or surrogate decision maker is listed in patient medical record.: Yes Medication Reconciliation I have utilized all available resources to obtain, update and review the patients current medications (includes all prescriptions, OTC, herbals, cannabis, and nutritional supplements).: Yes
[2024-06-24] MEDS: IPRATROPIUM 0.5 MG/ALBUTEROL SULFATE 2.5 MG AMPUL.NEB 3 ML INHALATION ×2 (13:25→19:38)
[2024-06-24] MEDS: methylPREDNISolone SOD SUCC 40 MG VIAL IV PUSH ×2 (15:16→23:41)
--- NOTE | 2024-06-24 16:58 | ADMGEN ---
This patient, Awa Stringer, was admitted to [facility] Surg Room 317-02. Patient/family oriented to hospital policies and general routines including ID bracelet, bed and alarms, visiting hours, pain management, procedures, bathroom and other care routines, personal items, smoking policy, room service/diet, and visiting hours. Information on how to activate the Rapid Response Team has been discussed. Patient/Family are encouraged to report perceived risks to care and to ask questions if they do not understand what they are told or what they should do.
[2024-06-25] VITALS (17 sets, daily range): BP systolic 110–121; BP diastolic 58–61; PULSE 67–91; RESP 18–20; TEMP 36.4–36.6; O2SAT 94–98
[2024-06-25] MEDS: IPRATROPIUM 0.5 MG/ALBUTEROL SULFATE 2.5 MG AMPUL.NEB 3 ML INHALATION ×4 (02:32→20:53)
[2024-06-25] MEDS: AZITHROMYCIN 500 MG/NS 250 ML 500 MG/250 ML BAG 125 MG IVPB (04:07)
[2024-06-25] MEDS: methylPREDNISolone SOD SUCC 40 MG VIAL IV PUSH ×3 (06:27→22:48)
[2024-06-25 07:39] LABS: Basophils Percent Auto 0.1 % (0.2-1.2); Hemoglobin 11.9 g/dL (12.0-15.0); Immature Granulocyte Absolute 0.04 K/mm3 (0.00-0.031); Immature Granulocyte Percent A 0.4 % (0-0.5); Lymphocytes Absolute Auto 0.56 K/mm3 (0.9-3.2); Lymphocytes Percent Auto 6.2 % (18.3-44.2); Mean Corpuscular HGB Conc 33.1 g/dl (32-36); Mean Corpuscular Hemoglobin 31.4 pg (26-34); Mean Platelet Volume 10.5 fl (7.4-10.4); Monocytes Absolute Auto 0.3 K/mm3 (0.1-0.6); Monocytes Percent Auto 3.3 % (2.6-8.5); Neutrophils Absolute Auto 8.1 K/mm3 (1.3-6.7); Platelet Count Result 216 k/mm3 (150-375); Red Blood Count 3.79 M/mm3 (4.2-5.4); Red Cell Distribution Width 11.9 % (11.5-14.5)
--- NOTE | 2024-06-25 07:47 | PM.IMPN ---
Progress Note: A&P Assessment and Plan (1) Acute respiratory failure with hypoxia: Code(s): J96.01 - Acute respiratory failure with hypoxia Status: Acute Assessment and Plan: Per chart review patient had an SpO2 80% upon check in to the ED, placed on 2L NC and oxygen saturations remain stable. - O2 requirement: 2L NC, baseline room air. Continue to wean as tolerating for SpO2 > 90%. - Suspected cause: pneumonia and cocurrent asthma - CXR: bibasilar opacification more on the left side suggestive of pneumonia and highly suggestive opacity in the right upper lobe with destructive changes in the adjacent rib. - Chest CT: Suspected 10 x 13 mm right upper lobe bronchogenic carcinoma Emphysema Multifocal pulmonary infiltrates suggesting bilateral pneumonia - See plan below (2) Pneumonia: Code(s): J18.9 - Pneumonia, unspecified organism Status: Acute Assessment and Plan: - CXR: bibasilar opacification more on the left side suggestive of pneumonia and highly suggestive opacity in the right upper lobe with destructive changes in the adjacent rib. - Chest CT: Suspected 10 x 13 mm right upper lobe bronchogenic carcinoma Emphysema Multifocal pulmonary infiltrates suggesting bilateral pneumonia - Complicating Factors: asthma - started on CAP tx: azithromycin ceftriaxone on 06/24 - Viral PCR: negative for Flu/COVID/RSV - Blood cultures obtained on 06/23: NGTD - O2 requirement: 2L NC, baseline room air. Continue to wean as tolerating for SpO2 > 90%. - Monitor vital signs, I&Os, neuro status and patient is a fall risk - Follow WBC, serum electrolytes, temperature curves and cultures (3) Asthma: Qualifiers: Asthma complication type: unspecified Asthma persistence: intermittent Asthma severity: mild Qualified Code(s): J45.20 - Mild intermittent asthma, uncomplicated Code(s): J45.909 - Unspecified asthma, uncomplicated Status: Acute Assessment and Plan: - Oxygen requirement:2L NC, baseline room air. Continue to wean as tolerating for SpO2 > 90%. - Chest XR: bibasilar opacification more on the left side suggestive of pneumonia and highly suggestive opacity in the right upper lobe with destructive changes in the adjacent rib. - Chest CT: Suspected 10 x 13 mm right upper lobe bronchogenic carcinoma Emphysema Multifocal pulmonary infiltrates suggesting bilateral pneumonia - Current treatment: DuoNeb and solumedrol 40 q 8 hr 1/13: Wheezing has improved slightly. (4) Mass of upper lobe of right lung: Code(s): R91.8 - Other nonspecific abnormal finding of lung field Status: Acute Assessment and Plan: Patient is aware of the nodule and this has been previously biopsied by her digital marketing coordinator. 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 - Chest XR: bibasilar opacification more on the left side suggestive of pneumonia and highly suggestive opacity in the right upper lobe with destructive changes in the adjacent rib. - Chest CT: Suspected 10 x 13 mm right upper lobe bronchogenic carcinoma Time Spent With Patient Time with patient: 25 - 35 minutes Subjective Date/time seen: 06/25/24 07:47 Interval history: 68 year old female with past medical history of asthma presents to the hospital for shortness of breath. Patient is pleasant sitting up comfortably in bed with family at bedside. She continues to endorse shortness of breath, cough and wheezing but notes that this has improved since admission. She remains on oxygen supplementation, continue to wean as tolerated. She has no other complaints denying chest pain, palpitations, nausea/vomiting and abdominal pain. Review of Systems Review of Systems: All systems reviewed & are unremarkable except as noted in HPI and below Exam Narrative: AF HR 81 RR 20 SpO2 94 2L NC BP 121/58 General: female in no acute respiratory distress who is nontoxic appearing, sitting on the side of the bed HEENT: Normocephalic. Atraumatic. Extraocular movement intact. Sclera clear and anicteric.No facial asymmetry. Chest: Lungs are diminished in the uppers with slight coarseness to the bases on auscultation bilaterally. Slight expiratory wheeze. CV: Heart was regular rate and rhythm. S1-S2. No murmurs, gallops, or rubs. Abd: Abdomen was soft. Nontender. Nondistended. Positive bowel sounds. No organomegaly or masses. Ext: No clubbing, cyanosis, or edema. 2+ DP pulses bilaterally. Neuro: Patient is alert. Speech is clear. Objective Data Vital Signs Vital Signs: Vital Signs - 24 hr 06/24/24 07:55 06/24/24 08:00 06/24/24 09:00 Temperature Pulse Rate 89 92 93 Respiratory Rate 18 20 20 Blood Pressure 106/53 L 116/63 Pulse Oximetry 100 98 Oxygen Delivery Oxygen Flow Rate 06/24/24 10:34 06/24/24 10:45 06/24/24 11:01 Temperature Pulse Rate 90 93 90 Respiratory Rate 18 22 H 22 H Blood Pressure 102/68 Pulse Oximetry 98 97 97 Oxygen Delivery Oxygen Flow Rate 06/24/24 11:30 06/24/24 12:00 06/24/24 12:30 Temperature Pulse Rate 89 84 83 Respiratory Rate 18 20 83 H Blood Pressure 120/64 113/69 113/69 Pulse Oximetry 97 98 98 Oxygen Delivery Oxygen Flow Rate 06/24/24 13:19 06/24/24 13:25 06/24/24 13:35 Temperature Pulse Rate 88 89 88 Respiratory Rate 26 H 18 18 Blood Pressure 120/65 Pulse Oximetry 97 Oxygen Delivery Oxygen Flow Rate 06/24/24 14:30 06/24/24 15:01 06/24/24 16:01 Temperature Pulse Rate 96 94 86 Respiratory Rate 18 18 20 Blood Pressure 123/66 126/62 118/61 Pulse Oximetry 98 100 100 Oxygen Delivery Oxygen Flow Rate 06/24/24 18:13 06/24/24 19:38 06/24/24 19:39 Temperature Pulse Rate 86 80 Respiratory Rate 20 18 Blood Pressure Pulse Oximetry 100 97 Oxygen Delivery Nasal Cannula Nasal Cannula Oxygen Flow Rate 2 2 06/24/24 19:47 06/24/24 21:44 06/25/24 00:00 Temperature 98.8 F Pulse Rate 85 94 67 Respiratory Rate 18 16 Blood Pressure 114/57 L Pulse Oximetry 97 Oxygen Delivery Oxygen Flow Rate 06/25/24 02:33 06/25/24 02:41 06/25/24 04:00 Temperature Pulse Rate 80 86 87 Respiratory Rate 18 18 Blood Pressure Pulse Oximetry Oxygen Delivery Oxygen Flow Rate Intake/Output Intake/Output: Intake & Output 06/22/24 06/23/24 06/24/24 06/25/24 23:59 23:59 23:59 23:59 Intake Total 1000 1500 50 Balance 1000 1500 50 Meds/Results Medications: Active Medications Generic Name Dose Route Start Last Admin Trade Name Freq PRN Reason Stop Dose Admin Albuterol 2.5 mg 06/24/24 14:58 Albuterol Sulfate Neb 2.5 Mg/3 Ml Inh INHALATION Q6H PRN shortness of breath or wheezing Albuterol/Ipratropium 3 ml 06/24/24 14:00 06/25/24 02:32 Ipratropium 0.5 Mg/Albuterol Sulfate 2.5 Mg Ampul.Neb 3 Ml INHALATION 3 ml Q6HRT NICOLE Administration Enoxaparin Sodium 40 mg 06/25/24 09:00 Enoxaparin 40 Mg/0.4 Ml Syringe SUB-Q DAILY NICOLE Fluticasone/Umeclidinium/Vilanterol 1 puff 06/24/24 15:00 Fluticasone/Umeclidin/Vilanter 200-62.5-25 Mcg Ellipta INHALATION Q24H NICOLE Ceftriaxone Sodium 1 gm in 50 mls @ 100 mls/hr 06/25/24 04:00 06/25/24 04:00 Rocephin 1 Gm/Ns 50 Ml IVPB Infused Q24H NICOLE Infusion Azithromycin 500 mg in 250 mls @ 250 mls/hr 06/25/24 05:00 06/25/24 04:07 Zithromax IVPB 125 mls/hr Q24H NICOLE Administration Loratadine 10 mg 06/25/24 09:00 Loratadine 10 Mg Tablet PO QAM NICOLE Methylprednisolone Sodium Succinate 40 mg 06/24/24 15:00 06/25/24 06:27 Methylprednisolone Sod Succ 40 Mg Vial IV PUSH 40 mg Q8H NICOLE Administration Miscellaneous Information 1 each 06/24/24 00:01 06/24/24 15:29 Hold Home Trelegy? Pt On Duoneb Scheduled Treatments XX 07/24/24 00:00 Not Given CLARIFY NICOLE Radiology Results: ITS Impressions Chest X-Ray 06/23/24 21:55 IMPRESSION: Bibasilar opacification more on the left side suggestive of pneumonia. Highly suggestive opacity in the right upper lobe with destructive changes in the adjacent rib. CT evaluation is advised. Chest CT 06/24/24 10:13 IMPRESSION: Suspected 10 x 13 mm right upper lobe bronchogenic carcinoma Emphysema Multifocal pulmonary infiltrates suggesting bilateral pneumonia Labs Labs: Laboratory Results - last 24 hr 06/25/24 07:30 WBC 9.0 RBC 3.79 L Hgb 11.9 L Hct 36.0 L MCV 95.0 MCH 31.4 MCHC 33.1 RDW 11.9 Plt Count 216 MPV 10.5 H Immature Gran % (Auto) 0.4 Neut % (Auto) 90.0 H Lymph % (Auto) 6.2 L [place] % (Auto) 3.3 Eos % (Auto) 0.0 Baso % (Auto) 0.1 L Lymph # (Auto) 0.56 L [place] # (Auto) 0.3 Eos # (Auto) 0.0 Baso # (Auto) 0.0 Abs Immat Gran (auto) 0.04 H Absolute Neuts (auto) 8.1 H Absolute Nucleated RBC 0.000 Nucleated RBC % 0.0 Quality VTE Prophylaxis VTE prophylaxis: pharmacologic ordered
[2024-06-25 07:52] LABS: Alanine Aminotransferase 45 U/L (6-35); Albumin Level 3.2 g/dL (3.5-5.1); Alkaline Phosphatase 102 U/L (38-126); Anion Gap 3 mmol/L (4-12); Aspartate Amino Transferase 53 U/L (14-36); Bilirubin,Total 0.3 mg/dL (0.2-1.3); Blood Urea Nitrogen 11 mg/dL (7-17); Calcium 8.5 mg/dL (8.4-10.2); Carbon Dioxide 30 mmol/L (22-30); Chloride 105 mmol/L (98-107); Estimated CRCL calculation 71 ml/min; Estimated Glomerular Filt Rate > 60; Glucose 153 mg/dL (65-110); Potassium 3.8 mmol/L (3.4-5.0); Sodium 138 mmol/L (137-145)
[2024-06-25] MEDS: guaiFENesin 12 HR 600 MG TABCR PO ×2 (09:14→20:14)
[2024-06-25] MEDS: LORATADINE 10 MG TABLET PO (09:14)
[2024-06-26] VITALS (13 sets, daily range): BP systolic 111–128; BP diastolic 64–74; PULSE 74–91; RESP 16–20; TEMP 36.6–36.8; O2SAT 94–98
[2024-06-26] MEDS: IPRATROPIUM 0.5 MG/ALBUTEROL SULFATE 2.5 MG AMPUL.NEB 3 ML INHALATION ×4 (02:10→20:45)
[2024-06-26] MEDS: AZITHROMYCIN 500 MG/NS 250 ML 500 MG/250 ML BAG 250 MG IVPB (04:38)
[2024-06-26 07:04] LABS: Basophils Percent Auto 0.2 % (0.2-1.2); Hematocrit 36.8 % (37.0-47.0); Hemoglobin 11.8 g/dL (12.0-15.0); Immature Granulocyte Absolute 0.09 K/mm3 (0.00-0.031); Immature Granulocyte Percent A 0.7 % (0-0.5); Lymphocytes Absolute Auto 0.68 K/mm3 (0.9-3.2); Lymphocytes Percent Auto 5.3 % (18.3-44.2); Mean Corpuscular HGB Conc 32.1 g/dl (32-36); Mean Corpuscular Hemoglobin 30.7 pg (26-34); Mean Corpuscular Volume 95.8 fl (80-100); Mean Platelet Volume 10.4 fl (7.4-10.4); Monocytes Absolute Auto 0.7 K/mm3 (0.1-0.6); Monocytes Percent Auto 5.2 % (2.6-8.5); Neutrophils Absolute Auto 11.4 K/mm3 (1.3-6.7); Neutrophils Percent Auto 88.6 % (45.5-73.1); Platelet Count Result 274 k/mm3 (150-375); Red Blood Count 3.84 M/mm3 (4.2-5.4); Red Cell Distribution Width 11.9 % (11.5-14.5); White Blood Count 12.8 K/mm3 (4.5-10.0)
[2024-06-26 07:37] LABS: Alanine Aminotransferase 47 U/L (6-35); Albumin Level 3.2 g/dL (3.5-5.1); Alkaline Phosphatase 101 U/L (38-126); Anion Gap 4 mmol/L (4-12); Aspartate Amino Transferase 29 U/L (14-36); Bilirubin,Total 0.2 mg/dL (0.2-1.3); Blood Urea Nitrogen 16 mg/dL (7-17); Calcium 8.7 mg/dL (8.4-10.2); Carbon Dioxide 30 mmol/L (22-30); Chloride 105 mmol/L (98-107); Estimated CRCL calculation 59 ml/min; Estimated Glomerular Filt Rate > 60; Glucose 139 mg/dL (65-110); Potassium 3.8 mmol/L (3.4-5.0); Sodium 139 mmol/L (137-145)
[2024-06-26] MEDS: methylPREDNISolone SOD SUCC 40 MG VIAL IV PUSH ×2 (08:13→17:54)
[2024-06-26] MEDS: guaiFENesin 12 HR 600 MG TABCR PO ×2 (08:14→20:32)
[2024-06-26] MEDS: LORATADINE 10 MG TABLET PO (08:14)
--- NOTE | 2024-06-26 08:41 | PM.IMPN ---
Progress Note: A&P Assessment and Plan (1) Acute respiratory failure with hypoxia: Code(s): J96.01 - Acute respiratory failure with hypoxia Status: Acute Assessment and Plan: Per chart review patient had an SpO2 80% upon check in to the ED, placed on 2L NC and oxygen saturations remain stable. - O2 requirement: 0.5L NC, baseline room air. Continue to wean as tolerating for SpO2 > 90%. - Suspected cause: pneumonia and cocurrent asthma - CXR: bibasilar opacification more on the left side suggestive of pneumonia and highly suggestive opacity in the right upper lobe with destructive changes in the adjacent rib. - Chest CT: Suspected 10 x 13 mm right upper lobe bronchogenic carcinoma Emphysema Multifocal pulmonary infiltrates suggesting bilateral pneumonia - See plan below (2) Pneumonia: Code(s): J18.9 - Pneumonia, unspecified organism Status: Acute Assessment and Plan: - CXR: bibasilar opacification more on the left side suggestive of pneumonia and highly suggestive opacity in the right upper lobe with destructive changes in the adjacent rib. - Chest CT: Suspected 10 x 13 mm right upper lobe bronchogenic carcinoma Emphysema Multifocal pulmonary infiltrates suggesting bilateral pneumonia - Complicating Factors: asthma - started on CAP tx: azithromycin ceftriaxone on 06/24 - Viral PCR: negative for Flu/COVID/RSV - Blood cultures obtained on 06/23: NGTD - O2 requirement: 0.5L NC, baseline room air. Continue to wean as tolerating for SpO2 > 90%. - Monitor vital signs, I&Os, neuro status and patient is a fall risk - Follow WBC, serum electrolytes, temperature curves and cultures (3) Asthma: Qualifiers: Asthma complication type: unspecified Asthma persistence: intermittent Asthma severity: mild Qualified Code(s): J45.20 - Mild intermittent asthma, uncomplicated Code(s): J45.909 - Unspecified asthma, uncomplicated Status: Acute Assessment and Plan: - Oxygen requirement:2L NC, baseline room air. Continue to wean as tolerating for SpO2 > 90%. - Chest XR: bibasilar opacification more on the left side suggestive of pneumonia and highly suggestive opacity in the right upper lobe with destructive changes in the adjacent rib. - Chest CT: Suspected 10 x 13 mm right upper lobe bronchogenic carcinoma Emphysema Multifocal pulmonary infiltrates suggesting bilateral pneumonia - Current treatment: DuoNeb and solumedrol 40 q 8 hr 06/26: Continue to endorse wheezing, worse with ambulation. Wheezing unchanged on exam. (4) Mass of upper lobe of right lung: Code(s): R91.8 - Other nonspecific abnormal finding of lung field Status: Acute Assessment and Plan: Patient is aware of the nodule and this has been previously biopsied by her scrap shear operator. 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 - Chest XR: bibasilar opacification more on the left side suggestive of pneumonia and highly suggestive opacity in the right upper lobe with destructive changes in the adjacent rib. - Chest CT: Suspected 10 x 13 mm right upper lobe bronchogenic carcinoma - Continue outpatient follow up (5) Thrush, oral: Code(s): B37.0 - Candidal stomatitis Status: Acute Assessment and Plan: Mild thrush to the oral region likely from prolonged inhaler use. - Fluconazole 200 mg x1, then 100 mg daily - Monitor Time Spent With Patient Time with patient: 25 - 35 minutes Subjective Date/time seen: 06/26/24 08:41 Interval history: 68 year old female with past medical history of asthma presents to the hospital for shortness of breath. patient is pleasant sitting up comfortably in bed. She continues to endorse shortness of breath with wheezing that is worse with ambulation. She also notes that her cough has become more dry today. she remains 0.5 L nasal cannula for oxygen supplementation, with nurse who plans to continue weaning as tolerated. She has no other complaints denying chest pain, palpitations, nausea/ vomiting, and abdominal pain Review of Systems Review of Systems: All systems reviewed & are unremarkable except as noted in HPI and below Exam Narrative: AF HR 81 RR 20 Spo2 95 0.5L NC BP 111/64 General: female in no acute respiratory distress who is nontoxic appearing, sitting on the side of the bed HEENT: Normocephalic. Atraumatic. Extraocular movement intact. Sclera clear and anicteric.No facial asymmetry. Chest: Lungs are diminished on auscultation bilaterally. Expiratory wheeze. CV: Heart was regular rate and rhythm. S1-S2. No murmurs, gallops, or rubs. Abd: Abdomen was soft. Nontender. Nondistended. Positive bowel sounds. No organomegaly or masses. Ext: No clubbing, cyanosis, or edema. 2+ DP pulses bilaterally. Neuro: Patient is alert. Speech is clear. Objective Data Vital Signs Vital Signs: Vital Signs - 24 hr 06/25/24 08:52 06/25/24 08:52 06/25/24 09:03 Temperature Pulse Rate 77 80 Respiratory Rate 20 20 Blood Pressure Pulse Oximetry 97 Oxygen Delivery Nasal Cannula Oxygen Flow Rate 2 Fraction of Inspired Oxygen 06/25/24 12:00 06/25/24 14:00 06/25/24 14:23 Temperature 97.5 F L Pulse Rate 88 91 Respiratory Rate 18 Blood Pressure 121/58 L Pulse Oximetry 98 94 Oxygen Delivery Nasal Cannula Oxygen Flow Rate 2 Fraction of Inspired Oxygen 06/25/24 14:23 06/25/24 14:30 06/25/24 16:00 Temperature Pulse Rate 82 81 85 Respiratory Rate 20 20 Blood Pressure Pulse Oximetry Oxygen Delivery Oxygen Flow Rate Fraction of Inspired Oxygen 06/25/24 19:51 06/25/24 20:00 06/25/24 20:27 Temperature 97.8 F Pulse Rate 88 87 Respiratory Rate 18 Blood Pressure 110/61 Pulse Oximetry 94 97 Oxygen Delivery Nasal Cannula Oxygen Flow Rate 1 Fraction of Inspired Oxygen 06/25/24 20:53 06/25/24 20:53 06/25/24 21:03 Temperature Pulse Rate 84 88 Respiratory Rate 20 20 Blood Pressure Pulse Oximetry 95 Oxygen Delivery Nasal Cannula Oxygen Flow Rate 1 Fraction of Inspired Oxygen 06/26/24 00:00 06/26/24 02:10 06/26/24 02:19 Temperature Pulse Rate 74 80 83 Respiratory Rate 18 18 Blood Pressure Pulse Oximetry Oxygen Delivery Oxygen Flow Rate Fraction of Inspired Oxygen 06/26/24 03:23 06/26/24 07:40 06/26/24 07:40 Temperature 97.8 F Pulse Rate 81 78 Respiratory Rate 20 20 Blood Pressure 111/64 Pulse Oximetry 98 98 Oxygen Delivery Nasal Cannula Oxygen Flow Rate 2 Fraction of Inspired Oxygen Intake/Output Intake/Output: Intake & Output 06/23/24 06/24/24 06/25/24 06/26/24 23:59 23:59 23:59 23:59 Intake Total 1000 1500 1140 690 Balance 1000 1500 1140 690 Meds/Results Medications: Active Medications Generic Name Dose Route Start Last Admin Trade Name Freq PRN Reason Stop Dose Admin Albuterol 2.5 mg 06/24/24 14:58 Albuterol Sulfate Neb 2.5 Mg/3 Ml Inh INHALATION Q6H PRN shortness of breath or wheezing Albuterol/Ipratropium 3 ml 06/24/24 14:00 06/26/24 07:40 Ipratropium 0.5 Mg/Albuterol Sulfate 2.5 Mg Ampul.Neb 3 Ml INHALATION 3 ml Q6HRT NICOLE Administration Enoxaparin Sodium 40 mg 06/25/24 09:00 06/26/24 08:15 Enoxaparin 40 Mg/0.4 Ml Syringe SUB-Q Not Given DAILY NICOLE Guaifenesin 600 mg 06/25/24 09:00 06/26/24 08:14 Guaifenesin 12 Hr 600 Mg Tabcr PO 600 mg Q12HR NICOLE Administration Ceftriaxone Sodium 1 gm in 50 mls @ 100 mls/hr 06/25/24 04:00 06/26/24 05:08 Rocephin 1 Gm/Ns 50 Ml IVPB Infused Q24H NICOLE Infusion Azithromycin 500 mg in 250 mls @ 250 mls/hr 06/25/24 05:00 06/26/24 05:38 Zithromax IVPB Infused Q24H NICOLE Infusion Loratadine 10 mg 06/25/24 09:00 06/26/24 08:14 Loratadine 10 Mg Tablet PO 10 mg QAM NICOLE Administration Methylprednisolone Sodium Succinate 40 mg 06/24/24 15:00 06/26/24 08:13 Methylprednisolone Sod Succ 40 Mg Vial IV PUSH 40 mg Q8H NICOLE Administration Radiology Results: ITS Impressions Chest X-Ray 06/23/24 21:55 IMPRESSION: Bibasilar opacification more on the left side suggestive of pneumonia. Highly suggestive opacity in the right upper lobe with destructive changes in the adjacent rib. CT evaluation is advised. Chest CT 06/24/24 10:13 IMPRESSION: Suspected 10 x 13 mm right upper lobe bronchogenic carcinoma Emphysema Multifocal pulmonary infiltrates suggesting bilateral pneumonia Labs Labs: Laboratory Results - last 24 hr 06/26/24 06:53 WBC 12.8 H RBC 3.84 L Hgb 11.8 L Hct 36.8 L MCV 95.8 MCH 30.7 MCHC 32.1 RDW 11.9 Plt Count 274 MPV 10.4 Immature Gran % (Auto) 0.7 H Neut % (Auto) 88.6 H Lymph % (Auto) 5.3 L [place] % (Auto) 5.2 Eos % (Auto) 0.0 Baso % (Auto) 0.2 Lymph # (Auto) 0.68 L [place] # (Auto) 0.7 H Eos # (Auto) 0.0 Baso # (Auto) 0.0 Abs Immat Gran (auto) 0.09 H Absolute Neuts (auto) 11.4 H Absolute Nucleated RBC 0.000 Nucleated RBC % 0.0 Sodium 139 Potassium 3.8 Chloride 105 Carbon Dioxide 30 Anion Gap 4 BUN 16 Creatinine 0.58 L Estim Creat Clear Calc 59 Estimated GFR > 60 Glucose 139 H Calcium 8.7 Total Bilirubin 0.2 AST 29 ALT 47 H Alkaline Phosphatase 101 Total Protein 6.0 L Albumin 3.2 L Quality VTE Prophylaxis VTE prophylaxis: pharmacologic ordered
[2024-06-26] MEDS: FLUCONAZOLE 100 MG TABLET 200 MG PO (10:05)
[2024-06-27] VITALS (13 sets, daily range): BP systolic 124–139; BP diastolic 63–77; PULSE 70–97; RESP 14–20; TEMP 36.1–36.9; O2SAT 93–96
[2024-06-27] MEDS: methylPREDNISolone SOD SUCC 40 MG VIAL IV PUSH ×3 (01:40→17:26)
[2024-06-27] MEDS: IPRATROPIUM 0.5 MG/ALBUTEROL SULFATE 2.5 MG AMPUL.NEB 3 ML INHALATION ×4 (02:38→21:15)
[2024-06-27] MEDS: AZITHROMYCIN 500 MG/NS 250 ML 500 MG/250 ML BAG 250 MG IVPB (05:38)
[2024-06-27 06:59] LABS: Basophils Percent Auto 0.2 % (0.2-1.2); Hematocrit 35.4 % (37.0-47.0); Hemoglobin 11.5 g/dL (12.0-15.0); Immature Granulocyte Absolute 0.14 K/mm3 (0.00-0.031); Immature Granulocyte Percent A 1.2 % (0-0.5); Lymphocytes Absolute Auto 0.64 K/mm3 (0.9-3.2); Lymphocytes Percent Auto 5.7 % (18.3-44.2); Mean Corpuscular HGB Conc 32.5 g/dl (32-36); Mean Corpuscular Hemoglobin 31.1 pg (26-34); Mean Corpuscular Volume 95.7 fl (80-100); Mean Platelet Volume 10.5 fl (7.4-10.4); Monocytes Absolute Auto 0.5 K/mm3 (0.1-0.6); Monocytes Percent Auto 4.2 % (2.6-8.5); Neutrophils Percent Auto 88.7 % (45.5-73.1); Platelet Count Result 283 k/mm3 (150-375); Red Cell Distribution Width 11.9 % (11.5-14.5); White Blood Count 11.3 K/mm3 (4.5-10.0)
[2024-06-27 07:21] LABS: Alanine Aminotransferase 39 U/L (6-35); Albumin Level 3.1 g/dL (3.5-5.1); Alkaline Phosphatase 92 U/L (38-126); Anion Gap 5 mmol/L (4-12); Aspartate Amino Transferase 24 U/L (14-36); Bilirubin,Total 0.3 mg/dL (0.2-1.3); Blood Urea Nitrogen 17 mg/dL (7-17); Calcium 8.3 mg/dL (8.4-10.2); Carbon Dioxide 33 mmol/L (22-30); Chloride 101 mmol/L (98-107); Estimated CRCL calculation 52 ml/min; Estimated Glomerular Filt Rate > 60; Glucose 150 mg/dL (65-110); Potassium 4.2 mmol/L (3.4-5.0); Sodium 139 mmol/L (137-145)
[2024-06-27] MEDS: FLUCONAZOLE 100 MG TABLET PO (08:21)
[2024-06-27] MEDS: LORATADINE 10 MG TABLET PO (08:21)
[2024-06-27] MEDS: guaiFENesin 12 HR 600 MG TABCR PO ×2 (08:21→20:41)
--- NOTE | 2024-06-27 11:27 | PM.IMPN ---
Progress Note: A&P Assessment and Plan (1) Acute respiratory failure with hypoxia: Code(s): J96.01 - Acute respiratory failure with hypoxia Status: Acute Assessment and Plan: Per chart review patient had an SpO2 80% upon check in to the ED, placed on 2L NC and oxygen saturations remain stable. - O2 requirement:off oxygen, Sa02 95% RA, baseline room air. Continue to wean as tolerating for SpO2 > 90%. - Suspected cause: pneumonia and cocurrent asthma - CXR: bibasilar opacification more on the left side suggestive of pneumonia and highly suggestive opacity in the right upper lobe with destructive changes in the adjacent rib. - Chest CT: Suspected 10 x 13 mm right upper lobe bronchogenic carcinoma Emphysema Multifocal pulmonary infiltrates suggesting bilateral pneumonia - See plan below (2) Pneumonia: Code(s): J18.9 - Pneumonia, unspecified organism Status: Acute Assessment and Plan: - CXR: bibasilar opacification more on the left side suggestive of pneumonia and highly suggestive opacity in the right upper lobe with destructive changes in the adjacent rib. - Chest CT: Suspected 10 x 13 mm right upper lobe bronchogenic carcinoma Emphysema Multifocal pulmonary infiltrates suggesting bilateral pneumonia - Complicating Factors: asthma - started on CAP tx: azithromycin ceftriaxone on 06/24 - Viral PCR: negative for Flu/COVID/RSV - Blood cultures obtained on 06/23: NGTD - O2 requirement: off oxygen, Sa02 95% RA, baseline room air. Continue to wean as tolerating for SpO2 > 90%. - Monitor vital signs, I&Os, neuro status and patient is a fall risk - WBC improving 12.8>11.3. - Follow WBC, serum electrolytes, temperature curves and cultures (3) Asthma: Qualifiers: Asthma severity: mild Asthma persistence: intermittent Asthma complication type: unspecified Qualified Code(s): J45.20 - Mild intermittent asthma, uncomplicated Code(s): J45.909 - Unspecified asthma, uncomplicated Status: Acute Assessment and Plan: - Oxygen requirement:2L NC, baseline room air. Continue to wean as tolerating for SpO2 > 90%. - Chest XR: bibasilar opacification more on the left side suggestive of pneumonia and highly suggestive opacity in the right upper lobe with destructive changes in the adjacent rib. - Chest CT: Suspected 10 x 13 mm right upper lobe bronchogenic carcinoma Emphysema Multifocal pulmonary infiltrates suggesting bilateral pneumonia - Current treatment: DuoNeb and solumedrol 40 q 8 hr 06/26: Continue to endorse wheezing, worse with ambulation. Wheezing unchanged on exam. (4) Mass of upper lobe of right lung: Code(s): R91.8 - Other nonspecific abnormal finding of lung field Status: Acute Assessment and Plan: Patient is aware of the nodule and this has been previously biopsied by her [employer]. 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 - Chest XR: bibasilar opacification more on the left side suggestive of pneumonia and highly suggestive opacity in the right upper lobe with destructive changes in the adjacent rib. - Chest CT: Suspected 10 x 13 mm right upper lobe bronchogenic carcinoma - Continue outpatient follow up (5) Thrush, oral: Code(s): B37.0 - Candidal stomatitis Status: Acute Assessment and Plan: Mild thrush to the oral region likely from prolonged inhaler use. - Fluconazole 200 mg x1, then 100 mg daily - Monitor Subjective Date/time seen: 06/27/24 11:27 Interval history: Patient reports not feeling better and getting short of breath at times with coughing. Patient denies chest pain, palpitations, headache, dizziness, nausea, or vomiting. Reports nasal dryness. Review of Systems Review of Systems: All systems reviewed & are unremarkable except as noted in HPI and below Exam Const: General: comfortable and no acute distress Eyes: Sclera: sclerae normal Resp: Auscultation: wheezes expiratory wheezes and diminished lung sounds Cardio: Rate: regular rate Rhythm: regular rhythm GI: GI Palp: Yes Soft to palpation Auscultation: normal bowel sounds Neuro: Speech: normal speech Extrem: General: no pedal edema Psych: Mental Status: mental status grossly normal Affect: normal affect Objective Data Vital Signs Vital Signs: Vital Signs - 24 hr 06/26/24 13:50 06/26/24 13:59 06/26/24 14:00 Temperature 97.8 F Pulse Rate 89 87 87 Respiratory Rate 20 20 16 Blood Pressure 120/64 Pulse Oximetry 97 Oxygen Delivery 06/26/24 20:26 06/26/24 20:45 06/26/24 20:47 Temperature 97.9 F Pulse Rate 86 80 Respiratory Rate 18 20 Blood Pressure 124/74 Pulse Oximetry 94 95 Oxygen Delivery Room Air 06/26/24 20:57 06/27/24 02:38 06/27/24 02:50 Temperature Pulse Rate 79 90 85 Respiratory Rate 20 20 20 Blood Pressure Pulse Oximetry Oxygen Delivery 06/27/24 05:50 06/27/24 07:30 06/27/24 07:30 Temperature 97.2 F L Pulse Rate 97 81 81 Respiratory Rate 17 18 18 Blood Pressure 124/63 Pulse Oximetry 94 93 Oxygen Delivery Room Air 06/27/24 07:40 06/27/24 08:30 Temperature Pulse Rate 83 Respiratory Rate 18 Blood Pressure Pulse Oximetry Oxygen Delivery Room Air Intake/Output Intake/Output: Intake & Output 06/24/24 06/25/24 06/26/24 06/27/24 23:59 23:59 23:59 23:59 Intake Total 1500 1140 1407 1460 Balance 1500 1140 1407 1460 Meds/Results Medications: Active Medications Generic Name Dose Route Start Last Admin Trade Name Freq PRN Reason Stop Dose Admin Albuterol 2.5 mg 06/24/24 14:58 Albuterol Sulfate Neb 2.5 Mg/3 Ml Inh INHALATION Q6H PRN shortness of breath or wheezing Albuterol/Ipratropium 3 ml 06/24/24 14:00 06/27/24 07:30 Ipratropium 0.5 Mg/Albuterol Sulfate 2.5 Mg Ampul.Neb 3 Ml INHALATION 3 ml Q6HRT NICOLE Administration Enoxaparin Sodium 40 mg 06/25/24 09:00 06/27/24 08:21 Enoxaparin 40 Mg/0.4 Ml Syringe SUB-Q Not Given DAILY NICOLE Fluconazole 100 mg 06/27/24 09:00 06/27/24 08:21 Fluconazole 100 Mg Tablet PO 07/02/24 09:00 100 mg QAM NICOLE Administration Guaifenesin 600 mg 06/25/24 09:00 06/27/24 08:21 Guaifenesin 12 Hr 600 Mg Tabcr PO 600 mg Q12HR NICOLE Administration Ceftriaxone Sodium 1 gm in 50 mls @ 100 mls/hr 06/25/24 04:00 06/27/24 05:02 Rocephin 1 Gm/Ns 50 Ml IVPB 100 mls/hr Q24H NICOLE Administration Azithromycin 500 mg in 250 mls @ 250 mls/hr 06/25/24 05:00 06/27/24 05:38 Zithromax IVPB 250 mls/hr Q24H NICOLE Administration Loratadine 10 mg 06/25/24 09:00 06/27/24 08:21 Loratadine 10 Mg Tablet PO 10 mg QAM NICOLE Administration Methylprednisolone Sodium Succinate 40 mg 06/26/24 17:00 06/27/24 08:21 Methylprednisolone Sod Succ 40 Mg Vial IV PUSH 40 mg Q8H NICOLE Administration Radiology Results: ITS Impressions Chest X-Ray 06/23/24 21:55 IMPRESSION: Bibasilar opacification more on the left side suggestive of pneumonia. Highly suggestive opacity in the right upper lobe with destructive changes in the adjacent rib. CT evaluation is advised. Chest CT 06/24/24 10:13 IMPRESSION: Suspected 10 x 13 mm right upper lobe bronchogenic carcinoma Emphysema Multifocal pulmonary infiltrates suggesting bilateral pneumonia Labs Labs: Laboratory Results - last 24 hr 06/27/24 06:31 WBC 11.3 H RBC 3.70 L Hgb 11.5 L Hct 35.4 L MCV 95.7 MCH 31.1 MCHC 32.5 RDW 11.9 Plt Count 283 MPV 10.5 H Immature Gran % (Auto) 1.2 H Neut % (Auto) 88.7 H Lymph % (Auto) 5.7 L [place] % (Auto) 4.2 Eos % (Auto) 0.0 Baso % (Auto) 0.2 Lymph # (Auto) 0.64 L [place] # (Auto) 0.5 Eos # (Auto) 0.0 Baso # (Auto) 0.0 Abs Immat Gran (auto) 0.14 H Absolute Neuts (auto) 10.0 H Absolute Nucleated RBC 0.000 Nucleated RBC % 0.0 Sodium 139 Potassium 4.2 Chloride 101 Carbon Dioxide 33 H Anion Gap 5 BUN 17 Creatinine 0.66 L Estim Creat Clear Calc 52 Estimated GFR > 60 Glucose 150 H Calcium 8.3 L Total Bilirubin 0.3 AST 24 ALT 39 H Alkaline Phosphatase 92 Total Protein 6.0 L Albumin 3.1 L Quality VTE Prophylaxis VTE prophylaxis: pharmacologic ordered
[2024-06-27] MEDS: SALINE 0.65% NAS SOLN 44 ML BTL 1 SPRAY NASAL (20:41)
[2024-06-28] VITALS (13 sets, daily range): BP systolic 112–136; BP diastolic 60–76; PULSE 69–91; RESP 12–20; TEMP 36.2–36.8; O2SAT 94–98
[2024-06-28] MEDS: IPRATROPIUM 0.5 MG/ALBUTEROL SULFATE 2.5 MG AMPUL.NEB 3 ML INHALATION ×4 (02:26→21:59)
[2024-06-28] MEDS: methylPREDNISolone SOD SUCC 40 MG VIAL IV PUSH ×3 (02:59→18:04)
[2024-06-28 06:42] LABS: Basophils Percent Auto 0.3 % (0.2-1.2); Hematocrit 37.1 % (37.0-47.0); Hemoglobin 12.1 g/dL (12.0-15.0); Immature Granulocyte Absolute 0.27 K/mm3 (0.00-0.031); Immature Granulocyte Percent A 2.8 % (0-0.5); Lymphocytes Absolute Auto 0.56 K/mm3 (0.9-3.2); Lymphocytes Percent Auto 5.9 % (18.3-44.2); Mean Corpuscular HGB Conc 32.6 g/dl (32-36); Mean Corpuscular Hemoglobin 31.3 pg (26-34); Mean Corpuscular Volume 95.9 fl (80-100); Mean Platelet Volume 10.3 fl (7.4-10.4); Monocytes Absolute Auto 0.5 K/mm3 (0.1-0.6); Neutrophils Absolute Auto 8.2 K/mm3 (1.3-6.7); Platelet Count Result 296 k/mm3 (150-375); Red Blood Count 3.87 M/mm3 (4.2-5.4); Red Cell Distribution Width 11.9 % (11.5-14.5); White Blood Count 9.6 K/mm3 (4.5-10.0)
[2024-06-28 06:49] LABS: Chloride 100 mmol/L (98-107)
[2024-06-28 06:52] LABS: Alanine Aminotransferase 38 U/L (6-35); Alkaline Phosphatase 85 U/L (38-126); Anion Gap 2 mmol/L (4-12); Aspartate Amino Transferase 23 U/L (14-36); Bilirubin,Total 0.3 mg/dL (0.2-1.3); Blood Urea Nitrogen 16 mg/dL (7-17); Calcium 8.3 mg/dL (8.4-10.2); Carbon Dioxide 33 mmol/L (22-30); Estimated CRCL calculation 49 ml/min; Estimated Glomerular Filt Rate > 60; Glucose 158 mg/dL (65-110); Potassium 4.2 mmol/L (3.4-5.0); Sodium 135 mmol/L (137-145)
[2024-06-28] MEDS: AZITHROMYCIN 250 MG TABLET 500 MG PO (08:40)
[2024-06-28] MEDS: FLUCONAZOLE 100 MG TABLET PO (08:41)
[2024-06-28] MEDS: SALINE 0.65% NAS SOLN 44 ML BTL 1 SPRAY NASAL ×2 (08:41→20:36)
[2024-06-28] MEDS: guaiFENesin 12 HR 600 MG TABCR PO ×2 (08:41→20:35)
[2024-06-28] MEDS: LORATADINE 10 MG TABLET PO (08:41)
--- NOTE | 2024-06-28 12:09 | PM.IMPN ---
Progress Note: A&P Assessment and Plan (1) Acute respiratory failure with hypoxia: Code(s): J96.01 - Acute respiratory failure with hypoxia Status: Acute Assessment and Plan: Per chart review patient had an SpO2 80% upon check in to the ED, placed on 2L NC and oxygen saturations remain stable. - O2 requirement:off oxygen, Sa02 94% RA, baseline room air. Continue to wean as tolerating for SpO2 > 90%. - Suspected cause: pneumonia and cocurrent asthma - CXR: bibasilar opacification more on the left side suggestive of pneumonia and highly suggestive opacity in the right upper lobe with destructive changes in the adjacent rib. - Chest CT: Suspected 10 x 13 mm right upper lobe bronchogenic carcinoma Emphysema Multifocal pulmonary infiltrates suggesting bilateral pneumonia - See plan below (2) Pneumonia: Code(s): J18.9 - Pneumonia, unspecified organism Status: Acute Assessment and Plan: - CXR: bibasilar opacification more on the left side suggestive of pneumonia and highly suggestive opacity in the right upper lobe with destructive changes in the adjacent rib. - Chest CT: Suspected 10 x 13 mm right upper lobe bronchogenic carcinoma Emphysema Multifocal pulmonary infiltrates suggesting bilateral pneumonia - Complicating Factors: asthma - started on CAP tx: azithromycin ceftriaxone on 06/24 - Viral PCR: negative for Flu/COVID/RSV - Blood cultures obtained on 06/23: NGTD - O2 requirement: off oxygen, Sa02 95% RA, baseline room air. Continue to wean as tolerating for SpO2 > 90%. - Monitor vital signs, I&Os, neuro status and patient is a fall risk - WBC improving 12.8>11.3>9.6. - Follow WBC, serum electrolytes, temperature curves and cultures (3) Asthma: Qualifiers: Asthma complication type: unspecified Asthma persistence: intermittent Asthma severity: mild Qualified Code(s): J45.20 - Mild intermittent asthma, uncomplicated Code(s): J45.909 - Unspecified asthma, uncomplicated Status: Acute Assessment and Plan: - Oxygen requirement:2L NC, baseline room air. Continue to wean as tolerating for SpO2 > 90%. - Chest XR: bibasilar opacification more on the left side suggestive of pneumonia and highly suggestive opacity in the right upper lobe with destructive changes in the adjacent rib. - Chest CT: Suspected 10 x 13 mm right upper lobe bronchogenic carcinoma Emphysema Multifocal pulmonary infiltrates suggesting bilateral pneumonia - Current treatment: DuoNeb and solumedrol 40 q 8 hr 06/26: Continue to endorse wheezing, worse with ambulation. Wheezing unchanged on exam. 06/28: Continue wheezing and not feeling better. Pulmonology consulted. (4) Mass of upper lobe of right lung: Code(s): R91.8 - Other nonspecific abnormal finding of lung field Status: Acute Assessment and Plan: Patient is aware of the nodule and this has been previously biopsied by her [employer]. 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 - Chest XR: bibasilar opacification more on the left side suggestive of pneumonia and highly suggestive opacity in the right upper lobe with destructive changes in the adjacent rib. - Chest CT: Suspected 10 x 13 mm right upper lobe bronchogenic carcinoma - Continue outpatient follow up (5) Thrush, oral: Code(s): B37.0 - Candidal stomatitis Status: Acute Assessment and Plan: Mild thrush to the oral region likely from prolonged inhaler use. - Fluconazole 200 mg x1, then 100 mg daily - Monitor Subjective Date/time seen: 06/28/24 12:09 Interval history: Patient reports not feeling better, wheezing, and getting short of breath at times with coughing. Patient denies chest pain, palpitations, headache, dizziness, nausea, or vomiting. Patient reports using her incentive spirometer but not doing as well at times then prior usage. Review of Systems Review of Systems: All systems reviewed & are unremarkable except as noted in HPI and below Exam Const: General: comfortable and no acute distress Resp: Effort & Inspection: normal respiratory effort Auscultation: wheezes expiratory wheezes and diminished lung sounds Other: Patient is able to speak in complete sentences. Cardio: Rate: regular rate Rhythm: regular rhythm GI: GI Palp: Yes Soft to palpation Auscultation: normal bowel sounds Skin: General skin exam: no rashes or lesions noted Neuro: Speech: normal speech Extrem: General: no pedal edema Psych: Mental Status: mental status grossly normal Affect: normal affect Objective Data Vital Signs Vital Signs: Vital Signs - 24 hr 06/27/24 13:30 06/27/24 13:40 06/27/24 15:30 Temperature 98.4 F Pulse Rate 91 90 81 Respiratory Rate 18 18 18 Blood Pressure 139/77 Pulse Oximetry 94 Oxygen Delivery Fraction of Inspired Oxygen 06/27/24 20:00 06/27/24 21:15 06/27/24 21:25 Temperature Pulse Rate 71 70 77 Respiratory Rate 14 18 18 Blood Pressure Pulse Oximetry 96 Oxygen Delivery Room Air Fraction of Inspired Oxygen 24 06/27/24 21:32 06/27/24 21:53 06/28/24 02:29 Temperature 97.0 F L Pulse Rate 70 71 75 Respiratory Rate 18 14 18 Blood Pressure 137/65 Pulse Oximetry 96 96 Oxygen Delivery Room Air Fraction of Inspired Oxygen 06/28/24 02:37 06/28/24 05:44 06/28/24 08:18 Temperature 97.1 F L Pulse Rate 75 72 78 Respiratory Rate 18 12 20 Blood Pressure 112/60 Pulse Oximetry 98 Oxygen Delivery Fraction of Inspired Oxygen 06/28/24 08:20 06/28/24 08:33 Temperature Pulse Rate 80 Respiratory Rate 20 Blood Pressure Pulse Oximetry 94 Oxygen Delivery Room Air Fraction of Inspired Oxygen Intake/Output Intake/Output: Intake & Output 06/25/24 06/26/24 06/27/24 06/28/24 23:59 23:59 23:59 23:59 Intake Total 1140 1407 2325 980 Balance 1140 1407 2325 980 Meds/Results Medications: Active Medications Generic Name Dose Route Start Last Admin Trade Name Freq PRN Reason Stop Dose Admin Albuterol 2.5 mg 06/24/24 14:58 Albuterol Sulfate Neb 2.5 Mg/3 Ml Inh INHALATION Q6H PRN shortness of breath or wheezing Albuterol/Ipratropium 3 ml 06/24/24 14:00 06/28/24 08:16 Ipratropium 0.5 Mg/Albuterol Sulfate 2.5 Mg Ampul.Neb 3 Ml INHALATION 3 ml Q6HRT NICOLE Administration Amoxicillin/Clavulanate Potassium 1 tablet 06/29/24 06:00 Amoxicillin/Clavulanate K 875-125 Mg Tab PO 06/30/24 17:01 BID NICOLE Enoxaparin Sodium 40 mg 06/25/24 09:00 06/28/24 08:41 Enoxaparin 40 Mg/0.4 Ml Syringe SUB-Q Not Given DAILY NICOLE Fluconazole 100 mg 06/27/24 09:00 06/28/24 08:41 Fluconazole 100 Mg Tablet PO 07/02/24 09:00 100 mg QAM NICOLE Administration Guaifenesin 600 mg 06/25/24 09:00 06/28/24 08:41 Guaifenesin 12 Hr 600 Mg Tabcr PO 600 mg Q12HR NICOLE Administration Loratadine 10 mg 06/25/24 09:00 06/28/24 08:41 Loratadine 10 Mg Tablet PO 10 mg QAM NICOLE Administration Methylprednisolone Sodium Succinate 40 mg 06/26/24 17:00 06/28/24 08:40 Methylprednisolone Sod Succ 40 Mg Vial IV PUSH 40 mg Q8H NICOLE Administration Sodium Chloride 1 spray 06/27/24 21:00 06/28/24 08:41 Saline 0.65% Carlos Soln 44 Ml Btl NASAL 1 spray Q12HR NICOLE Administration Radiology Results: ITS Impressions Chest X-Ray 06/23/24 21:55 IMPRESSION: Bibasilar opacification more on the left side suggestive of pneumonia. Highly suggestive opacity in the right upper lobe with destructive changes in the adjacent rib. CT evaluation is advised. Chest CT 06/24/24 10:13 IMPRESSION: Suspected 10 x 13 mm right upper lobe bronchogenic carcinoma Emphysema Multifocal pulmonary infiltrates suggesting bilateral pneumonia Labs Labs: Laboratory Results - last 24 hr 06/28/24 06:15 WBC 9.6 RBC 3.87 L Hgb 12.1 Hct 37.1 MCV 95.9 MCH 31.3 MCHC 32.6 RDW 11.9 Plt Count 296 MPV 10.3 Immature Gran % (Auto) 2.8 H Neut % (Auto) 86.0 H Lymph % (Auto) 5.9 L [place] % (Auto) 5.0 Eos % (Auto) 0.0 Baso % (Auto) 0.3 Lymph # (Auto) 0.56 L [place] # (Auto) 0.5 Eos # (Auto) 0.0 Baso # (Auto) 0.0 Abs Immat Gran (auto) 0.27 H Absolute Neuts (auto) 8.2 H Absolute Nucleated RBC 0.000 Nucleated RBC % 0.0 Sodium 135 L Potassium 4.2 Chloride 100 Carbon Dioxide 33 H Anion Gap 2 L BUN 16 Creatinine 0.71 Estim Creat Clear Calc 49 Estimated GFR > 60 Glucose 158 H Calcium 8.3 L Total Bilirubin 0.3 AST 23 ALT 38 H Alkaline Phosphatase 85 Total Protein 6.0 L Albumin 3.0 L Quality VTE Prophylaxis VTE prophylaxis: pharmacologic ordered
--- NOTE | 2024-06-28 19:07 | PM.CNPUL ---
Assessment and Plan Assessment and plan (1) Multifocal pneumonia: Code(s): J18.9 - Pneumonia, unspecified organism Status: Acute Assessment and Plan: 06/23/[address] : anteromedial right mid lung. There is tree-in-bud infiltrate in the posteromedial right upper lobe and anterolateral right upper lobe and the lingula. Scattered multifocal mild right lower lobe tree-in-bud infiltrate. She had yellow sputum before admission, this has resolved. WBC is lower, was 19 K, now 9 k. She is on oral antibiotics, IV Rocephin and Levaquin stopped, now on Amoxicillin and oral Levaquin. Will change IV solumedrol to oral prednisone. Her saturation is 94%, room air; does not need walk study before discharge. (2) Pulmonary nodule: Code(s): R91.1 - Solitary pulmonary nodule Status: Acute Assessment and Plan: this has been on her chest CT since 2021, was biopsied, benign (3) Asthma-COPD overlap syndrome: Code(s): J44.89 - Other specified chronic obstructive pulmonary disease Status: Acute Assessment and Plan: She has exacerbation of symptoms in the setting of multifocal pneumonia. She has less sputum now, dose not need O2 at rest. She has severe airflow obstruction. She has no elevated eosinophils on any prior testing. Quit smoking cigarettes years ago, smoked at most 1 ppd for 20 years. Plan plan: She may be able to use switch from a triple inhaler to nebulized controller meds with better insurance coverage compared to trying to get a 3 medication inhaler covered. Cost is becoming a more difficult issue all the time. Stop ipratropium in the nebulizer when she is using Breztri or Trelegy at home. Add Cornet valve; she feels secretions trapped in her airway, cannot get these out. 3% saline nebulized. Stop solumedrol, start prednisone taper 50 mg tomorrow am. Oral antibiotics, peak flow monitoring, jose at home, asthma action plan so she has an idea what to do when she deteriorates at home Abreva topically to cold sore on left side of her mouth which is uncomfortable. She would benefit from RSV vaccination. History of Present Illness History of Present Illness Consult date: 06/28/24 Requesting physician: Franci Luna APRN Chief complaint: Multifocal pneumonia, hypoxia Narrative: patient was seen Jun 28, 2024 at 19:15 Room 317 bed 2 NEW: Awa Stringer is a 68 year old woman who has asthma-COPD overlap, admitted June 23 with increasing shortness of breath and low oxygen saturation at home. She is not on home oxygen. On arrival saturation was 80%. She has a history of asthma, and has had asthma exacerbations typically in June. She was using nebulized albuterol but it was not helping over the last day or so. She improved on O2 at 2 L/minute. She is now on room air, feels better however she is still have wheezing, jose with exertion. Her procalcitonin was 0.1 on Jun 21. WBC was high 19.4, came down to 9.6. She is seen in our practice, last visit was 11/22/23; she says that she felt that she was getting sick, called the office to get antibiotics at the end of May; when she took the azithromycin, she felt better, however deteriorated. She had a similar episode last June. She was using Breztri and Trelegy, alternating samples from out office as she cannot qualify for patient assistance, and the cost is too high. She thinks that Trelegy worked better, but these are both expensive. 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 She has albuterol and ipratropium solution every 4 hours in her home nebulizer in the days before admission. She had thick yellow sputum, increased shortness of breath, increased right nasal blockage at night, a problem for years. She does not spend much time in public places, was not around any sick contacts before this happened. She had thrush recently, improved on oral meds, and she had recurrence of cold sore on left side of her mouth with this episode of pneumonia. Vaccination: Had pneumonia vaccination 2 years ago, completed 2 COVID vax, will not take more. Had influenza vaccination. Triggers: for asthma, triggers include mostly fragrance; weather changes, molds, cats, and increased wheezing after getting infections. She has a peak flow meter, has it with her today. does not use it at home. She checks her saturation at home, always in the mid 90% range. DATA * alpha-1 = MM, normal genotype. * 06/24/[address] : There is a 10 x 13 mm mass in the right upper lobe likely due to bronchogenic carcinoma. Bilateral hyperinflation/emphysema. There is focal infiltrate and/atelectasis is noted involving the anteromedial right mid lung. There is tree-in-bud infiltrate in the posteromedial right upper lobe and anterolateral right upper lobe and the lingula. Scattered multifocal mild right lower lobe tree-in-bud infiltrate. Normal heart size. No pericardial or pleural effusion. No thoracic aortic aneurysm or dissection. No hilar or mediastinal mass lesion or lymphadenopathy. Small sliding hiatal hernia Normal morphology of the adrenal glands. Included upper abdominal structures are unremarkable. No suspicious osteolytic or osteoblastic lesions are noted. IMPRESSION: Suspected 10 x 13 mm right upper lobe bronchogenic carcinoma Emphysema Multifocal pulmonary infiltrates suggesting bilateral pneumonia Review of Systems Review of Systems: All systems reviewed & are unremarkable except as noted in HPI and below PMFSH Past Medical History Medical History Pulmonary nodule Biopsied in August 2021-benign. Asthma Surgical History Surgical History History of lung biopsy History of tubal ligation History of appendectomy History of hysterectomy History of section Family History Family History Sibling Family history of lung cancer Father Family history of chronic obstructive pulmonary disease, Onset Age: 79 Cerebrovascular accident, Onset Age: 79 Mother Family history of pancreatic cancer, Onset Age: 74 Other Patient's sister is in good health Social History Social History (Updated 06/24/24 @ 14:53 by Lisseth Islas PA-C) Social History: Lives at home with . No pets. Surrogate medical decision maker: Colton Stringer, spouse. Code status: Full code. Smoking packs per day: 0.5 Smoking cigarettes per day: 10.0 Years smoked: 20 Smoking pack-years: 10.00 Smoking status: Former smoker Tobacco type: cigarettes Second hand tobacco smoke exposure: Yes Alcohol intake: current Alcohol use details: occasional Substance use: never Substance use type: does not use Do You Feel Safe in your Home?: Yes Lack of Transportation: No Lack of Food: Never True Current Housing: I Have Housing Concerned About Future Housing: No Difficulty Paying Gas/Electric Bills: No Difficulty Paying for Meds: No Currently Unemployed: No Education: High School Diploma/GED Difficulty w/ Childcare or Family Care: No Living arrangements: with family Additional living arrangements comments: Lives with spouse in [place]. Spiritual care concerns: No Meds Home Medications and Allergies Home Medications ?Medication ?Instructions ?Recorded ?Confirmed ?Type cholecalciferol (vitamin D3) 25 1,000 unit PO DAILY 05/04/19 06/24/24 History mcg (1,000 unit) capsule inhalational spacing device #1 ea 11/13/19 06/24/24 Rx (Aerochamber MV spacer) zinc 50 mg tablet 50 mg PO DAILY 12/11/21 06/24/24 History ascorbic acid (vitamin C) 500 mg 500 mg PO DAILY 06/20/23 06/24/24 History tablet (Vitamin C) cetirizine 10 mg tablet (Zyrtec) 10 mg PO QAM 06/20/23 06/24/24 History albuterol sulfate 2.5 mg/3 mL 2.5 mg (3 mL) inhalation Q6H PRN 12/02/23 06/24/24 Rx (0.083 %) solution for nebulization shortness of breath or wheezing #360 mL fluticasone fur. 200 mcg-umeclid 1 inh inhalation Q24H #3 ea 02/14/24 06/24/24 Rx 62.5 mcg-vilant 25 mcg inhalat.powder (Trelegy Ellipta) ipratropium bromide 0.02 % 3 ml inhalation BID PRN shortness 03/15/24 06/24/24 Rx solution for inhalation of breath or wheezing #300 mL albuterol sulfate 90 mcg/actuation 1 - 2 puff inhalation Q4-6H PRN 05/21/24 06/24/24 Rx aerosol inhaler shortness of breath or wheezing #8.5 grams fluticasone fur. 200 mcg-umeclid #2 Samples 06/11/24 06/24/24 Sample 62.5 mcg-vilant 25 mcg inhalat.powder (Trelegy Ellipta) Allergies Allergy/AdvReac Type Severity Reaction Status Date / Time meperidine AdvReac Mild Nausea Verified 06/23/24 20:12 Vital Signs Vital Signs - 24 hr 06/27/24 20:00 06/27/24 21:15 06/27/24 21:25 Temperature Pulse Rate 71 70 77 Respiratory Rate 14 18 18 Blood Pressure Pulse Oximetry 96 Oxygen Delivery Room Air Fraction of Inspired Oxygen 24 06/27/24 21:32 06/27/24 21:53 06/28/24 02:29 Temperature 36.1 C L Pulse Rate 70 71 75 Respiratory Rate 18 14 18 Blood Pressure 137/65 Pulse Oximetry 96 96 Oxygen Delivery Room Air Fraction of Inspired Oxygen 06/28/24 02:37 06/28/24 05:44 06/28/24 08:18 Temperature 36.2 C L Pulse Rate 75 72 78 Respiratory Rate 18 12 20 Blood Pressure 112/60 Pulse Oximetry 98 Oxygen Delivery Fraction of Inspired Oxygen 06/28/24 08:20 06/28/24 08:33 06/28/24 13:20 Temperature Pulse Rate 80 80 Respiratory Rate 20 20 Blood Pressure Pulse Oximetry 94 Oxygen Delivery Room Air Fraction of Inspired Oxygen 06/28/24 13:27 06/28/24 14:00 Temperature 36.8 C Pulse Rate 82 91 Respiratory Rate 20 18 Blood Pressure 128/70 Pulse Oximetry 95 Oxygen Delivery Fraction of Inspired Oxygen Exam Narrative: GEN: Alert, oriented, not in distress. on room air, 94% - 95% HEENT: pupils are equal, EOMI, symmetrical face; oral membranes moist, Mallampati II airway; she has cold sore on the left side of her mouth and inside the mouth at left angle of mouth NECK: Trachea is midline CHEST: Equal air entry, symmetric excursion, hyperinflated chest, decreased breath s, slight wheeze on exhalation CV: Regular S1S2 no m/g/r ABD : (+) bowel sounds Extremities : no clubbing, cyanosis, or edema PSYCH: normal thought and speech, gait is normal Results Laboratory Findings 06/28/24 06:15 06/28/24 06:15 Abnormal lab findings: Abnormal Labs 06/23/24 06/25/24 06/26/24 21:45 07:30 06:53 WBC 19.4 H 12.8 H RBC 3.79 L 3.84 L Hgb 11.9 L 11.8 L Hct 36.0 L 36.8 L MPV 10.5 H Immature Gran % (Auto) 0.6 H 0.7 H Neut % (Auto) 84.4 H 90.0 H 88.6 H Lymph % (Auto) 4.5 L 6.2 L 5.3 L [place] % (Auto) 10.0 H Baso % (Auto) 0.1 L Lymph # (Auto) 0.88 L 0.56 L 0.68 L [place] # (Auto) 1.9 H 0.7 H Abs Immat Gran (auto) 0.11 H 0.04 H 0.09 H Absolute Neuts (auto) 16.4 H 8.1 H 11.4 H Sodium 133 L Carbon Dioxide Anion Gap 3 L Creatinine 0.66 L 0.47 L 0.58 L Glucose 134 H 153 H 139 H Calcium AST 53 H ALT 45 H 47 H Total Protein 6.0 L 6.0 L Albumin 3.2 L 3.2 L 06/27/24 06/28/24 06:31 06:15 WBC 11.3 H RBC 3.70 L 3.87 L Hgb 11.5 L Hct 35.4 L MPV 10.5 H Immature Gran % (Auto) 1.2 H 2.8 H Neut % (Auto) 88.7 H 86.0 H Lymph % (Auto) 5.7 L 5.9 L [place] % (Auto) Baso % (Auto) Lymph # (Auto) 0.64 L 0.56 L [place] # (Auto) Abs Immat Gran (auto) 0.14 H 0.27 H Absolute Neuts (auto) 10.0 H 8.2 H Sodium 135 L Carbon Dioxide 33 H 33 H Anion Gap 2 L Creatinine 0.66 L Glucose 150 H 158 H Calcium 8.3 L 8.3 L AST ALT 39 H 38 H Total Protein 6.0 L 6.0 L Albumin 3.1 L 3.0 L
[2024-06-29] VITALS (11 sets, daily range): BP systolic 123–136; BP diastolic 63–75; PULSE 62–96; RESP 12–20; TEMP 35.9–37.2; O2SAT 94–95
[2024-06-29] MEDS: IPRATROPIUM 0.5 MG/ALBUTEROL SULFATE 2.5 MG AMPUL.NEB 3 ML INHALATION ×3 (02:16→15:08)
[2024-06-29] MEDS: AMOXICILLIN/CLAVULANATE K 875-125 MG TAB 1 TABLET PO ×2 (05:59→16:59)
[2024-06-29 06:46] LABS: Basophils Absolute Auto 0.1 K/mm3 (0.0-0.1); Basophils Percent Auto 0.7 % (0.2-1.2); Hematocrit 39.3 % (37.0-47.0); Hemoglobin 12.9 g/dL (12.0-15.0); Immature Granulocyte Absolute 0.58 K/mm3 (0.00-0.031); Immature Granulocyte Percent A 4.2 % (0-0.5); Lymphocytes Absolute Auto 0.89 K/mm3 (0.9-3.2); Lymphocytes Percent Auto 6.4 % (18.3-44.2); Mean Corpuscular HGB Conc 32.8 g/dl (32-36); Mean Corpuscular Volume 94.5 fl (80-100); Monocytes Absolute Auto 0.9 K/mm3 (0.1-0.6); Monocytes Percent Auto 6.3 % (2.6-8.5); Neutrophils Absolute Auto 11.4 K/mm3 (1.3-6.7); Neutrophils Percent Auto 82.4 % (45.5-73.1); Platelet Count Result 303 k/mm3 (150-375); Red Blood Count 4.16 M/mm3 (4.2-5.4); Red Cell Distribution Width 11.8 % (11.5-14.5); White Blood Count 13.9 K/mm3 (4.5-10.0)
[2024-06-29] MEDS: predniSONE 10 MG TABLET 50 MG PO (08:57)
[2024-06-29] MEDS: guaiFENesin 12 HR 600 MG TABCR PO ×2 (08:57→20:08)
[2024-06-29] MEDS: LORATADINE 10 MG TABLET PO (08:57)
[2024-06-29 08:58] LABS: Alanine Aminotransferase 36 U/L (6-35); Albumin Level 3.1 g/dL (3.5-5.1); Alkaline Phosphatase 83 U/L (38-126); Aspartate Amino Transferase 23 U/L (14-36); Bilirubin,Total 0.3 mg/dL (0.2-1.3); Blood Urea Nitrogen 18 mg/dL (7-17); Calcium 8.5 mg/dL (8.4-10.2); Carbon Dioxide 33 mmol/L (22-30); Chloride 101 mmol/L (98-107); Estimated CRCL calculation 51 ml/min; Estimated Glomerular Filt Rate > 60; Glucose 122 mg/dL (65-110); Magnesium 2.4 mg/dL (1.6-2.3)
[2024-06-29] MEDS: FLUCONAZOLE 100 MG TABLET PO (08:58)
[2024-06-29] MEDS: DOCOSANOL 10% CREAM 2 GM 1 APPLIC TOPICAL ×5 (09:00→20:08)
[2024-06-29] MEDS: SALINE 0.65% NAS SOLN 44 ML BTL 1 SPRAY NASAL ×2 (09:01→20:07)
[2024-06-29 10:19] LABS: Anion Gap 1 mmol/L (4-12); Sodium 135 mmol/L (137-145)
--- NOTE | 2024-06-29 11:15 | PM.IMPN ---
Progress Note: A&P Assessment and Plan (1) Acute respiratory failure with hypoxia: Code(s): J96.01 - Acute respiratory failure with hypoxia Status: Acute Assessment and Plan: Per chart review patient had an SpO2 80% upon check in to the ED, placed on 2L NC and oxygen saturations remain stable. - O2 requirement:off oxygen, Sa02 94% RA, baseline room air. Continue to wean as tolerating for SpO2 > 90%. - Suspected cause: pneumonia and concurrent asthma - CXR: bibasilar opacification more on the left side suggestive of pneumonia and highly suggestive opacity in the right upper lobe with destructive changes in the adjacent rib. - Chest CT: Suspected 10 x 13 mm right upper lobe bronchogenic carcinoma Emphysema Multifocal pulmonary infiltrates suggesting bilateral pneumonia - See plan below (2) Pneumonia: Code(s): J18.9 - Pneumonia, unspecified organism Status: Acute Assessment and Plan: - CXR: bibasilar opacification more on the left side suggestive of pneumonia and highly suggestive opacity in the right upper lobe with destructive changes in the adjacent rib. - Chest CT: Suspected 10 x 13 mm right upper lobe bronchogenic carcinoma Emphysema Multifocal pulmonary infiltrates suggesting bilateral pneumonia - Complicating Factors: asthma - started on CAP tx: azithromycin ceftriaxone on 06/24. Currently receiving Augmentin 875-125 mg 1 tablet oral BID. - Viral PCR: negative for Flu/COVID/RSV - Blood cultures obtained on 06/23: NGTD - O2 requirement: off oxygen, Sa02 95% RA, baseline room air. Continue to wean as tolerating for SpO2 > 90%. - Monitor vital signs, I&Os, neuro status and patient is a fall risk. - WBC trend 12.8>11.3>9.6>13.9. - Follow WBC, serum electrolytes, temperature curves and cultures. - Steroids switched to an oral taper. (3) Asthma: Qualifiers: Asthma complication type: unspecified Asthma persistence: intermittent Asthma severity: mild Qualified Code(s): J45.20 - Mild intermittent asthma, uncomplicated Code(s): J45.909 - Unspecified asthma, uncomplicated Status: Acute Assessment and Plan: - Oxygen requirement:2L NC, baseline room air. Continue to wean as tolerating for SpO2 > 90%. - Chest XR: bibasilar opacification more on the left side suggestive of pneumonia and highly suggestive opacity in the right upper lobe with destructive changes in the adjacent rib. - Chest CT: Suspected 10 x 13 mm right upper lobe bronchogenic carcinoma Emphysema Multifocal pulmonary infiltrates suggesting bilateral pneumonia - Current treatment: DuoNeb and steroids switched to oral taper. 06/26: Continue to endorse wheezing, worse with ambulation. Wheezing unchanged on exam. 06/28: Continue wheezing and not feeling better. Pulmonology consulted. 06/29: Patient reports still wheezing alot and not feeling much better. 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 - Chest XR: bibasilar opacification more on the left side suggestive of pneumonia and highly suggestive opacity in the right upper lobe with destructive changes in the adjacent rib. - Chest CT: Suspected 10 x 13 mm right upper lobe bronchogenic carcinoma - Continue outpatient follow up (5) Thrush, oral: Code(s): B37.0 - Candidal stomatitis Status: Acute Assessment and Plan: Mild thrush to the oral region likely from prolonged inhaler use. - Fluconazole 200 mg x1, then 100 mg daily - Monitor Subjective Date/time seen: 06/29/24 11:15 Interval history: Patient reports still wheezing alot and not feeling much better. Patient denies chest pain, palpitations, headache, dizziness, nausea, or vomiting. Family at bedside. Patient has been up walking in the hallway. Review of Systems Review of Systems: All systems reviewed & are unremarkable except as noted in HPI and below Exam Const: General: comfortable and no acute distress Eyes: Sclera: sclerae normal Resp: Effort & Inspection: normal respiratory effort Auscultation: wheezes expiratory wheezes and diminished lung sounds Cardio: Rate: regular rate Rhythm: regular rhythm GI: GI Palp: Yes Soft to palpation Auscultation: normal bowel sounds Skin: General skin exam: no rashes or lesions noted Neuro: Speech: normal speech Extrem: General: no pedal edema Psych: Mental Status: mental status grossly normal Affect: normal affect Objective Data Vital Signs Vital Signs: Vital Signs - 24 hr 06/28/24 13:20 06/28/24 13:27 06/28/24 14:00 Temperature 98.2 F Pulse Rate 80 82 91 Respiratory Rate 20 20 18 Blood Pressure 128/70 Pulse Oximetry 95 Oxygen Delivery 06/28/24 20:00 06/28/24 22:00 06/28/24 22:03 Temperature Pulse Rate 69 69 Respiratory Rate 20 Blood Pressure Pulse Oximetry 94 Oxygen Delivery Room Air Room Air 06/28/24 22:14 06/28/24 22:19 06/29/24 02:16 Temperature 97.6 F Pulse Rate 74 80 74 Respiratory Rate 20 16 20 Blood Pressure 136/76 Pulse Oximetry 94 Oxygen Delivery 06/29/24 02:25 06/29/24 05:18 06/29/24 08:00 Temperature 98.2 F Pulse Rate 72 82 Respiratory Rate 20 16 Blood Pressure 136/63 Pulse Oximetry 95 94 Oxygen Delivery Room Air 06/29/24 08:00 06/29/24 08:10 Temperature Pulse Rate 62 68 Respiratory Rate 20 20 Blood Pressure Pulse Oximetry Oxygen Delivery Intake/Output Intake/Output: Intake & Output 06/26/24 06/27/24 06/28/24 06/29/24 23:59 23:59 23:59 23:59 Intake Total 1407 2325 2960 830 Balance 1407 2325 2960 830 Meds/Results Medications: Active Medications Generic Name Dose Route Start Last Admin Trade Name Freq PRN Reason Stop Dose Admin Albuterol 2.5 mg 06/24/24 14:58 Albuterol Sulfate Neb 2.5 Mg/3 Ml Inh INHALATION Q6H PRN shortness of breath or wheezing Albuterol/Ipratropium 3 ml 06/24/24 14:00 06/29/24 08:00 Ipratropium 0.5 Mg/Albuterol Sulfate 2.5 Mg Ampul.Neb 3 Ml INHALATION 3 ml Q6HRT NICOLE Administration Amoxicillin/Clavulanate Potassium 1 tablet 06/29/24 06:00 06/29/24 05:59 Amoxicillin/Clavulanate K 875-125 Mg Tab PO 06/30/24 17:01 1 tablet BID NICOLE Administration Docosanol 1 applic 06/29/24 09:00 06/29/24 09:00 Docosanol 10% Cream 2 Gm TOPICAL 1 applic 5 TIMES DAILY NICOLE Administration Enoxaparin Sodium 40 mg 06/25/24 09:00 06/29/24 08:58 Enoxaparin 40 Mg/0.4 Ml Syringe SUB-Q Not Given DAILY ON LICENSE OF [facility] Fluconazole 100 mg 06/27/24 09:00 06/29/24 08:58 Fluconazole 100 Mg Tablet PO 07/02/24 09:00 100 mg QAM NICOLE Administration Guaifenesin 600 mg 06/25/24 09:00 06/29/24 08:57 Guaifenesin 12 Hr 600 Mg Tabcr PO 600 mg Q12HR NICOLE Administration Loratadine 10 mg 06/25/24 09:00 06/29/24 08:57 Loratadine 10 Mg Tablet PO 10 mg QAM NICOLE Administration Prednisone 40 mg 07/01/24 08:00 Prednisone 20 Mg Tablet PO 07/02/24 08:01 DAILY@0800 ON LICENSE OF [facility] Prednisone 30 mg 07/03/24 08:00 Prednisone 10 Mg Tablet PO 07/04/24 08:01 DAILY@0800 ON LICENSE OF [facility] Prednisone 20 mg 07/05/24 08:00 Prednisone 20 Mg Tablet PO 07/06/24 08:01 DAILY@0800 ON LICENSE OF [facility] Prednisone 50 mg 06/29/24 08:00 06/29/24 08:57 Prednisone 10 Mg Tablet PO 06/30/24 08:01 50 mg DAILY@0800 ON LICENSE OF [facility] Administration Sodium Chloride 1 spray 06/27/24 21:00 06/29/24 09:01 Saline 0.65% Carlos Soln 44 Ml Btl NASAL 1 spray Q12HR ON LICENSE OF [facility] Administration Sodium Chloride 6 ml 06/29/24 09:00 Sodium Chlor 3% 15 Ml Neb (Respiratory Therapy) INHALATION TID ON LICENSE OF [facility] Radiology Results: ITS Impressions Chest X-Ray 06/23/24 21:55 IMPRESSION: Bibasilar opacification more on the left side suggestive of pneumonia. Highly suggestive opacity in the right upper lobe with destructive changes in the adjacent rib. CT evaluation is advised. Chest CT 06/24/24 10:13 IMPRESSION: Suspected 10 x 13 mm right upper lobe bronchogenic carcinoma Emphysema Multifocal pulmonary infiltrates suggesting bilateral pneumonia Labs Labs: Laboratory Results - last 24 hr 06/29/24 06/29/24 06:21 06:22 WBC 13.9 H RBC 4.16 L Hgb 12.9 Hct 39.3 MCV 94.5 MCH 31.0 MCHC 32.8 RDW 11.8 Plt Count 303 MPV 10.0 Immature Gran % (Auto) 4.2 H Neut % (Auto) 82.4 H Lymph % (Auto) 6.4 L [place] % (Auto) 6.3 Eos % (Auto) 0.0 Baso % (Auto) 0.7 Lymph # (Auto) 0.89 L [place] # (Auto) 0.9 H Eos # (Auto) 0.0 Baso # (Auto) 0.1 Abs Immat Gran (auto) 0.58 H Absolute Neuts (auto) 11.4 H Absolute Nucleated RBC 0.000 Nucleated RBC % 0.0 Sodium 135 L Potassium 4.0 Chloride 101 Carbon Dioxide 33 H Anion Gap 1 L BUN 18 H Creatinine 0.68 L Estim Creat Clear Calc 51 Estimated GFR > 60 Glucose 122 H Calcium 8.5 Magnesium 2.4 H Total Bilirubin 0.3 AST 23 ALT 36 H Alkaline Phosphatase 83 Total Protein 6.0 L Albumin 3.1 L Quality VTE Prophylaxis VTE prophylaxis: pharmacologic ordered
--- NOTE | 2024-06-29 12:41 | PM.PNPUL ---
Progress Note: A&P Assessment and Plan (1) Multifocal pneumonia: Code(s): J18.9 - Pneumonia, unspecified organism Status: Acute Assessment and Plan: 06/23/[address] : anteromedial right mid lung. There is tree-in-bud infiltrate in the posteromedial right upper lobe and anterolateral right upper lobe and the lingula. Scattered multifocal mild right lower lobe tree-in-bud infiltrate. She had yellow sputum before admission, this has resolved. WBC is lower, was 19 K, now 9 k. She is on oral antibiotics, IV Rocephin and Levaquin stopped, now on Amoxicillin and oral Levaquin. Started oral prednisone. Her saturation is 94%, room air; does not need walk study before discharge. (2) Pulmonary nodule: Code(s): R91.1 - Solitary pulmonary nodule Status: Acute Assessment and Plan: this has been on her chest CT since 2021, was biopsied, benign; caseating granulomas. (3) Asthma-COPD overlap syndrome: Code(s): J44.89 - Other specified chronic obstructive pulmonary disease Status: Acute Assessment and Plan: She has exacerbation of symptoms in the setting of multifocal pneumonia. She has less sputum now, dose not need O2 at rest. She has severe airflow obstruction. She has no elevated eosinophils on any prior testing. Quit smoking cigarettes years ago, smoked at most 1 ppd for 20 years. Plan plan: continue current treatment; continue Cornet valve, 3% saline, pulmonary hygiene to clear secretions Peak flow monitoring; Peak flow today is 250 L/min, still in the yellow zone. controller meds here in hospital : 1. budesonide 15 mcg/2 ml bid, 2. Serevent 50 mcg one puff bid; pharmacist Usman garcia, said that Serevent is not going to be an affordable medication in the real world. 3. ipratropium 0.5 mg qid nebulized 4. Albuterol 2.5 mg nebulized once a day She can still carry albuterol with her as an inhaler for p.r.n. rescue use at home. No vital signs overnight to allow her to sleep. She is eligible for a free Part D plan as she is over 65 years old, she does not have a Part D plan now, that she is aware of; she can find a formulary optional to work for her. I talked with her about this, and her family was at the bedside. Oral antibiotics, peak flow monitoring, jose at home, asthma action plan so she has an idea what to do when she deteriorates at home; Amoxicillin and azithromycin. She had an echo a year ago; if she continues to wheeze, will repeat. It is possible that she had a negative PCR swab for RSV, influenza A/B, and COVID, with a false negative. We have seen this on extended respiratory pathogen panel. If she has RSV, she will cough amd wheeze for a couple of months. I gave her written information to call her insurance company, see if she can get arformoterol / budesonide bid & ipratropium tid with prn albuterol for her nebulizer; stop Trelegy / Marlon as she cannot afford this. Cost is becoming a more difficult issue all the time. She would benefit from RSV vaccination. Subjective Date/time seen: 06/29/24 12:41 Interval history: 06/29/24: She says that she is still wheezing. She has the Cornet valve, used it w 3% saline, and secretions seem to be moving. Mag level was 2.4 today, great, does not need IV mag supplementation. She had an echo a year ago, EF 50-55% and small PFO. I ordered Abreva for her cold sore, much better. She is eating well. Not sleeping well because of night time interruptions, noise. 06/20/23: Left ventricular chamber dimension is normal. 2. Left ventricular systolic function is normal, estimated at 50-55%. 3. The left ventricular diastolic function is grade I diastolic dysfunction. 4. Right ventricular systolic function is normal. 5. Bubble study shows small right to left shunt, consistent with PFO. 6. There is trace mitral valve regurgitation. 7. There is trace tricuspid valve regurgitation. 06/28/24, new consult; Awa Stringer is a 68 year old woman who has asthma-COPD overlap, admitted June 23 with increasing shortness of breath and low oxygen saturation at home. She is not on home oxygen. On arrival saturation was 80%. She has a history of asthma, and has had asthma exacerbations typically in June. She was using nebulized albuterol but it was not helping over the last day or so. She improved on O2 at 2 L/minute. She is now on room air, feels better however she is still have wheezing, jose with exertion. Her procalcitonin was 0.1 on Jun 21. WBC was high 19.4, came down to 9.6. She is seen in our practice, last visit was 11/22/23; she says that she felt that she was getting sick, called the office to get antibiotics at the end of May; when she took the azithromycin, she felt better, however deteriorated. She had a similar episode last June. She was using Breztri and Trelegy, alternating samples from out office as she cannot qualify for patient assistance, and the cost is too high. She thinks that Trelegy worked better, but these are both expensive. She was not using either one of them quality control expert when she became sick, was not able to take a deep enough breath to get the medication into her lungs. She has albuterol and ipratropium solution every 4 hours in her home nebulizer in the days before admission. She had thick yellow sputum, increased shortness of breath, increased right nasal blockage at night, a problem for years. She does not spend much time in public places, was not around any sick contacts before this happened. She had thrush recently, improved on oral meds, and she had recurrence of cold sore on left side of her mouth with this episode of pneumonia. Vaccination: Had pneumonia vaccination 2 years ago, completed 2 COVID vax, will not take more. Had influenza vaccination. Triggers: for asthma, triggers include mostly fragrance; weather changes, molds, cats, and increased wheezing after getting infections. She has a peak flow meter, has it with her today. does not use it at home. She checks her saturation at home, always in the mid 90% range. DATA * alpha-1 = MM, normal genotype. * 06/24/[address] : There is a 10 x 13 mm mass in the right upper lobe likely due to bronchogenic carcinoma. Bilateral hyperinflation/emphysema. There is focal infiltrate and/atelectasis is noted involving the anteromedial right mid lung. There is tree-in-bud infiltrate in the posteromedial right upper lobe and anterolateral right upper lobe and the lingula. Scattered multifocal mild right lower lobe tree-in-bud infiltrate. Normal heart size. No pericardial or pleural effusion. No thoracic aortic aneurysm or dissection. No hilar or mediastinal mass lesion or lymphadenopathy. Small sliding hiatal hernia Normal morphology of the adrenal glands. Included upper abdominal structures are unremarkable. No suspicious osteolytic or osteoblastic lesions are noted. IMPRESSION: Suspected 10 x 13 mm right upper lobe bronchogenic carcinoma Emphysema Multifocal pulmonary infiltrates suggesting bilateral pneumonia Review of Systems Review of Systems: All systems reviewed & are unremarkable except as noted in HPI and below Exam Narrative: GEN: Alert, oriented, not in distress; on room air, 94% on room air HEENT: pupils are equal, EOMI, symmetrical face; oral membranes moist, Mallampati II airway; she has cold sore on the left side of her mouth NECK: Trachea is midline CHEST: Equal air entry, symmetric excursion, hyperinflated chest, decreased breath sounds, slight wheeze on exhalation CV: Regular S1S2 no m/g/r ABD : (+) bowel sounds Extremities : no clubbing, cyanosis, or edema PSYCH: normal thought and speech, gait is normal Objective Data Vital Signs Vital Signs: Vital Signs - 24 hr 06/28/24 13:20 06/28/24 13:27 06/28/24 14:00 Temperature 36.8 C Pulse Rate 80 82 91 Respiratory Rate 20 20 18 Blood Pressure 128/70 Pulse Oximetry 95 Oxygen Delivery 06/28/24 20:00 06/28/24 22:00 06/28/24 22:03 Temperature Pulse Rate 69 69 Respiratory Rate 20 Blood Pressure Pulse Oximetry 94 Oxygen Delivery Room Air Room Air 06/28/24 22:14 06/28/24 22:19 06/29/24 02:16 Temperature 36.4 C Pulse Rate 74 80 74 Respiratory Rate 20 16 20 Blood Pressure 136/76 Pulse Oximetry 94 Oxygen Delivery 06/29/24 02:25 06/29/24 05:18 06/29/24 08:00 Temperature 36.8 C Pulse Rate 72 82 Respiratory Rate 20 16 Blood Pressure 136/63 Pulse Oximetry 95 94 Oxygen Delivery Room Air 06/29/24 08:00 06/29/24 08:10 Temperature Pulse Rate 62 68 Respiratory Rate 20 20 Blood Pressure Pulse Oximetry Oxygen Delivery Intake/Output Intake/Output: Intake & Output 06/26/24 06/27/24 06/28/24 06/29/24 23:59 23:59 23:59 23:59 Intake Total 1407 2325 2960 830 Balance 1407 2325 2960 830 Meds/Results Medications: Active Medications Generic Name Dose Route Start Last Admin Trade Name Freq PRN Reason Stop Dose Admin Albuterol 2.5 mg 06/24/24 14:58 Albuterol Sulfate Neb 2.5 Mg/3 Ml Inh INHALATION Q6H PRN shortness of breath or wheezing Albuterol/Ipratropium 3 ml 06/24/24 14:00 06/29/24 08:00 Ipratropium 0.5 Mg/Albuterol Sulfate 2.5 Mg Ampul.Neb 3 Ml INHALATION 3 ml Q6HRT NICOLE Administration Amoxicillin/Clavulanate Potassium 1 tablet 06/29/24 06:00 06/29/24 05:59 Amoxicillin/Clavulanate K 875-125 Mg Tab PO 06/30/24 17:01 1 tablet BID NICOLE Administration Docosanol 1 applic 06/29/24 09:00 06/29/24 09:00 Docosanol 10% Cream 2 Gm TOPICAL 1 applic 5 TIMES DAILY NICOLE Administration Enoxaparin Sodium 40 mg 06/25/24 09:00 06/29/24 08:58 Enoxaparin 40 Mg/0.4 Ml Syringe SUB-Q Not Given DAILY NICOLE Fluconazole 100 mg 06/27/24 09:00 06/29/24 08:58 Fluconazole 100 Mg Tablet PO 07/02/24 09:00 100 mg QAM NICOLE Administration Guaifenesin 600 mg 06/25/24 09:00 06/29/24 08:57 Guaifenesin 12 Hr 600 Mg Tabcr PO 600 mg Q12HR NICOLE Administration Loratadine 10 mg 06/25/24 09:00 06/29/24 08:57 Loratadine 10 Mg Tablet PO 10 mg QAM NICOLE Administration Prednisone 40 mg 07/01/24 08:00 Prednisone 20 Mg Tablet PO 07/02/24 08:01 DAILY@0800 [facility] Prednisone 30 mg 07/03/24 08:00 Prednisone 10 Mg Tablet PO 07/04/24 08:01 DAILY@0800 [facility] Prednisone 20 mg 07/05/24 08:00 Prednisone 20 Mg Tablet PO 07/06/24 08:01 DAILY@0800 [facility] Prednisone 50 mg 06/29/24 08:00 06/29/24 08:57 Prednisone 10 Mg Tablet PO 06/30/24 08:01 50 mg DAILY@0800 [facility] Administration Sodium Chloride 1 spray 06/27/24 21:00 06/29/24 09:01 Saline 0.65% Carlos Soln 44 Ml Btl NASAL 1 spray Q12HR NICOLE Administration Sodium Chloride 6 ml 06/29/24 09:00 Sodium Chlor 3% 15 Ml Neb (Respiratory Therapy) INHALATION TID [facility] Radiology Results: ITS Impressions Chest X-Ray 06/23/24 21:55 IMPRESSION: Bibasilar opacification more on the left side suggestive of pneumonia. Highly suggestive opacity in the right upper lobe with destructive changes in the adjacent rib. CT evaluation is advised. Chest CT 06/24/24 10:13 IMPRESSION: Suspected 10 x 13 mm right upper lobe bronchogenic carcinoma Emphysema Multifocal pulmonary infiltrates suggesting bilateral pneumonia Labs Labs: Laboratory Results - last 24 hr 06/29/24 06/29/24 06:21 06:22 WBC 13.9 H RBC 4.16 L Hgb 12.9 Hct 39.3 MCV 94.5 MCH 31.0 MCHC 32.8 RDW 11.8 Plt Count 303 MPV 10.0 Immature Gran % (Auto) 4.2 H Neut % (Auto) 82.4 H Lymph % (Auto) 6.4 L Charles % (Auto) 6.3 Eos % (Auto) 0.0 Baso % (Auto) 0.7 Lymph # (Auto) 0.89 L Charles # (Auto) 0.9 H Eos # (Auto) 0.0 Baso # (Auto) 0.1 Abs Immat Gran (auto) 0.58 H Absolute Neuts (auto) 11.4 H Absolute Nucleated RBC 0.000 Nucleated RBC % 0.0 Sodium 135 L Potassium 4.0 Chloride 101 Carbon Dioxide 33 H Anion Gap 1 L BUN 18 H Creatinine 0.68 L Estim Creat Clear Calc 51 Estimated GFR > 60 Glucose 122 H Calcium 8.5 Magnesium 2.4 H Total Bilirubin 0.3 AST 23 ALT 36 H Alkaline Phosphatase 83 Total Protein 6.0 L Albumin 3.1 L
--- NOTE | 2024-06-29 15:05 | PCRCNOTE ---
Window of time for administration has passed. See next scheduled administration.
[2024-06-29] MEDS: SODIUM CHLOR 3% 15 ML NEB (RESPIRATORY THERAPY) 6 ML INHALATION (15:09)
[2024-06-29] MEDS: SALMETEROL XINAFOATE 50 MCG DISKUS 1 PUFF INHALATION (20:00)
[2024-06-29] MEDS: IPRATROPIUM BR 0.02% INH SOLN 0.5 MG/2.5 ML VIAL INHALATION (20:53)
[2024-06-29] MEDS: BUDESONIDE RESPULE NEB 0.5 MG/2 ML AMP INHALATION (20:56)
[2024-06-30] VITALS (15 sets, daily range): BP systolic 121–137; BP diastolic 67–73; PULSE 63–88; RESP 12–20; TEMP 36.2–36.8; O2SAT 63–99
[2024-06-30 07:42] LABS: Basophils Percent Auto 0.1 % (0.2-1.2); Eosinophils Percent Auto 0.1 % (0-4.4); Hematocrit 39.9 % (37.0-47.0); Hemoglobin 12.7 g/dL (12.0-15.0); Immature Granulocyte Absolute 1.16 K/mm3 (0.00-0.031); Lymphocytes Percent Auto 10.2 % (18.3-44.2); Mean Corpuscular HGB Conc 31.8 g/dl (32-36); Mean Corpuscular Hemoglobin 30.4 pg (26-34); Mean Corpuscular Volume 95.5 fl (80-100); Mean Platelet Volume 9.9 fl (7.4-10.4); Monocytes Absolute Auto 1.3 K/mm3 (0.1-0.6); Neutrophils Absolute Auto 12.5 K/mm3 (1.3-6.7); Neutrophils Percent Auto 74.6 % (45.5-73.1); Platelet Count Result 322 k/mm3 (150-375); Red Blood Count 4.18 M/mm3 (4.2-5.4); Red Cell Distribution Width 11.8 % (11.5-14.5); White Blood Count 16.7 K/mm3 (4.5-10.0)
[2024-06-30 07:46] LABS: Alanine Aminotransferase 46 U/L (6-35); Alkaline Phosphatase 81 U/L (38-126); Anion Gap 0 mmol/L (4-12); Aspartate Amino Transferase 25 U/L (14-36); Bilirubin,Total 0.4 mg/dL (0.2-1.3); Blood Urea Nitrogen 17 mg/dL (7-17); Calcium 8.4 mg/dL (8.4-10.2); Carbon Dioxide 35 mmol/L (22-30); Chloride 100 mmol/L (98-107); Estimated CRCL calculation 47 ml/min; Estimated Glomerular Filt Rate > 60; Glucose 82 mg/dL (65-110); Sodium 135 mmol/L (137-145)
[2024-06-30] MEDS: IPRATROPIUM BR 0.02% INH SOLN 0.5 MG/2.5 ML VIAL INHALATION ×4 (08:48→21:50)
[2024-06-30] MEDS: BUDESONIDE RESPULE NEB 0.5 MG/2 ML AMP INHALATION ×2 (08:48→21:49)
[2024-06-30] MEDS: LORATADINE 10 MG TABLET PO (10:09)
[2024-06-30] MEDS: guaiFENesin 12 HR 600 MG TABCR PO ×2 (10:09→22:12)
[2024-06-30] MEDS: predniSONE 10 MG TABLET 50 MG PO (10:09)
[2024-06-30] MEDS: FLUCONAZOLE 100 MG TABLET PO (10:09)
[2024-06-30] MEDS: AMOXICILLIN/CLAVULANATE K 875-125 MG TAB 1 TABLET PO ×2 (10:10→18:12)
[2024-06-30] MEDS: SALMETEROL XINAFOATE 50 MCG DISKUS 1 PUFF INHALATION ×2 (10:10→21:50)
[2024-06-30] MEDS: DOCOSANOL 10% CREAM 2 GM 1 APPLIC TOPICAL ×5 (10:10→22:12)
[2024-06-30] MEDS: SALINE 0.65% NAS SOLN 44 ML BTL 1 SPRAY NASAL ×2 (10:14→22:12)
--- NOTE | 2024-06-30 11:00 | PM.IMPN ---
Progress Note: A&P Assessment and Plan (1) Acute respiratory failure with hypoxia: Code(s): J96.01 - Acute respiratory failure with hypoxia Status: Acute Assessment and Plan: Per chart review patient had an SpO2 80% upon check in to the ED, placed on 2L NC and oxygen saturations remain stable. - O2 requirement:off oxygen, Sa02 94% RA, baseline room air. Continue to wean as tolerating for SpO2 > 90%. - Suspected cause: pneumonia and concurrent asthma - CXR: bibasilar opacification more on the left side suggestive of pneumonia and highly suggestive opacity in the right upper lobe with destructive changes in the adjacent rib. - Chest CT: Suspected 10 x 13 mm right upper lobe bronchogenic carcinoma Emphysema Multifocal pulmonary infiltrates suggesting bilateral pneumonia - See plan below (2) Pneumonia: Code(s): J18.9 - Pneumonia, unspecified organism Status: Acute Assessment and Plan: - CXR: bibasilar opacification more on the left side suggestive of pneumonia and highly suggestive opacity in the right upper lobe with destructive changes in the adjacent rib. - Chest CT: Suspected 10 x 13 mm right upper lobe bronchogenic carcinoma Emphysema Multifocal pulmonary infiltrates suggesting bilateral pneumonia - Complicating Factors: asthma - started on CAP tx: azithromycin ceftriaxone on 06/24. Currently receiving Augmentin 875-125 mg 1 tablet oral BID. - Viral PCR: negative for Flu/COVID/RSV - Blood cultures obtained on 06/23: NGTD - O2 requirement: off oxygen, Sa02 95% RA, baseline room air. Continue to wean as tolerating for SpO2 > 90%. - Monitor vital signs, I&Os, neuro status and patient is a fall risk. - WBC trend 12.8>11.3>9.6>13.9>16.7. - Follow WBC, serum electrolytes, temperature curves and cultures. - Steroids oral taper. (3) Asthma: Qualifiers: Asthma complication type: unspecified Asthma persistence: intermittent Asthma severity: mild Qualified Code(s): J45.20 - Mild intermittent asthma, uncomplicated Code(s): J45.909 - Unspecified asthma, uncomplicated Status: Acute Assessment and Plan: - Oxygen requirement:2L NC, baseline room air. Continue to wean as tolerating for SpO2 > 90%. - Chest XR: bibasilar opacification more on the left side suggestive of pneumonia and highly suggestive opacity in the right upper lobe with destructive changes in the adjacent rib. - Chest CT: Suspected 10 x 13 mm right upper lobe bronchogenic carcinoma Emphysema Multifocal pulmonary infiltrates suggesting bilateral pneumonia - Current treatment: Budesonide 0.5mg inhaled q 12, Ipratropium 0.02% 0.5 mg inhaled QID, Salmetrol 1 puff q12, and steroids oral taper. 06/26: Continue to endorse wheezing, worse with ambulation. Wheezing unchanged on exam. 06/28: Continue wheezing and not feeling better. Pulmonology consulted. 06/29: Patient reports still wheezing alot and not feeling much better. 06/30: Patient reports feeling slightly better. (4) Mass of upper lobe of right lung: Code(s): R91.8 - Other nonspecific abnormal finding of lung field Status: Acute Assessment and Plan: Patient is aware of the nodule and this has been previously biopsied by her provider contracting consultant. 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 - Chest XR: bibasilar opacification more on the left side suggestive of pneumonia and highly suggestive opacity in the right upper lobe with destructive changes in the adjacent rib. - Chest CT: Suspected 10 x 13 mm right upper lobe bronchogenic carcinoma - Continue outpatient follow up (5) Thrush, oral: Code(s): B37.0 - Candidal stomatitis Status: Acute Assessment and Plan: Mild thrush to the oral region likely from prolonged inhaler use. - Fluconazole 200 mg x1, then 100 mg daily - Monitor (6) Cold sore: Code(s): B00.1 - Herpesviral vesicular dermatitis Status: Acute Assessment and Plan: Valacyclovir 1,000 mg PO q 12. Monitor site. Subjective Date/time seen: 06/30/24 11:00 Interval history: Patient reports feeling slightly better. Patient denies chest pain, palpitations, headache, dizziness, nausea, or vomiting. Patient reports cold sore in left corner of mouth is not improving with Abreva, mouth is difficult to open, and no drainage. Review of Systems Review of Systems: All systems reviewed & are unremarkable except as noted in HPI and below Exam Const: General: comfortable and no acute distress Resp: Effort & Inspection: normal respiratory effort Auscultation: wheezes expiratory wheezes and diminished lung sounds Cardio: Rate: regular rate Rhythm: regular rhythm GI: GI Palp: Yes Soft to palpation Auscultation: normal bowel sounds Skin: General skin exam: no rashes or lesions noted Neuro: Speech: normal speech Extrem: General: no pedal edema Psych: Mental Status: mental status grossly normal Affect: normal affect Objective Data Vital Signs Vital Signs: Vital Signs - 24 hr 06/29/24 14:00 06/29/24 15:10 06/29/24 15:29 Temperature 98.9 F Pulse Rate 81 84 96 Respiratory Rate 20 20 20 Blood Pressure 123/75 Pulse Oximetry 94 Oxygen Delivery Fraction of Inspired Oxygen 06/29/24 20:00 06/29/24 20:01 06/29/24 20:55 Temperature 96.7 F L Pulse Rate 84 86 Respiratory Rate 12 20 Blood Pressure 135/69 Pulse Oximetry 95 Oxygen Delivery Room Air Fraction of Inspired Oxygen 06/29/24 21:02 06/30/24 04:48 06/30/24 08:46 Temperature 97.1 F L Pulse Rate 87 63 Respiratory Rate 20 14 Blood Pressure 137/69 Pulse Oximetry 63 L 99 Oxygen Delivery Fraction of Inspired Oxygen 06/30/24 08:48 06/30/24 08:48 06/30/24 09:04 Temperature Pulse Rate 80 84 Respiratory Rate 20 20 Blood Pressure Pulse Oximetry 99 Oxygen Delivery Room Air Fraction of Inspired Oxygen 21 Intake/Output Intake/Output: Intake & Output 06/27/24 06/28/24 06/29/24 06/30/24 23:59 23:59 23:59 23:59 Intake Total 2325 2960 2860 635 Balance 2325 2960 2860 635 Meds/Results Medications: Active Medications Generic Name Dose Route Start Last Admin Trade Name Jasvirq PRN Reason Stop Dose Admin Amoxicillin/Clavulanate Potassium 1 tablet 06/29/24 06:00 06/30/24 10:10 Amoxicillin/Clavulanate K 875-125 Mg Tab PO 06/30/24 17:01 1 tablet BID NICOLE Administration Budesonide 0.5 mg 06/29/24 20:00 06/30/24 08:48 Budesonide Respule Neb 0.5 Mg/2 Ml Amp INHALATION 0.5 mg Q12HRT NICOLE Administration Docosanol 1 applic 06/29/24 09:00 06/30/24 10:10 Docosanol 10% Cream 2 Gm TOPICAL 1 applic 5 TIMES DAILY NICOLE Administration Enoxaparin Sodium 40 mg 06/25/24 09:00 06/30/24 10:09 Enoxaparin 40 Mg/0.4 Ml Syringe SUB-Q Not Given DAILY [facility] Fluconazole 100 mg 06/27/24 09:00 06/30/24 10:09 Fluconazole 100 Mg Tablet PO 07/02/24 09:00 100 mg QAM NICOLE Administration Guaifenesin 600 mg 06/25/24 09:00 06/30/24 10:09 Guaifenesin 12 Hr 600 Mg Tabcr PO 600 mg Q12HR NICOLE Administration Ipratropium Carpenter 0.5 mg 06/29/24 20:00 06/30/24 08:48 Ipratropium Br 0.02% Inh Soln 0.5 Mg/2.5 Ml Vial INHALATION 0.5 mg QIDRT [facility] Administration Loratadine 10 mg 06/25/24 09:00 06/30/24 10:09 Loratadine 10 Mg Tablet PO 10 mg QAM [facility] Administration Prednisone 40 mg 07/01/24 08:00 Prednisone 20 Mg Tablet PO 07/02/24 08:01 DAILY@0800 [facility] Prednisone 30 mg 07/03/24 08:00 Prednisone 10 Mg Tablet PO 07/04/24 08:01 DAILY@0800 [facility] Prednisone 20 mg 07/05/24 08:00 Prednisone 20 Mg Tablet PO 07/06/24 08:01 DAILY@0800 [facility] Salmeterol Xinafoate 1 puff 06/29/24 20:00 06/30/24 10:10 Salmeterol Xinafoate 50 Mcg Diskus INHALATION 1 puff Q12HRT [facility] Administration Sodium Chloride 1 spray 06/27/24 21:00 06/30/24 10:14 Saline 0.65% Carlos Soln 44 Ml Btl NASAL 1 spray Q12HR NICOLE Administration Radiology Results: ITS Impressions Chest X-Ray 06/23/24 21:55 IMPRESSION: Bibasilar opacification more on the left side suggestive of pneumonia. Highly suggestive opacity in the right upper lobe with destructive changes in the adjacent rib. CT evaluation is advised. Chest CT 06/24/24 10:13 IMPRESSION: Suspected 10 x 13 mm right upper lobe bronchogenic carcinoma Emphysema Multifocal pulmonary infiltrates suggesting bilateral pneumonia Labs Labs: Laboratory Results - last 24 hr 06/30/24 07:11 WBC 16.7 H RBC 4.18 L Hgb 12.7 Hct 39.9 MCV 95.5 MCH 30.4 MCHC 31.8 L RDW 11.8 Plt Count 322 MPV 9.9 Immature Gran % (Auto) 7.0 H Neut % (Auto) 74.6 H Lymph % (Auto) 10.2 L Bent % (Auto) 8.0 Eos % (Auto) 0.1 Baso % (Auto) 0.1 L Lymph # (Auto) 1.70 Bent # (Auto) 1.3 H Eos # (Auto) 0.0 Baso # (Auto) 0.0 Abs Immat Gran (auto) 1.16 H Absolute Neuts (auto) 12.5 H Absolute Nucleated RBC 0.000 Nucleated RBC % 0.0 Sodium 135 L Potassium 4.0 Chloride 100 Carbon Dioxide 35 H Anion Gap 0 L BUN 17 Creatinine 0.73 Estim Creat Clear Calc 47 Estimated GFR > 60 Glucose 82 Calcium 8.4 Total Bilirubin 0.4 AST 25 ALT 46 H Alkaline Phosphatase 81 Total Protein 6.0 L Albumin 3.0 L Quality VTE Prophylaxis VTE prophylaxis: pharmacologic ordered
[2024-06-30] MEDS: valACYclovir HCL 500 MG TABLET 1000 MG PO (22:13)
[2024-07-01] VITALS (12 sets, daily range): BP systolic 116–137; BP diastolic 71–84; PULSE 71–87; RESP 12–20; TEMP 36.1–36.4; O2SAT 93–97
[2024-07-01 07:04] LABS: Hematocrit 39.1 % (37.0-47.0); Mean Corpuscular HGB Conc 33.2 g/dl (32-36); Mean Corpuscular Hemoglobin 31.3 pg (26-34); Mean Platelet Volume 9.8 fl (7.4-10.4); Platelet Count Result 317 k/mm3 (150-375); Red Blood Count 4.16 M/mm3 (4.2-5.4); Red Cell Distribution Width 11.9 % (11.5-14.5); White Blood Count 17.4 K/mm3 (4.5-10.0)
[2024-07-01 07:07] LABS: Alanine Aminotransferase 47 U/L (6-35); Albumin Level 2.9 g/dL (3.5-5.1); Alkaline Phosphatase 81 U/L (38-126); Anion Gap 1 mmol/L (4-12); Aspartate Amino Transferase 24 U/L (14-36); Bilirubin,Total 0.4 mg/dL (0.2-1.3); Blood Urea Nitrogen 23 mg/dL (7-17); Calcium 7.9 mg/dL (8.4-10.2); Carbon Dioxide 34 mmol/L (22-30); Chloride 99 mmol/L (98-107); Estimated CRCL calculation 45 ml/min; Estimated Glomerular Filt Rate > 60; Glucose 73 mg/dL (65-110); Potassium 4.2 mmol/L (3.4-5.0); Sodium 134 mmol/L (137-145)
[2024-07-01] MEDS: IPRATROPIUM BR 0.02% INH SOLN 0.5 MG/2.5 ML VIAL INHALATION ×4 (08:08→20:24)
[2024-07-01] MEDS: BUDESONIDE RESPULE NEB 0.5 MG/2 ML AMP INHALATION ×2 (08:08→20:23)
[2024-07-01] MEDS: SALMETEROL XINAFOATE 50 MCG DISKUS 1 PUFF INHALATION (08:20)
[2024-07-01 09:07] LABS: Band Neutrophils Percent 6 % (0-6); Lymphocytes Absolute Manual 1.21 K/mm3 (1.1-4.5); Monocytes Absolute Manual 1.39 K/mm3 (0.1-0.90); Monocytes Percent Manual 8 % (3-9); Neutrophils Absolute Manual 14.79 K/mm3 (1.7-7.2); Neutrophils Percent Manual 79 % (46-73); Platelet Estimate Adequate (Adequate); Schistocytes None Seen; Total Cells Counted 100
[2024-07-01] MEDS: FLUCONAZOLE 100 MG TABLET PO (09:53)
[2024-07-01] MEDS: predniSONE 20 MG TABLET 40 MG PO (09:53)
[2024-07-01] MEDS: DOCOSANOL 10% CREAM 2 GM 1 APPLIC TOPICAL ×5 (09:54→22:19)
[2024-07-01] MEDS: LORATADINE 10 MG TABLET PO (09:54)
[2024-07-01] MEDS: guaiFENesin 12 HR 600 MG TABCR PO ×2 (09:54→22:18)
[2024-07-01] MEDS: valACYclovir HCL 500 MG TABLET 1000 MG PO ×2 (09:54→22:18)
[2024-07-01] MEDS: SALINE 0.65% NAS SOLN 44 ML BTL 1 SPRAY NASAL ×2 (09:54→22:19)
--- NOTE | 2024-07-01 11:12 | P.PNIM_ITS ---
Progress Note: A&P Assessment and Plan (1) Acute respiratory failure with hypoxia: Code(s): J96.01 - Acute respiratory failure with hypoxia Status: Acute Assessment and Plan: Per chart review patient had an SpO2 80% upon check in to the ED, placed on 2L NC and oxygen saturations remain stable. - O2 requirement:off oxygen, Sa02 94% RA, baseline room air. Continue to wean as tolerating for SpO2 > 90%. - Suspected cause: pneumonia and concurrent asthma - CXR: bibasilar opacification more on the left side suggestive of pneumonia and highly suggestive opacity in the right upper lobe with destructive changes in the adjacent rib. - Chest CT: Suspected 10 x 13 mm right upper lobe bronchogenic carcinoma Emphysema Multifocal pulmonary infiltrates suggesting bilateral pneumonia - See plan below (2) Pneumonia: Code(s): J18.9 - Pneumonia, unspecified organism Status: Acute Assessment and Plan: - CXR: bibasilar opacification more on the left side suggestive of pneumonia and highly suggestive opacity in the right upper lobe with destructive changes in the adjacent rib. - Chest CT: Suspected 10 x 13 mm right upper lobe bronchogenic carcinoma Emphysema Multifocal pulmonary infiltrates suggesting bilateral pneumonia - Complicating Factors: asthma - started on CAP tx: azithromycin ceftriaxone on 06/24. Currently receiving Augmentin 875-125 mg 1 tablet oral BID. - Viral PCR: negative for Flu/COVID/RSV - Blood cultures obtained on 06/23: NGTD - O2 requirement: off oxygen, Sa02 95% RA, baseline room air. Continue to wean as tolerating for SpO2 > 90%. - Monitor vital signs, I&Os, neuro status and patient is a fall risk. - WBC trend 12.8>11.3>9.6>13.9>16.7>17.4. - Follow WBC, serum electrolytes, temperature curves and cultures. - Steroids oral taper. (3) Asthma: Qualifiers: Asthma severity: mild Asthma persistence: intermittent Asthma complication type: unspecified Qualified Code(s): J45.20 - Mild intermittent asthma, uncomplicated Code(s): J45.909 - Unspecified asthma, uncomplicated Status: Acute Assessment and Plan: - Oxygen requirement:2L NC, baseline room air. Continue to wean as tolerating for SpO2 > 90%. - Chest XR: bibasilar opacification more on the left side suggestive of pneumonia and highly suggestive opacity in the right upper lobe with destructive changes in the adjacent rib. - Chest CT: Suspected 10 x 13 mm right upper lobe bronchogenic carcinoma Emphysema Multifocal pulmonary infiltrates suggesting bilateral pneumonia - Current treatment: Budesonide 0.5mg inhaled q 12, Ipratropium 0.02% 0.5 mg inhaled QID, Salmetrol 1 puff q12, and steroids oral taper. 06/26: Continue to endorse wheezing, worse with ambulation. Wheezing unchanged on exam. 06/28: Continue wheezing and not feeling better. Pulmonology consulted. 06/29: Patient reports still wheezing alot and not feeling much better. 06/30: Patient reports feeling slightly better. 07/01: Patient reports breathing is a little better. (4) Mass of upper lobe of right lung: Code(s): R91.8 - Other nonspecific abnormal finding of lung field Status: Acute Assessment and Plan: Patient is aware of the nodule and this has been previously biopsied by her crisis manager. 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 - Chest XR: bibasilar opacification more on the left side suggestive of pneumonia and highly suggestive opacity in the right upper lobe with destructive changes in the adjacent rib. - Chest CT: Suspected 10 x 13 mm right upper lobe bronchogenic carcinoma - Continue outpatient follow up (5) Thrush, oral: Code(s): B37.0 - Candidal stomatitis Status: Acute Assessment and Plan: Mild thrush to the oral region likely from prolonged inhaler use. - Fluconazole 200 mg x1, then 100 mg daily - Monitor (6) Cold sore: Code(s): B00.1 - Herpesviral vesicular dermatitis Status: Acute Assessment and Plan: * Valacyclovir 1,000 mg PO q 12. * Patient is able to open left side of mouth better today. * Monitor site. Subjective Date/time seen: 07/01/24 11:12 Interval history: Patient reports that breathing is a little better and she is able to open the left side of her mouth a little more. Patient denies chest pain, palpitations, headache, dizziness, nausea, or vomiting. Review of Systems Review of Systems: All systems reviewed & are unremarkable except as noted in HPI and below Exam Const: General: comfortable and no acute distress Resp: Effort & Inspection: normal respiratory effort Auscultation: wheezes expiratory wheezes Other: Slightly diminished with better air movement. Cardio: Rate: regular rate Rhythm: regular rhythm GI: GI Palp: Yes Soft to palpation Auscultation: normal bowel sounds Skin: General skin exam: no rashes or lesions noted Neuro: Speech: normal speech Extrem: General: no pedal edema Psych: Mental Status: mental status grossly normal Affect: normal affect Objective Data Vital Signs Vital Signs: Vital Signs - 24 hr 06/30/24 12:05 06/30/24 12:05 06/30/24 12:10 Temperature Pulse Rate 77 82 Respiratory Rate 20 20 Blood Pressure Pulse Oximetry 95 Oxygen Delivery Room Air Fraction of Inspired Oxygen 06/30/24 14:00 06/30/24 15:40 06/30/24 15:40 Temperature 98.2 F Pulse Rate 88 84 Respiratory Rate 18 20 Blood Pressure 132/73 Pulse Oximetry 94 98 Oxygen Delivery Room Air Fraction of Inspired Oxygen 06/30/24 15:47 06/30/24 20:00 06/30/24 20:59 Temperature 97.5 F L Pulse Rate 88 88 69 Respiratory Rate 20 20 12 Blood Pressure 121/67 Pulse Oximetry 97 94 Oxygen Delivery Room Air Fraction of Inspired Oxygen 06/30/24 21:54 06/30/24 21:55 06/30/24 22:09 Temperature Pulse Rate 82 88 Respiratory Rate 20 20 Blood Pressure Pulse Oximetry 97 Oxygen Delivery Room Air Fraction of Inspired Oxygen 07/01/24 04:41 07/01/24 08:08 07/01/24 08:08 Temperature 96.9 F L Pulse Rate 71 80 Respiratory Rate 12 20 Blood Pressure 137/77 Pulse Oximetry 93 95 Oxygen Delivery Room Air Fraction of Inspired Oxygen 07/01/24 08:20 Temperature Pulse Rate 87 Respiratory Rate 20 Blood Pressure Pulse Oximetry Oxygen Delivery Fraction of Inspired Oxygen Intake/Output Intake/Output: Intake & Output 06/28/24 06/29/24 06/30/24 07/01/24 23:59 23:59 23:59 23:59 Intake Total 2960 2860 1615 1075 Balance 2960 2860 1615 1075 Meds/Results Medications: Active Medications Generic Name Dose Route Start Last Admin Trade Name Freq PRN Reason Stop Dose Admin Budesonide 0.5 mg 06/29/24 20:00 07/01/24 08:08 Budesonide Respule Neb 0.5 Mg/2 Ml Amp INHALATION 0.5 mg Q12HRT [facility] Administration Docosanol 1 applic 06/29/24 09:00 07/01/24 09:54 Docosanol 10% Cream 2 Gm TOPICAL 1 applic 5 TIMES DAILY [facility] Administration Enoxaparin Sodium 40 mg 06/25/24 09:00 07/01/24 09:54 Enoxaparin 40 Mg/0.4 Ml Syringe SUB-Q Not Given DAILY [facility] Fluconazole 100 mg 06/27/24 09:00 07/01/24 09:53 Fluconazole 100 Mg Tablet PO 07/02/24 09:00 100 mg QAM [facility] Administration Guaifenesin 600 mg 06/25/24 09:00 07/01/24 09:54 Guaifenesin 12 Hr 600 Mg Tabcr PO 600 mg Q12HR [facility] Administration Ipratropium [place] 0.5 mg 06/29/24 20:00 07/01/24 08:08 Ipratropium Br 0.02% Inh Soln 0.5 Mg/2.5 Ml Vial INHALATION 0.5 mg QIDRT [facility] Administration Loratadine 10 mg 06/25/24 09:00 07/01/24 09:54 Loratadine 10 Mg Tablet PO 10 mg QAM [facility] Administration Prednisone 40 mg 07/01/24 08:00 07/01/24 09:53 Prednisone 20 Mg Tablet PO 07/02/24 08:01 40 mg DAILY@0800 [facility] Administration Prednisone 30 mg 07/03/24 08:00 Prednisone 10 Mg Tablet PO 07/04/24 08:01 DAILY@0800 [facility] Prednisone 20 mg 07/05/24 08:00 Prednisone 20 Mg Tablet PO 07/06/24 08:01 DAILY@0800 [facility] Salmeterol Xinafoate 1 puff 06/29/24 20:00 07/01/24 08:20 Salmeterol Xinafoate 50 Mcg Diskus INHALATION 1 puff Q12HRT [facility] Administration Sodium Chloride 1 spray 06/27/24 21:00 07/01/24 09:54 Saline 0.65% Carlos Soln 44 Ml Btl NASAL 1 spray Q12HR [facility] Administration Valacyclovir HCl 1,000 mg 06/30/24 21:00 07/01/24 09:54 Valacyclovir Hcl 500 Mg Tablet PO 07/07/24 20:59 1,000 mg Q12HR [facility] Administration Radiology Results: ITS Impressions Chest X-Ray 06/23/24 21:55 IMPRESSION: Bibasilar opacification more on the left side suggestive of pneumonia. Highly suggestive opacity in the right upper lobe with destructive changes in the adjacent rib. CT evaluation is advised. Chest CT 06/24/24 10:13 IMPRESSION: Suspected 10 x 13 mm right upper lobe bronchogenic carcinoma Emphysema Multifocal pulmonary infiltrates suggesting bilateral pneumonia Labs Labs: Laboratory Results - last 24 hr 07/01/24 06:30 WBC 17.4 H RBC 4.16 L Hgb 13.0 Hct 39.1 MCV 94.0 MCH 31.3 MCHC 33.2 RDW 11.9 Plt Count 317 MPV 9.8 Immature Gran % (Auto) Not Reportable Neut % (Auto) Not Reportable Lymph % (Auto) Not Reportable [place] % (Auto) Not Reportable Eos % (Auto) Not Reportable Baso % (Auto) Not Reportable Lymph # (Auto) Not Reportable [place] # (Auto) Not Reportable Eos # (Auto) Not Reportable Baso # (Auto) Not Reportable Abs Immat Gran (auto) Not Reportable Absolute Neuts (auto) Not Reportable Absolute Nucleated RBC Not Reportable Total Counted 100 Neutrophils % (Manual) 79 H Band Neutrophils % 6 Lymphocytes % (Manual) 7.0 L Monocytes % (Manual) 8 Nucleated RBC % Not Reportable Abs Neuts (Manual) 14.79 H Abs Lymphs (Manual) 1.21 Abs Monocytes (Manual) 1.39 H Platelet Estimate Adequate Schistocytes None seen Sodium 134 L Potassium 4.2 Chloride 99 Carbon Dioxide 34 H Anion Gap 1 L BUN 23 H Creatinine 0.78 Estim Creat Clear Calc 45 Estimated GFR > 60 Glucose 73 Calcium 7.9 L Total Bilirubin 0.4 AST 24 ALT 47 H Alkaline Phosphatase 81 Total Protein 5.0 L Albumin 2.9 L Quality VTE Prophylaxis VTE prophylaxis: pharmacologic ordered
[2024-07-01] MEDS: AMOXICILLIN/CLAVULANATE K 875-125 MG TAB 1 TABLET PO (22:18)
[2024-07-02 04:48] VITALS: BP 125/69; PULSE 70; RESP 12; TEMP 36.3; O2SAT 96
[2024-07-02 07:07] LABS: Basophils Absolute Auto 0.1 K/mm3 (0.0-0.1); Basophils Percent Auto 0.7 % (0.2-1.2); Eosinophils Absolute Auto 0.1 K/mm3 (0-0.3); Eosinophils Percent Auto 0.4 % (0-4.4); Hematocrit 40.7 % (37.0-47.0); Hemoglobin 13.4 g/dL (12.0-15.0); Immature Granulocyte Absolute 1.42 K/mm3 (0.00-0.031); Immature Granulocyte Percent A 7.8 % (0-0.5); Lymphocytes Absolute Auto 2.49 K/mm3 (0.9-3.2); Lymphocytes Percent Auto 13.7 % (18.3-44.2); Mean Corpuscular HGB Conc 32.9 g/dl (32-36); Mean Corpuscular Hemoglobin 31.5 pg (26-34); Mean Corpuscular Volume 95.8 fl (80-100); Mean Platelet Volume 9.8 fl (7.4-10.4); Monocytes Absolute Auto 1.2 K/mm3 (0.1-0.6); Monocytes Percent Auto 6.6 % (2.6-8.5); Neutrophils Absolute Auto 12.8 K/mm3 (1.3-6.7); Neutrophils Percent Auto 70.8 % (45.5-73.1); Platelet Count Result 287 k/mm3 (150-375); Red Blood Count 4.25 M/mm3 (4.2-5.4); Red Cell Distribution Width 12.1 % (11.5-14.5); White Blood Count 18.1 K/mm3 (4.5-10.0)
[2024-07-02 08:00] VITALS: PULSE 70; RESP 18; O2SAT 97
[2024-07-02 08:00] LABS: Alanine Aminotransferase 44 U/L (6-35); Albumin Level 2.9 g/dL (3.5-5.1); Alkaline Phosphatase 85 U/L (38-126); Anion Gap 1 mmol/L (4-12); Aspartate Amino Transferase 23 U/L (14-36); Bilirubin,Total 0.4 mg/dL (0.2-1.3); Blood Urea Nitrogen 21 mg/dL (7-17); Calcium 8.3 mg/dL (8.4-10.2); Carbon Dioxide 36 mmol/L (22-30); Chloride 99 mmol/L (98-107); Estimated CRCL calculation 46 ml/min; Estimated Glomerular Filt Rate > 60; Glucose 67 mg/dL (65-110); Potassium 4.5 mmol/L (3.4-5.0); Sodium 136 mmol/L (137-145)
[2024-07-02] MEDS: SALMETEROL XINAFOATE 50 MCG DISKUS 1 PUFF INHALATION (08:01)
[2024-07-02 08:02] VITALS: RESP 18; O2SAT 97
[2024-07-02] MEDS: IPRATROPIUM BR 0.02% INH SOLN 0.5 MG/2.5 ML VIAL INHALATION (08:02)
[2024-07-02] MEDS: BUDESONIDE RESPULE NEB 0.5 MG/2 ML AMP INHALATION (08:02)
[2024-07-02] MEDS: guaiFENesin 12 HR 600 MG TABCR PO (09:06)
[2024-07-02] MEDS: LORATADINE 10 MG TABLET PO (09:06)
[2024-07-02] MEDS: valACYclovir HCL 500 MG TABLET 1000 MG PO ×2 (09:06→21:03)
[2024-07-02] MEDS: AMOXICILLIN/CLAVULANATE K 875-125 MG TAB 1 TABLET PO ×2 (09:06→21:03)
[2024-07-02] MEDS: predniSONE 20 MG TABLET 40 MG PO (09:06)
[2024-07-02] MEDS: DOCOSANOL 10% CREAM 2 GM 1 APPLIC TOPICAL ×5 (09:07→21:03)
[2024-07-02] MEDS: FLUCONAZOLE 100 MG TABLET PO (09:07)
[2024-07-02] MEDS: SALINE 0.65% NAS SOLN 44 ML BTL 1 SPRAY NASAL ×2 (09:07→21:04)
--- NOTE | 2024-07-02 10:08 | PCNWS ---
Weekly nutritional screen. Patient is tolerating current regular diet with adequate intake 75-100%. No weight loss reported. No nutritional recommendations at this time.
--- NOTE | 2024-07-02 11:51 | P.PNIM_ITS ---
Progress Note: A&P Assessment and Plan (1) Acute respiratory failure with hypoxia: Code(s): J96.01 - Acute respiratory failure with hypoxia Status: Acute Assessment and Plan: Per chart review patient had an SpO2 80% upon check in to the ED, placed on 2L NC and oxygen saturations remain stable. - O2 requirement:off oxygen, Sa02 94% RA, baseline room air. Continue to wean as tolerating for SpO2 > 90%. - Suspected cause: pneumonia and concurrent asthma - CXR: bibasilar opacification more on the left side suggestive of pneumonia and highly suggestive opacity in the right upper lobe with destructive changes in the adjacent rib. - Chest CT: Suspected 10 x 13 mm right upper lobe bronchogenic carcinoma Emphysema Multifocal pulmonary infiltrates suggesting bilateral pneumonia - See plan below (2) Pneumonia: Code(s): J18.9 - Pneumonia, unspecified organism Status: Acute Assessment and Plan: - CXR: bibasilar opacification more on the left side suggestive of pneumonia and highly suggestive opacity in the right upper lobe with destructive changes in the adjacent rib. - Chest CT: Suspected 10 x 13 mm right upper lobe bronchogenic carcinoma Emphysema Multifocal pulmonary infiltrates suggesting bilateral pneumonia - Complicating Factors: asthma - started on CAP tx: azithromycin ceftriaxone on 06/24. Currently receiving Augmentin 875-125 mg 1 tablet oral BID. - Viral PCR: negative for Flu/COVID/RSV - Blood cultures obtained on 06/23: NGTD - O2 requirement: off oxygen, Sa02 95% RA, baseline room air. Continue to wean as tolerating for SpO2 > 90%. - Monitor vital signs, I&Os, neuro status and patient is a fall risk. - WBC trend 12.8>11.3>9.6>13.9>16.7>17.4>18.1 - Follow WBC, serum electrolytes, temperature curves and cultures. - Steroids oral taper. (3) Asthma: Qualifiers: Asthma complication type: unspecified Asthma persistence: intermittent Asthma severity: mild Qualified Code(s): J45.20 - Mild intermittent asthma, uncomplicated Code(s): J45.909 - Unspecified asthma, uncomplicated Status: Acute Assessment and Plan: - Oxygen requirement:2L NC, baseline room air. Continue to wean as tolerating for SpO2 > 90%. - Chest XR: bibasilar opacification more on the left side suggestive of pneumonia and highly suggestive opacity in the right upper lobe with destructive changes in the adjacent rib. - Chest CT: Suspected 10 x 13 mm right upper lobe bronchogenic carcinoma Emphysema Multifocal pulmonary infiltrates suggesting bilateral pneumonia - Current treatment: Budesonide 0.5mg inhaled q 12, Ipratropium 0.02% 0.5 mg inhaled QID, Salmetrol 1 puff q12, and steroids oral taper. 06/26: Continue to endorse wheezing, worse with ambulation. Wheezing unchanged on exam. 06/28: Continue wheezing and not feeling better. Pulmonology consulted. 06/29: Patient reports still wheezing alot and not feeling much better. 06/30: Patient reports feeling slightly better. 07/01: Patient reports breathing is a little better. 07/02: Told pulmonology feeling a little worse. Nebs and salmetrol discontinued. Patient started on Incruse and Advair. (4) Mass of upper lobe of right lung: Code(s): R91.8 - Other nonspecific abnormal finding of lung field Status: Acute Assessment and Plan: Patient is aware of the nodule and this has been previously biopsied by her cost recorder. 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 - Chest XR: bibasilar opacification more on the left side suggestive of pneumonia and highly suggestive opacity in the right upper lobe with destructive changes in the adjacent rib. - Chest CT: Suspected 10 x 13 mm right upper lobe bronchogenic carcinoma - Continue outpatient follow up (5) Thrush, oral: Code(s): B37.0 - Candidal stomatitis Status: Acute Assessment and Plan: Mild thrush to the oral region likely from prolonged inhaler use. - Fluconazole 200 mg x1, then 100 mg daily - Monitor (6) Cold sore: Code(s): B00.1 - Herpesviral vesicular dermatitis Status: Acute Assessment and Plan: * Valacyclovir 1,000 mg PO q 12. * Patient is able to open left side of mouth better today. * Monitor site. Subjective Date/time seen: 07/02/24 11:51 Interval history: Patient up walking around room. Patient reports that her mouth is feeling better. Patient reports that she is still having wheezing. Patient denies chest pain, palpitations, shortness of breath, headache, dizziness, nausea, or vomiting. at bedside. Review of Systems Review of Systems: All systems reviewed & are unremarkable except as noted in HPI and below Exam Const: General: comfortable and no acute distress Resp: Effort & Inspection: normal respiratory effort Auscultation: wheezes expiratory wheezes (end) Cardio: Rate: regular rate Rhythm: regular rhythm GI: GI Palp: Yes Soft to palpation Auscultation: normal bowel sounds Neuro: Speech: normal speech Extrem: General: no pedal edema Psych: Mental Status: mental status grossly normal Affect: normal affect Objective Data Vital Signs Vital Signs: Vital Signs - 24 hr 07/01/24 12:19 07/01/24 12:19 07/01/24 12:27 Temperature Pulse Rate 87 82 Respiratory Rate 20 20 Blood Pressure Pulse Oximetry 96 Oxygen Delivery Room Air Fraction of Inspired Oxygen 21 07/01/24 14:00 07/01/24 15:07 07/01/24 15:07 Temperature 97.5 F L Pulse Rate 83 80 Respiratory Rate 18 20 Blood Pressure 116/84 Pulse Oximetry 93 93 Oxygen Delivery Room Air Fraction of Inspired Oxygen 21 07/01/24 15:12 07/01/24 19:54 07/01/24 20:00 Temperature 97.4 F L Pulse Rate 78 79 77 Respiratory Rate 20 12 18 Blood Pressure 129/71 Pulse Oximetry 96 97 Oxygen Delivery Room Air Fraction of Inspired Oxygen 21 07/01/24 20:24 07/01/24 20:24 07/01/24 20:31 Temperature Pulse Rate 76 77 Respiratory Rate 18 18 Blood Pressure Pulse Oximetry 97 Oxygen Delivery Room Air Fraction of Inspired Oxygen 07/02/24 04:48 07/02/24 08:02 07/02/24 08:02 Temperature 97.4 F L Pulse Rate 70 Respiratory Rate 12 18 Blood Pressure 125/69 Pulse Oximetry 96 97 Oxygen Delivery Room Air Fraction of Inspired Oxygen Intake/Output Intake/Output: Intake & Output 06/29/24 06/30/24 07/01/24 07/02/24 23:59 23:59 23:59 23:59 Intake Total 2860 8587 2440 615 Balance 2860 7965 6042 572 Meds/Results Medications: Active Medications Generic Name Dose Route Start Last Admin Trade Name Freq PRN Reason Stop Dose Admin Amoxicillin/Clavulanate Potassium 1 tablet 07/01/24 21:00 07/02/24 09:06 Amoxicillin/Clavulanate K 875-125 Mg Tab PO 07/04/24 20:59 1 tablet Q12HR [facility] Administration Docosanol 1 applic 06/29/24 09:00 07/02/24 09:07 Docosanol 10% Cream 2 Gm TOPICAL 1 applic 5 TIMES DAILY [facility] Administration Enoxaparin Sodium 40 mg 06/25/24 09:00 07/01/24 09:54 Enoxaparin 40 Mg/0.4 Ml Syringe SUB-Q Not Given DAILY [facility] Guaifenesin 1,200 mg 07/02/24 21:00 Guaifenesin 12 Hr 600 Mg Tabcr PO Q12HR [facility] Loratadine 10 mg 06/25/24 09:00 07/02/24 09:06 Loratadine 10 Mg Tablet PO 10 mg QAM [facility] Administration Prednisone 30 mg 07/03/24 08:00 Prednisone 10 Mg Tablet PO 07/04/24 08:01 DAILY@0800 [facility]ES [facility] Prednisone 20 mg 07/05/24 08:00 Prednisone 20 Mg Tablet PO 07/06/24 08:01 DAILY@0800 [facility]ES [facility] Fluticasone/Salmeterol 2 puff 07/02/24 10:50 Fluticasone/Salmeterol 230-21 Mcg Inhaler 1 Puff INHALATION Q12HRT [facility] Sodium Chloride 1 spray 06/27/24 21:00 07/02/24 09:07 Saline 0.65% Carlos Soln 44 Ml Btl NASAL 1 spray Q12HR [facility] Administration Umeclidinium [place] 1 puff 07/02/24 10:45 Umeclidinium [place] 62.5 Mcg Ellipta INHALATION DAILYRT COUNT [facility]CLUDES [facility] Valacyclovir HCl 1,000 mg 06/30/24 21:00 07/02/24 09:06 Valacyclovir Hcl 500 Mg Tablet PO 07/07/24 20:59 1,000 mg Q12HR [facility] Administration Radiology Results: ITS Impressions Chest X-Ray 06/23/24 21:55 IMPRESSION: Bibasilar opacification more on the left side suggestive of pneumonia. Highly suggestive opacity in the right upper lobe with destructive changes in the adjacent rib. CT evaluation is advised. Chest CT 06/24/24 10:13 IMPRESSION: Suspected 10 x 13 mm right upper lobe bronchogenic carcinoma Emphysema Multifocal pulmonary infiltrates suggesting bilateral pneumonia Labs Labs: Laboratory Results - last 24 hr 07/02/24 06:53 WBC 18.1 H RBC 4.25 Hgb 13.4 Hct 40.7 MCV 95.8 MCH 31.5 MCHC 32.9 RDW 12.1 Plt Count 287 MPV 9.8 Immature Gran % (Auto) 7.8 H Neut % (Auto) 70.8 Lymph % (Auto) 13.7 L [place] % (Auto) 6.6 Eos % (Auto) 0.4 Baso % (Auto) 0.7 Lymph # (Auto) 2.49 [place] # (Auto) 1.2 H Eos # (Auto) 0.1 Baso # (Auto) 0.1 Abs Immat Gran (auto) 1.42 H Absolute Neuts (auto) 12.8 H Absolute Nucleated RBC 0.000 Nucleated RBC % 0.0 Sodium 136 L Potassium 4.5 Chloride 99 Carbon Dioxide 36 H Anion Gap 1 L BUN 21 H Creatinine 0.76 Estim Creat Clear Calc 46 Estimated GFR > 60 Glucose 67 Calcium 8.3 L Total Bilirubin 0.4 AST 23 ALT 44 H Alkaline Phosphatase 85 Total Protein 5.0 L Albumin 2.9 L Quality VTE Prophylaxis VTE prophylaxis: pharmacologic ordered
[2024-07-02 14:00] VITALS: BP 111/68; PULSE 78; RESP 20; TEMP 36.4; O2SAT 95
--- NOTE | 2024-07-02 14:17 | PM.PNPUL ---
Progress Note: A&P Assessment and Plan (1) Multifocal pneumonia: Code(s): J18.9 - Pneumonia, unspecified organism Status: Acute Assessment and Plan: 06/23/[address] : anteromedial right mid lung. There is tree-in-bud infiltrate in the posteromedial right upper lobe and anterolateral right upper lobe and the lingula. Scattered multifocal mild right lower lobe tree-in-bud infiltrate. She had yellow sputum before admission, this has resolved. WBC is lower, was 19 K, now 9 k. She is on oral antibiotics, IV Rocephin and Levaquin stopped, now on Amoxicillin and oral Levaquin. Started oral prednisone. Her saturation is 94%, room air; does not need walk study before discharge. 06/29/24: plan: It is possible that she had a negative PCR swab for RSV, influenza A/B, and COVID, with a false negative. We have seen this on extended respiratory pathogen panel. If she has RSV, she will cough amd wheeze for a couple of months. I gave her written information to call her insurance company, see if she can get arformoterol / budesonide bid & ipratropium tid with prn albuterol for her nebulizer; stop Trelegy / Breztri as she cannot afford this. Cost is becoming a more difficult issue all the time. She would benefit from RSV vaccination. 07/02/2024: overall the patient tells me she feels better than she was admitted. She feels tight and has more wheezing than yesterday. Her cough is better and dry 85-90% back to her baseline. She has no hemoptysis. Room air saturations 96%. White blood cell count 18.1, creatinine 0.76. She is afebrile. Currently the patient is on Augmentin 875-125 b.i.d.. She is also on [place] acyclovir for a fever blister and fluconazole for thrush. Plan: Continue Augmentin, day 9 total antibiotics. Last dose of Augmentin on 07/04/2024. I suspect this is a viral infection and her repeat COVID, influenza RSV was negative. I will send an extended respiratory pathogen panel to [facility]. Both her fever blister and thrush are improving. Discussed with Franci Luna, will follow with you. (2) Pulmonary nodule: Code(s): R91.1 - Solitary pulmonary nodule Status: Acute Assessment and Plan: 06/29/2024: this has been on her chest CT since 2021, was biopsied, benign; caseating granulomas. (3) Asthma-COPD overlap syndrome: Code(s): J44.89 - Other specified chronic obstructive pulmonary disease Status: Acute Assessment and Plan: She has exacerbation of symptoms in the setting of multifocal pneumonia. She has less sputum now, dose not need O2 at rest. She has severe airflow obstruction. She has no elevated eosinophils on any prior testing. Quit smoking cigarettes years ago, smoked at most 1 ppd for 20 years. 06/29/24: plan: continue current treatment; continue Cornet valve, 3% saline, pulmonary hygiene to clear secretions Peak flow monitoring; Peak flow today is 250 L/min, still in the yellow zone. controller meds here in hospital : 1. budesonide 15 mcg/2 ml bid, 2. Serevent 50 mcg one puff bid; pharmacist Usman garcia, said that Serevent is not going to be an affordable medication in the real world. 3. ipratropium 0.5 mg qid nebulized 4. Albuterol 2.5 mg nebulized once a day She can still carry albuterol with her as an inhaler for p.r.n. rescue use at home. No vital signs overnight to allow her to sleep. She is eligible for a free Part D plan as she is over 65 years old, she does not have a Part D plan now, that she is aware of; she can find a formulary optional to work for her. I talked with her about this, and her family was at the bedside. Oral antibiotics, peak flow monitoring, jose at home, asthma action plan so she has an idea what to do when she deteriorates at home; Amoxicillin and azithromycin. She had an echo a year ago; if she continues to wheeze, will repeat. 07/02/2024: Patient still feels tight despite day 9 of a prednisone taper. She is on budesonide 0.5 mg q.12 hours, ipratropium nebulizers q.i.d., Serevent inhaler. She remains on room air. Patient was on trilogy with good control but this was too expensive. Patient tells me she was switched over to breztri and this did not control her as well. Plan: I will change the patient to Incruse Ellipta 62.5 at 1 puff q.day, Advair 230-21 at 2 puffs q.12 hours. Continue guaifenesin but will increase the dose to 1200 mg p.o. q.12 hours. Continue her prednisone taper with 30 mg for 2 more days then 20 mg for 2 days. If this is a respiratory viral infection she may remain symptomatic for weeks to months. Will follow her clinically. Subjective Date/time seen: 07/02/24 14:17 Interval history: 06/28/24, new consult; Awa Stringer is a 68 year old woman who has asthma-COPD overlap, admitted June 23 with increasing shortness of breath and low oxygen saturation at home. She is not on home oxygen. On arrival saturation was 80%. She has a history of asthma, and has had asthma exacerbations typically in June. She was using nebulized albuterol but it was not helping over the last day or so. She improved on O2 at 2 L/minute. She is now on room air, feels better however she is still have wheezing, jose with exertion. Her procalcitonin was 0.1 on Jun 21. WBC was high 19.4, came down to 9.6. She is seen in our practice, last visit was 11/22/23; she says that she felt that she was getting sick, called the office to get antibiotics at the end of May; when she took the azithromycin, she felt better, however deteriorated. She had a similar episode last June. She was using Breztri and Trelegy, alternating samples from out office as she cannot qualify for patient assistance, and the cost is too high. She thinks that Trelegy worked better, but these are both expensive. 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 She has albuterol and ipratropium solution every 4 hours in her home nebulizer in the days before admission. She had thick yellow sputum, increased shortness of breath, increased right nasal blockage at night, a problem for years. She does not spend much time in public places, was not around any sick contacts before this happened. She had thrush recently, improved on oral meds, and she had recurrence of cold sore on left side of her mouth with this episode of pneumonia. Vaccination: Had pneumonia vaccination 2 years ago, completed 2 COVID vax, will not take more. Had influenza vaccination. Triggers: for asthma, triggers include mostly fragrance; weather changes, molds, cats, and increased wheezing after getting infections. She has a peak flow meter, has it with her today. does not use it at home. She checks her saturation at home, always in the mid 90% range. 06/29/24: She says that she is still wheezing. She has the Cornet valve, used it w 3% saline, and secretions seem to be moving. Mag level was 2.4 today, great, does not need IV mag supplementation. She had an echo a year ago, EF 50-55% and small PFO. I ordered Abreva for her cold sore, much better. She is eating well. Not sleeping well because of night time interruptions, noise. 07/02/24: overall the patient tells me she feels better than she was admitted. She feels tight and has more wheezing than yesterday. Her cough is better and dry 85-90% back to her baseline. She has no hemoptysis. Room air saturations 96%. White blood cell count 18.1, creatinine 0.76. She is afebrile. DATA * alpha-1 = MM, normal genotype. * 06/24/[address] : There is a 10 x 13 mm mass in the right upper lobe likely due to bronchogenic carcinoma. Bilateral hyperinflation/emphysema. There is focal infiltrate and/atelectasis is noted involving the anteromedial right mid lung. There is tree-in-bud infiltrate in the posteromedial right upper lobe and anterolateral right upper lobe and the lingula. Scattered multifocal mild right lower lobe tree-in-bud infiltrate. Normal heart size. No pericardial or pleural effusion. No thoracic aortic aneurysm or dissection. No hilar or mediastinal mass lesion or lymphadenopathy. Small sliding hiatal hernia Normal morphology of the adrenal glands. Included upper abdominal structures are unremarkable. No suspicious osteolytic or osteoblastic lesions are noted. IMPRESSION: Suspected 10 x 13 mm right upper lobe bronchogenic carcinoma Emphysema Multifocal pulmonary infiltrates suggesting bilateral pneumonia 06/20/23: Left ventricular chamber dimension is normal. 2. Left ventricular systolic function is normal, estimated at 50-55%. 3. The left ventricular diastolic function is grade I diastolic dysfunction. 4. Right ventricular systolic function is normal. 5. Bubble study shows small right to left shunt, consistent with PFO. 6. There is trace mitral valve regurgitation. 7. There is trace tricuspid valve regurgitation. Review of Systems Constitutional: Constitutional: Reports no additional constitutional complaints Eyes: Eyes: Reports no additional eye complaints ENT: Reports system reviewed and no additional complaints, except as documented Cardiovascular: Cardiovascular: Reports no additional cardiovascular complaints Respiratory: Respiratory: Reports no additional respiratory complaints Gastrointestinal: Gastrointestinal: Reports no additional gastrointestinal complaints Musculoskeletal: Musculoskeletal: Reports no additional musculoskeletal complaints Neurologic: Reports system reviewed and no additional complaints, except as documented Psychiatric: Psychiatric: Reports no additional psychiatric complaints Endocrine: Endocrine: Reports no additional endocrine complaints Hematologic/Lymphatic: Hematologic/Lymphatic: Reports no additional hematologic/lymphatic complaints Allergic/Immunologic: Allergic/Immunologic: Reports no additional allergic/immunologic complaints Exam Const: General: cooperative, healthy appearing and comfortable Orientation/consciousness: oriented to person, oriented to place and oriented to time HENMT: Head: normal to inspection Ears: hearing grossly normal bilaterally Eyes: General: appearance normal, both eyes and all related structures Neck: Neck: normal visual inspection Chest: Chest palpation & inspection: normal inspection of the chest Resp: Effort & Inspection: normal respiratory effort and able to speak in complete sentences Auscultation: no crackles, no rales, no rhonchi, wheezes and lung sounds not diminished Other: end expiratory wheezes Cardio: Jugular venous distension: no JVD GI: Inspection: normal to inspection GI Palp: No abdominal tenderness Skin: General skin exam: normal color Neuro: General: oriented to person, oriented to place and oriented to time Extrem: General: normal to inspection Psych: Appearance: grossly normal Objective Data Vital Signs Vital Signs: Vital Signs - 24 hr 07/01/24 15:07 07/01/24 15:07 07/01/24 15:12 Temperature Pulse Rate 80 78 Respiratory Rate 20 20 Blood Pressure Pulse Oximetry 93 Oxygen Delivery Room Air Fraction of Inspired Oxygen 21 07/01/24 19:54 07/01/24 20:00 07/01/24 20:24 Temperature 36.3 C L Pulse Rate 79 77 Respiratory Rate 12 18 Blood Pressure 129/71 Pulse Oximetry 96 97 97 Oxygen Delivery Room Air Room Air Fraction of Inspired Oxygen 21 07/01/24 20:24 07/01/24 20:31 07/02/24 04:48 Temperature 36.3 C L Pulse Rate 76 77 70 Respiratory Rate 18 18 12 Blood Pressure 125/69 Pulse Oximetry 96 Oxygen Delivery Fraction of Inspired Oxygen 07/02/24 08:00 07/02/24 08:02 07/02/24 08:02 Temperature Pulse Rate 70 Respiratory Rate 18 18 Blood Pressure Pulse Oximetry 97 97 Oxygen Delivery Room Air Room Air Fraction of Inspired Oxygen 21 Intake/Output Intake/Output: Intake & Output 06/29/24 06/30/24 07/01/24 07/02/24 23:59 23:59 23:59 23:59 Intake Total 2860 1615 2710 615 Balance 2860 1615 2710 615 Meds/Results Medications: Active Medications Generic Name Dose Route Start Last Admin Trade Name Freq PRN Reason Stop Dose Admin Amoxicillin/Clavulanate Potassium 1 tablet 07/01/24 21:00 07/02/24 09:06 Amoxicillin/Clavulanate K 875-125 Mg Tab PO 07/04/24 20:59 1 tablet Q12HR [facility] Administration Docosanol 1 applic 06/29/24 09:00 07/02/24 09:07 Docosanol 10% Cream 2 Gm TOPICAL 1 applic 5 TIMES DAILY [facility] Administration Enoxaparin Sodium 40 mg 06/25/24 09:00 07/01/24 09:54 Enoxaparin 40 Mg/0.4 Ml Syringe SUB-Q Not Given DAILY [facility] Guaifenesin 1,200 mg 07/02/24 21:00 Guaifenesin 12 Hr 600 Mg Tabcr PO Q12HR NICOLE Loratadine 10 mg 06/25/24 09:00 07/02/24 09:06 Loratadine 10 Mg Tablet PO 10 mg QAM NICOLE Administration Prednisone 30 mg 07/03/24 08:00 Prednisone 10 Mg Tablet PO 07/04/24 08:01 DAILY@0800 NICOLE Prednisone 20 mg 07/05/24 08:00 Prednisone 20 Mg Tablet PO 07/06/24 08:01 DAILY@0800 [facility] Fluticasone/Salmeterol 2 puff 07/02/24 10:50 Fluticasone/Salmeterol 230-21 Mcg Inhaler 1 Puff INHALATION Q12HRT [facility] Sodium Chloride 1 spray 06/27/24 21:00 07/02/24 09:07 Saline 0.65% Carlos Soln 44 Ml Btl NASAL 1 spray Q12HR NICOLE Administration Umeclidinium [place] 1 puff 07/02/24 10:45 Umeclidinium [place] 62.5 Mcg Ellipta INHALATION DAILYRT [facility] Valacyclovir HCl 1,000 mg 06/30/24 21:00 07/02/24 09:06 Valacyclovir Hcl 500 Mg Tablet PO 07/07/24 20:59 1,000 mg Q12HR NICOLE Administration Radiology Results: ITS Impressions Chest X-Ray 06/23/24 21:55 IMPRESSION: Bibasilar opacification more on the left side suggestive of pneumonia. Highly suggestive opacity in the right upper lobe with destructive changes in the adjacent rib. CT evaluation is advised. Chest CT 06/24/24 10:13 IMPRESSION: Suspected 10 x 13 mm right upper lobe bronchogenic carcinoma Emphysema Multifocal pulmonary infiltrates suggesting bilateral pneumonia Labs Labs: Laboratory Results - last 24 hr 07/02/24 06:53 WBC 18.1 H RBC 4.25 Hgb 13.4 Hct 40.7 MCV 95.8 MCH 31.5 MCHC 32.9 RDW 12.1 Plt Count 287 MPV 9.8 Immature Gran % (Auto) 7.8 H Neut % (Auto) 70.8 Lymph % (Auto) 13.7 L [place] % (Auto) 6.6 Eos % (Auto) 0.4 Baso % (Auto) 0.7 Lymph # (Auto) 2.49 [place] # (Auto) 1.2 H Eos # (Auto) 0.1 Baso # (Auto) 0.1 Abs Immat Gran (auto) 1.42 H Absolute Neuts (auto) 12.8 H Absolute Nucleated RBC 0.000 Nucleated RBC % 0.0 Sodium 136 L Potassium 4.5 Chloride 99 Carbon Dioxide 36 H Anion Gap 1 L BUN 21 H Creatinine 0.76 Estim Creat Clear Calc 46 Estimated GFR > 60 Glucose 67 Calcium 8.3 L Total Bilirubin 0.4 AST 23 ALT 44 H Alkaline Phosphatase 85 Total Protein 5.0 L Albumin 2.9 L
[2024-07-02] MEDS: FLUTICASONE/SALMETEROL 230-21 MCG INHALER 1 PUFF 2 PUFF INHALATION (19:55)
[2024-07-02 20:00] VITALS: PULSE 80; RESP 18; O2SAT 95
[2024-07-02] MEDS: guaiFENesin 12 HR 600 MG TABCR 1200 MG PO (21:03)
[2024-07-02 21:12] VITALS: BP 135/67; PULSE 74; RESP 16; TEMP 36.6; O2SAT 95
[2024-07-03 05:19] VITALS: BP 121/71; PULSE 70; RESP 14; TEMP 37; O2SAT 96
[2024-07-03 06:43] LABS: Basophils Absolute Auto 0.1 K/mm3 (0.0-0.1); Basophils Percent Auto 0.5 % (0.2-1.2); Eosinophils Absolute Auto 0.1 K/mm3 (0-0.3); Eosinophils Percent Auto 0.2 % (0-4.4); Hematocrit 41.1 % (37.0-47.0); Hemoglobin 13.3 g/dL (12.0-15.0); Immature Granulocyte Absolute 1.22 K/mm3 (0.00-0.031); Immature Granulocyte Percent A 5.9 % (0-0.5); Lymphocytes Absolute Auto 2.51 K/mm3 (0.9-3.2); Lymphocytes Percent Auto 12.2 % (18.3-44.2); Mean Corpuscular HGB Conc 32.4 g/dl (32-36); Mean Corpuscular Hemoglobin 31.1 pg (26-34); Mean Corpuscular Volume 96.3 fl (80-100); Mean Platelet Volume 9.7 fl (7.4-10.4); Monocytes Absolute Auto 1.1 K/mm3 (0.1-0.6); Monocytes Percent Auto 5.1 % (2.6-8.5); Neutrophils Absolute Auto 15.7 K/mm3 (1.3-6.7); Neutrophils Percent Auto 76.1 % (45.5-73.1); Platelet Count Result 320 k/mm3 (150-375); Red Blood Count 4.27 M/mm3 (4.2-5.4); Red Cell Distribution Width 12.1 % (11.5-14.5); White Blood Count 20.6 K/mm3 (4.5-10.0)
[2024-07-03 06:54] LABS: Alanine Aminotransferase 46 U/L (6-35); Alkaline Phosphatase 92 U/L (38-126); Anion Gap 1 mmol/L (4-12); Aspartate Amino Transferase 24 U/L (14-36); Bilirubin,Total 0.4 mg/dL (0.2-1.3); Blood Urea Nitrogen 21 mg/dL (7-17); Calcium 8.1 mg/dL (8.4-10.2); Carbon Dioxide 32 mmol/L (22-30); Chloride 100 mmol/L (98-107); Estimated CRCL calculation 47 ml/min; Estimated Glomerular Filt Rate > 60; Glucose 98 mg/dL (65-110); Potassium 4.4 mmol/L (3.4-5.0); Sodium 133 mmol/L (137-145)
[2024-07-03 07:40] LABS: Atypical Lymphocytes Present; Platelet Estimate Adequate (Adequate); Schistocytes None Seen
[2024-07-03] MEDS: UMECLIDINIUM BROMIDE 62.5 MCG ELLIPTA 1 PUFF INHALATION (07:48)
[2024-07-03] MEDS: FLUTICASONE/SALMETEROL 230-21 MCG INHALER 1 PUFF 2 PUFF INHALATION (07:49)
[2024-07-03 07:57] LABS: NT Pro B Type Natriuretic Pept 233 pg/mL (19.9-100)
[2024-07-03] MEDS: guaiFENesin 12 HR 600 MG TABCR 1200 MG PO (07:57)
[2024-07-03] MEDS: predniSONE 10 MG TABLET 30 MG PO (07:57)
[2024-07-03] MEDS: AMOXICILLIN/CLAVULANATE K 875-125 MG TAB 1 TABLET PO (07:58)
[2024-07-03] MEDS: DOCOSANOL 10% CREAM 2 GM 1 APPLIC TOPICAL ×2 (07:58→12:10)
[2024-07-03] MEDS: SALINE 0.65% NAS SOLN 44 ML BTL 1 SPRAY NASAL (07:58)
[2024-07-03] MEDS: LORATADINE 10 MG TABLET PO (07:58)
[2024-07-03] MEDS: valACYclovir HCL 500 MG TABLET 1000 MG PO (07:59)
--- NOTE | 2024-07-03 10:02 | PM.PNPUL ---
Progress Note: A&P Assessment and Plan (1) Multifocal pneumonia: Code(s): J18.9 - Pneumonia, unspecified organism Status: Acute Assessment and Plan: 06/23/[address] : anteromedial right mid lung. There is tree-in-bud infiltrate in the posteromedial right upper lobe and anterolateral right upper lobe and the lingula. Scattered multifocal mild right lower lobe tree-in-bud infiltrate. She had yellow sputum before admission, this has resolved. WBC is lower, was 19 K, now 9 k. She is on oral antibiotics, IV Rocephin and Levaquin stopped, now on Amoxicillin and oral Levaquin. Started oral prednisone. Her saturation is 94%, room air; does not need walk study before discharge. 06/29/24: plan: It is possible that she had a negative PCR swab for RSV, influenza A/B, and COVID, with a false negative. We have seen this on extended respiratory pathogen panel. If she has RSV, she will cough amd wheeze for a couple of months. I gave her written information to call her insurance company, see if she can get arformoterol / budesonide bid & ipratropium tid with prn albuterol for her nebulizer; stop Trelegy / Breztri as she cannot afford this. Cost is becoming a more difficult issue all the time. She would benefit from RSV vaccination. 07/02/2024: overall the patient tells me she feels better than she was admitted. She feels tight and has more wheezing than yesterday. Her cough is better and dry 85-90% back to her baseline. She has no hemoptysis. Room air saturations 96%. White blood cell count 18.1, creatinine 0.76. She is afebrile. Currently the patient is on Augmentin 875-125 b.i.d.. She is also on [place] acyclovir for a fever blister and fluconazole for thrush. Plan: Continue Augmentin, day 9 total antibiotics. Last dose of Augmentin on 07/04/2024. I suspect this is a viral infection and her repeat COVID, influenza RSV was negative. I will send an extended respiratory pathogen panel to [facility]. Both her fever blister and thrush are improving. 07/03/24: overall the patient feels better today. She feels good air and states her cough, phlegm and breathing are all improved. She has no phlegm production no hemoptysis. She has mild end expiratory wheezes. White blood cell count is 20.6, creatinine is 0.73, she is afebrile. Room air saturations are 96%. Patient said she tolerated Advair 230-21 at 2 puffs b.i.d.. She tolerated the Incruse 62.5. Respiratory pathogen panel is pending. Patient tells me she cannot afford any long-acting muscarinic antagonists. From a pulmonary perspective patient is ready to be discharged on these pulmonary medications: Advair 230-21 at 2 puffs b.i.d., patient was given a 2 week sample. she says this medicine is too expensive to afford. she will call the Pulmonary Clinic and discuss medication options as an outpatient. write prescription for Advair 250-50 at 1 puff twice a day. Patient states that on Advair 500-50 is too expensive to afford. Rescue albuterol 2 puffs q.4 hours p.r.n. shortness of breath or wheezing. Guaifenesin 1200 mg p.o. b.i.d. p.r.n. cough. Claritin 10 mg p.o. q.day follow-up in the Pulmonary Clinic in 3-4 weeks. I gave her our business card and informed our golf course laborer. Discussed with Franci Luna, will follow with you. (2) Pulmonary nodule: Code(s): R91.1 - Solitary pulmonary nodule Status: Acute Assessment and Plan: 06/29/2024: this has been on her chest CT since 2021, was biopsied, benign; caseating granulomas. (3) Asthma-COPD overlap syndrome: Code(s): J44.89 - Other specified chronic obstructive pulmonary disease Status: Acute Assessment and Plan: She has exacerbation of symptoms in the setting of multifocal pneumonia. She has less sputum now, dose not need O2 at rest. She has severe airflow obstruction. She has no elevated eosinophils on any prior testing. Quit smoking cigarettes years ago, smoked at most 1 ppd for 20 years. 06/29/24: plan: continue current treatment; continue Cornet valve, 3% saline, pulmonary hygiene to clear secretions Peak flow monitoring; Peak flow today is 250 L/min, still in the yellow zone. controller meds here in hospital : 1. budesonide 15 mcg/2 ml bid, 2. Serevent 50 mcg one puff bid; pharmacist Usman garcia, said that Serevent is not going to be an affordable medication in the real world. 3. ipratropium 0.5 mg qid nebulized 4. Albuterol 2.5 mg nebulized once a day She can still carry albuterol with her as an inhaler for p.r.n. rescue use at home. No vital signs overnight to allow her to sleep. She is eligible for a free Part D plan as she is over 65 years old, she does not have a Part D plan now, that she is aware of; she can find a formulary optional to work for her. I talked with her about this, and her family was at the bedside. Oral antibiotics, peak flow monitoring, jose at home, asthma action plan so she has an idea what to do when she deteriorates at home; Amoxicillin and azithromycin. She had an echo a year ago; if she continues to wheeze, will repeat. 07/02/2024: Patient still feels tight despite day 9 of a prednisone taper. She is on budesonide 0.5 mg q.12 hours, ipratropium nebulizers q.i.d., Serevent inhaler. She remains on room air. Patient was on trilogy with good control but this was too expensive. Patient tells me she was switched over to breztri and this did not control her as well. Plan: I will change the patient to Incruse Ellipta 62.5 at 1 puff q.day, Advair 230-21 at 2 puffs q.12 hours. Continue guaifenesin but will increase the dose to 1200 mg p.o. q.12 hours. Continue her prednisone taper with 30 mg for 2 more days then 20 mg for 2 days. If this is a respiratory viral infection she may remain symptomatic for weeks to months. Will follow her clinically. 07/03/24: overall the patient feels better today. She feels good air and states her cough, phlegm and breathing are all improved. She has no phlegm production no hemoptysis. She has mild end expiratory wheezes. White blood cell count is 20.6, creatinine is 0.73, she is afebrile. Room air saturations are 96%. Patient said she tolerated Advair 230-21 at 2 puffs b.i.d.. She tolerated the Incruse 62.5. Plan: Ideally I would discharge her on high-dose inhaled corticosteroids, long-acting beta agonist, long-acting muscarinic antagonist. She has tried trelegy samples before and they work well but she can not afford this. Breztri does not work as well as trelegy. she says she cannot afford Advair 500-50 but can not afford Advair 250-50 which she will be discharged on after she finishes samples of Advair HFA 230-21 at 2 puffs b.i.d.. I told her to call the pulmonary clinic and discussed with the staff there to see if there are alternatives that she can afford. Subjective Date/time seen: 07/03/24 10:02 Interval history: 06/28/24, new consult; Awa Stringer is a 68 year old woman who has asthma-COPD overlap, admitted June 23 with increasing shortness of breath and low oxygen saturation at home. She is not on home oxygen. On arrival saturation was 80%. She has a history of asthma, and has had asthma exacerbations typically in June. She was using nebulized albuterol but it was not helping over the last day or so. She improved on O2 at 2 L/minute. She is now on room air, feels better however she is still have wheezing, jose with exertion. Her procalcitonin was 0.1 on Jun 21. WBC was high 19.4, came down to 9.6. She is seen in our practice, last visit was 11/22/23; she says that she felt that she was getting sick, called the office to get antibiotics at the end of May; when she took the azithromycin, she felt better, however deteriorated. She had a similar episode last June. She was using Breztri and Trelegy, alternating samples from out office as she cannot qualify for patient assistance, and the cost is too high. She thinks that Trelegy worked better, but these are both expensive. 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 She has albuterol and ipratropium solution every 4 hours in her home nebulizer in the days before admission. She had thick yellow sputum, increased shortness of breath, increased right nasal blockage at night, a problem for years. She does not spend much time in public places, was not around any sick contacts before this happened. She had thrush recently, improved on oral meds, and she had recurrence of cold sore on left side of her mouth with this episode of pneumonia. Vaccination: Had pneumonia vaccination 2 years ago, completed 2 COVID vax, will not take more. Had influenza vaccination. Triggers: for asthma, triggers include mostly fragrance; weather changes, molds, cats, and increased wheezing after getting infections. She has a peak flow meter, has it with her today. does not use it at home. She checks her saturation at home, always in the mid 90% range. 06/29/24: She says that she is still wheezing. She has the Cornet valve, used it w 3% saline, and secretions seem to be moving. Mag level was 2.4 today, great, does not need IV mag supplementation. She had an echo a year ago, EF 50-55% and small PFO. I ordered Abreva for her cold sore, much better. She is eating well. Not sleeping well because of night time interruptions, noise. 07/02/24: overall the patient tells me she feels better than she was admitted. She feels tight and has more wheezing than yesterday. Her cough is better and dry 85-90% back to her baseline. She has no hemoptysis. Room air saturations 96%. White blood cell count 18.1, creatinine 0.76. She is afebrile. 07/03/24: overall the patient feels better today. She feels good air and states her cough, phlegm and breathing are all improved. She has no phlegm production no hemoptysis. She has mild end expiratory wheezes. White blood cell count is 20.6, creatinine is 0.73, she is afebrile. Room air saturations are 96%. Patient said she tolerated Advair 230-21 at 2 puffs b.i.d.. She tolerated the Incruse 62.5. DATA * alpha-1 = MM, normal genotype. * 06/24/[address] : There is a 10 x 13 mm mass in the right upper lobe likely due to bronchogenic carcinoma. Bilateral hyperinflation/emphysema. There is focal infiltrate and/atelectasis is noted involving the anteromedial right mid lung. There is tree-in-bud infiltrate in the posteromedial right upper lobe and anterolateral right upper lobe and the lingula. Scattered multifocal mild right lower lobe tree-in-bud infiltrate. Normal heart size. No pericardial or pleural effusion. No thoracic aortic aneurysm or dissection. No hilar or mediastinal mass lesion or lymphadenopathy. Small sliding hiatal hernia Normal morphology of the adrenal glands. Included upper abdominal structures are unremarkable. No suspicious osteolytic or osteoblastic lesions are noted. IMPRESSION: Suspected 10 x 13 mm right upper lobe bronchogenic carcinoma Emphysema Multifocal pulmonary infiltrates suggesting bilateral pneumonia 06/20/23: Left ventricular chamber dimension is normal. 2. Left ventricular systolic function is normal, estimated at 50-55%. 3. The left ventricular diastolic function is grade I diastolic dysfunction. 4. Right ventricular systolic function is normal. 5. Bubble study shows small right to left shunt, consistent with PFO. 6. There is trace mitral valve regurgitation. 7. There is trace tricuspid valve regurgitation. Review of Systems Review of Systems: All systems reviewed & are unremarkable except as noted in HPI and below Constitutional: Constitutional: Reports no additional constitutional complaints Eyes: Eyes: Reports no additional eye complaints ENT: Reports system reviewed and no additional complaints, except as documented Cardiovascular: Cardiovascular: Reports no additional cardiovascular complaints Respiratory: Respiratory: Reports no additional respiratory complaints Gastrointestinal: Gastrointestinal: Reports no additional gastrointestinal complaints Musculoskeletal: Musculoskeletal: Reports no additional musculoskeletal complaints Neurologic: Reports system reviewed and no additional complaints, except as documented Psychiatric: Psychiatric: Reports no additional psychiatric complaints Endocrine: Endocrine: Reports no additional endocrine complaints Hematologic/Lymphatic: Hematologic/Lymphatic: Reports no additional hematologic/lymphatic complaints Allergic/Immunologic: Allergic/Immunologic: Reports no additional allergic/immunologic complaints Exam Const: General: cooperative, healthy appearing and comfortable Orientation/consciousness: oriented to person, oriented to place and oriented to time HENMT: Head: normal to inspection Ears: hearing grossly normal bilaterally Eyes: General: appearance normal, both eyes and all related structures Neck: Neck: normal visual inspection Chest: Chest palpation & inspection: normal inspection of the chest Resp: Effort & Inspection: normal respiratory effort and able to speak in complete sentences Auscultation: no crackles, no rales, no rhonchi, wheezes and lung sounds not diminished Other: mild end expiratory wheezes Cardio: Jugular venous distension: no JVD GI: Inspection: normal to inspection Skin: General skin exam: normal color Neuro: General: oriented to person, oriented to place and oriented to time Extrem: General: normal to inspection Psych: Appearance: grossly normal Objective Data Vital Signs Vital Signs: Vital Signs - 24 hr 07/02/24 14:00 07/02/24 20:00 07/02/24 20:00 Temperature 36.4 C L Pulse Rate 78 80 Respiratory Rate 20 18 Blood Pressure 111/68 Pulse Oximetry 95 95 Oxygen Delivery Room Air 07/02/24 20:00 07/02/24 21:12 07/03/24 05:19 Temperature 36.6 C 37.0 C Pulse Rate 74 70 Respiratory Rate 16 14 Blood Pressure 135/67 121/71 Pulse Oximetry 95 96 Oxygen Delivery Room Air Intake/Output Intake/Output: Intake & Output 06/30/24 07/01/24 07/02/24 07/03/24 23:59 23:59 23:59 23:59 Intake Total 1615 2710 2095 500 Balance 1615 2710 2095 500 Meds/Results Medications: Active Medications Generic Name Dose Route Start Last Admin Trade Name Freq PRN Reason Stop Dose Admin Amoxicillin/Clavulanate Potassium 1 tablet 07/01/24 21:00 07/03/24 07:58 Amoxicillin/Clavulanate K 875-125 Mg Tab PO 07/04/24 20:59 1 tablet Q12HR NICOLE Administration Docosanol 1 applic 06/29/24 09:00 07/03/24 07:58 Docosanol 10% Cream 2 Gm TOPICAL 1 applic 5 TIMES DAILY NICOLE Administration Enoxaparin Sodium 40 mg 06/25/24 09:00 07/03/24 07:58 Enoxaparin 40 Mg/0.4 Ml Syringe SUB-Q Not Given DAILY NICOLE Guaifenesin 1,200 mg 07/02/24 21:00 07/03/24 07:57 Guaifenesin 12 Hr 600 Mg Tabcr PO 1,200 mg Q12HR NICOLE Administration Loratadine 10 mg 06/25/24 09:00 07/03/24 07:58 Loratadine 10 Mg Tablet PO 10 mg QAM NICOLE Administration Prednisone 30 mg 07/03/24 08:00 07/03/24 07:57 Prednisone 10 Mg Tablet PO 07/04/24 08:01 30 mg DAILY@0800 [facility] Administration Prednisone 20 mg 07/05/24 08:00 Prednisone 20 Mg Tablet PO 07/06/24 08:01 DAILY@0800 [facility] Fluticasone/Salmeterol 2 puff 07/02/24 10:50 07/03/24 07:49 Fluticasone/Salmeterol 230-21 Mcg Inhaler 1 Puff INHALATION 2 puff Q12HRT NICOLE Administration Sodium Chloride 1 spray 06/27/24 21:00 07/03/24 07:58 Saline 0.65% Carlos Soln 44 Ml Btl NASAL 1 spray Q12HR NICOLE Administration Umeclidinium [place] 1 puff 07/02/24 10:45 07/03/24 07:48 Umeclidinium [place] 62.5 Mcg Ellipta INHALATION 1 puff DAILYRT NICOLE Administration Valacyclovir HCl 1,000 mg 06/30/24 21:00 07/03/24 07:59 Valacyclovir Hcl 500 Mg Tablet PO 07/07/24 20:59 1,000 mg Q12HR NICOLE Administration Radiology Results: ITS Impressions Chest X-Ray 06/23/24 21:55 IMPRESSION: Bibasilar opacification more on the left side suggestive of pneumonia. Highly suggestive opacity in the right upper lobe with destructive changes in the adjacent rib. CT evaluation is advised. Chest CT 06/24/24 10:13 IMPRESSION: Suspected 10 x 13 mm right upper lobe bronchogenic carcinoma Emphysema Multifocal pulmonary infiltrates suggesting bilateral pneumonia Labs Labs: Laboratory Results - last 24 hr 07/03/24 07/03/24 06:13 06:16 WBC 20.6 H RBC 4.27 Hgb 13.3 Hct 41.1 MCV 96.3 MCH 31.1 MCHC 32.4 RDW 12.1 Plt Count 320 MPV 9.7 Immature Gran % (Auto) 5.9 H Neut % (Auto) 76.1 H Lymph % (Auto) 12.2 L [place] % (Auto) 5.1 Eos % (Auto) 0.2 Baso % (Auto) 0.5 Lymph # (Auto) 2.51 [place] # (Auto) 1.1 H Eos # (Auto) 0.1 Baso # (Auto) 0.1 Abs Immat Gran (auto) 1.22 H Absolute Neuts (auto) 15.7 H Absolute Nucleated RBC 0.000 Nucleated RBC % 0.0 Atypical Lymphocytes Present Platelet Estimate Adequate Schistocytes None seen Sodium 133 L Potassium 4.4 Chloride 100 Carbon Dioxide 32 H Anion Gap 1 L BUN 21 H Creatinine 0.73 Estim Creat Clear Calc 47 Estimated GFR > 60 Glucose 98 Calcium 8.1 L Total Bilirubin 0.4 AST 24 ALT 46 H Alkaline Phosphatase 92 NT-Pro-B Natriuret Pep 233 H Total Protein 6.0 L Albumin 3.0 L
--- NOTE | 2024-07-03 10:26 | P.DS_ITS ---
DS: Admitting Diagnosis Discharge Date 07/03/2024 Admitting Diagnosis Shortness of breath. DS: Discharge Diagnosis Discharge Diagnosis (1) Acute respiratory failure with hypoxia: Code(s): J96.01 - Acute respiratory failure with hypoxia Status: Acute (2) Multifocal pneumonia: Code(s): J18.9 - Pneumonia, unspecified organism Status: Acute (3) Asthma-COPD overlap syndrome: Code(s): J44.89 - Other specified chronic obstructive pulmonary disease Status: Acute (4) Thrush: Code(s): B37.0 - Candidal stomatitis Status: Acute (5) Cold sore: Code(s): B00.1 - Herpesviral vesicular dermatitis Status: Acute (6) Mass of upper lobe of right lung: Code(s): R91.8 - Other nonspecific abnormal finding of lung field Status: Acute DS: Summary Hospital Course Hospital Course: * ED workup: Per chart review patient had an SpO2 80% upon check in to the ED, placed on 2L NC and oxygen saturations remain stable. CBC with WBC 19.4, H/H 14.1/41.5, and PLT 254. CMP with Na 133, K 3.7, BUN/Cr 16/0.66 with GFR > 60. Glucose 134. LFTs WNL. Viral panel negative for flu/covid/rsv. Chest XR: Bibasilar opacification more on the left side suggestive of pneumonia and highly suggestive opacity in the right upper lobe with destructive changes in the adjacent rib. Chest CT: FINDINGS: There is a 10 x 13 mm mass in the right upper lobe likely due to bronchogenic carcinoma. Bilateral hyperinflation/emphysema. There is focal infiltrate and/atelectasis is noted involving the anteromedial right mid lung. There is tree-in-bud infiltrate in the posteromedial right upper lobe and anterolateral right upper lobe and the lingula. Scattered multifocal mild right lower lobe tree-in-bud infiltrate. Normal heart size. No pericardial or pleural effusion. No thoracic aortic aneurysm or dissection. No hilar or mediastinal mass lesion or lymphadenopathy. Small sliding hiatal hernia Normal morphology of the adrenal glands. Included upper abdominal structures are unremarkable. No suspicious osteolytic or osteoblastic lesions are noted. 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 * Pulmonology followed. Respiratory pathogen panel obtained. * Patient improved. Sa02 96% RA. Patients inhalers switched to Advair and Incruse. Patient to complete steroid taper, oral Augmentin, and Valacyclovir at home. * Patient to follow up in Pulmonology Clinic in 3-4 weeks. Status at Discharge Functional status at discharge: independent ambulation Overall status at discharge: patient is progressing back to baseline Time Spent with Patient Time attestation: Total time spent providing and/or coordinating discharge services: Time spent: Greater than 30 minutes Exam Const: General: comfortable and no acute distress Resp: Effort & Inspection: normal respiratory effort Auscultation: diminished lung sounds Cardio: Rate: regular rate Rhythm: regular rhythm GI: GI Palp: Yes Soft to palpation Auscultation: normal bowel sounds : Other: voiding without difficulty Neuro: General: gait normal Extrem: General: no pedal edema Psych: Mental Status: mental status grossly normal Affect: normal affect DS: Data Data Completed and Pending Labs on day of discharge: Labs from last 24 hours 07/03/24 07/03/24 07/03/24 06:16 06:13 06:03 WBC 20.6 H RBC 4.27 Hgb 13.3 Hct 41.1 MCV 96.3 MCH 31.1 MCHC 32.4 RDW 12.1 Plt Count 320 MPV 9.7 Immature Gran % (Auto) 5.9 H Neut % (Auto) 76.1 H Lymph % (Auto) 12.2 L Harvey % (Auto) 5.1 Eos % (Auto) 0.2 Baso % (Auto) 0.5 Lymph # (Auto) 2.51 Harvey # (Auto) 1.1 H Eos # (Auto) 0.1 Baso # (Auto) 0.1 Abs Immat Gran (auto) 1.22 H Absolute Neuts (auto) 15.7 H Absolute Nucleated RBC 0.000 Nucleated RBC % 0.0 Atypical Lymphocytes Present Platelet Estimate Adequate Schistocytes None seen Sodium 133 L Potassium 4.4 Chloride 100 Carbon Dioxide 32 H Anion Gap 1 L BUN 21 H Creatinine 0.73 Estim Creat Clear Calc 47 Estimated GFR > 60 Glucose 98 Calcium 8.1 L Total Bilirubin 0.4 AST 24 ALT 46 H Alkaline Phosphatase 92 NT-Pro-B Natriuret Pep 233 H Total Protein 6.0 L Albumin 3.0 L Nasal RSV Type A (PCR) Pending Nasal RSV Type B (PCR) Pending Chlamy pneumoniae PCR Pending Adenovirus DNA Pending Human Bocavirus (CAT) Pending Coronavirus Type OC43 Pending Coronavirus Type HKU1 Pending Coronavirus Type 229E Pending Coronavirus Type NL63 Pending Human Metapneumovir PCR Pending Influenza A (PCR) Pending Influenza A (H1) RNA Pending Influenza A (H3) PCR Pending M. pneumoniae DNA Pending Parainfluenza PCR Pending Parainfluenza 2 (PCR) Pending Parainfluenza 3 RNA (PCR) Pending Parainfluenza 4 (PCR) Pending Rhino/Enterovirus (CAT) Pending SARS-CoV-2 RNA (RT-PCR) Pending Influenza Type B (PCR) Pending [facility] [place] Pending Discharge Plan Discharge Attending physician on discharge: Rody Asif Consulting providers: Jacki Caraballo Discharging Clinician: Franci Luna Anticipated Discharge Date/Time: 07/03/24 13:00 Patient Disposition: Home, Self-Care Activity: may shower and as tolerated Diet: regular Discharge Instructions: * Increase protein intake. * Take inhalers as prescribed. * Report to pulmonology or primary if breathing worsens, develop fever, or sputum with color. * Take all doses of Valacyclovir. * Call pocket assembler office if difficulty affording inhalers and need to have inhaler switched. * You would benefit from an RSV vaccination. Thank you for entrusting [facility] with your healthcare! Patient Instructions: Antibiotic Form, Asthma (DC), High Protein Diet (DC), COPD (Chronic Obstructive Pulmonary Disease) (DC), How to Use a Nebulizer (DC), Pneumonia (DC) Patient Language: Malawian Stand Alone Forms: General Discharge Information Follow-up/Referrals: Jacki Caraballo MD [Physician] - 3 Weeks Pelon Damico DO [Primary Care Provider] - 1 Week Discharge Medications: New Incruse Ellipta 62.5 mcg/actuation Blister With Device 1 inh inhalation DAILYRT Qty: 30 0RF fluticasone propion-salmeterol [Advair HFA] 230-21 mcg/actuation Hfa Aerosol Inhaler 2 puff inhalation Q12HRT Qty: 12 0RF valacyclovir [Valtrex] 500 mg Tablet 1,000 mg PO Q12HR Qty: 9 0RF guaifenesin [Mucus Relief ER] 600 mg Tablet Extended Release 12hr 1,200 mg PO Q12HR Qty: 28 0RF prednisone 10 mg tablet 10 mg PO DIRECTED Qty: 7 0RF Rx Instructions: see taper instructions: Take 3 tablets on 07/04/24, Take 2 tablets on 07/05/24 and 07/06/24. amoxicillin-pot clavulanate 875-125 mg tablet 1 tablet PO Q12H Qty: 3 0RF Continued (DME) Aerochamber MV Spacer See Rx Instructions .ROUTE .MEDSUPPLY Qty: 1 0RF Rx Instructions: As directed zinc 50 mg tablet 50 mg PO DAILY cholecalciferol (vitamin D3) 1,000 unit capsule 1,000 unit PO DAILY cetirizine [Zyrtec] 10 mg Tablet 10 mg PO QAM ascorbic acid (vitamin C) [Vitamin C] 500 mg Tablet 500 mg PO DAILY albuterol sulfate 2.5 mg /3 mL (0.083 %) solution for nebulization 2.5 mg inhalation Q6H PRN (Reason: shortness of breath or wheezing) Qty: 360 2RF ipratropium bromide 0.02 % solution 3 ml inhalation BID PRN (Reason: shortness of breath or wheezing) Qty: 300 1RF albuterol sulfate 90 mcg/actuation HFA aerosol inhaler 1 - 2 puff inhalation Q4-6H PRN (Reason: shortness of breath or wheezing) Qty: 8.5 5RF Discontinued Trelegy Ellipta 200-62.5-25 mcg blister with device 1 inh inhalation Q24H Qty: 3 3RF fluticasone fur. 200 mcg-umeclid 62.5 mcg-vilant 25 mcg inhalat.powder 200-62.5-25 mcg blister with device 0RF Date of admission: 06/24/24 05:11 Primary Care Provider: Pelon Damico Admitting Provider: Arnel Ruiz V. Attending physician on admission: Lisseth Islas Condition: Stable Hospitalist MIPS Heart Failure (Exclusion) Patient has history of Heart Transplant or Left Ventricular Assistive Device?: No IF YES, STOP HERE Heart Failure (Qualifier) Patient has current or prior documentation of LVEF less than or equal to 40%, or mod/servere depressed LVSF?: No IF NO, STOP HERE
[2024-07-05 13:48] LABS: Adenovirus DNA Not Detected (Not Detected); Chlamydophila pneumoniae Not Detected (Not Detected); Coronavirus 229E Not Detected (Not Detected); Coronavirus HKU1 Not Detected (Not Detected); Coronavirus NL63 Not Detected (Not Detected); Coronavirus OC43 Not Detected (Not Detected); Human Metapneumovirus Not Detected (Not Detected); Human Parainfluenza Virus 1 Not Detected (Not Detected); Human Parainfluenza Virus 2 Not Detected (Not Detected); Human Parainfluenza Virus 3 Not Detected (Not Detected); Human Parainfluenza Virus 4 Not Detected (Not Detected); Human RSV B Not Detected (Not Detected); Influenza A Not Detected (Not Detected); Influenza B Not Detected (Not Detected); Mycoplasma pneumoniae Not Detected (Not Detected); Rhinovirus/Enterovirus Not Detected (Not Detected)
== END 2024-07-03 13:45 | disposition home or self-care (01) | DRG 193 ==
LOC: ANHED 06-24 03:36 → ANH3MEDSUR 06-24 07:20
PROVIDERS: Internal Medicine Pulmonary Disease; Student in an Organized Health Care Education/Training Program; Admitting Provider Internal Medicine; Emergency Provider Emergency Medicine; PCP Internal Medicine; Visit Provider Nurse Practitioner Family
DX: J18.9 Pneumonia, unspecified organism (principal); J96.01 Acute respiratory failure with hypoxia; J44.0 Chronic obstructive pulmonary disease with (acute) lower respiratory infection; B37.0 Candidal stomatitis; R91.8 Other nonspecific abnormal finding of lung field; R91.1 Solitary pulmonary nodule; B00.1 Herpesviral vesicular dermatitis; Z87.891 Personal history of nicotine dependence; Z90.49 Acquired absence of other specified parts of digestive tract
CPT/HCPCS: 36415; 71046; 71260; 80053; 83735; 83880; 85025; 87040; 87633; 87637; 93005; 94640; 94667; 94668; 96361; 96365; 96367; 99285; A9270; J0456; J0696; J1650; J2919; J7030; J7512; Q9967

== ENCOUNTER 2024-07-18 09:55 | Outpatient (CLI) | payer MEDICARE, OTHER, SELFPAY ==
--- NOTE | ~2024-07-18 | MM_ITS ---
EXAMINATION: MM screening chelle BI w srini HISTORY: Screening TECHNIQUE: Craniocaudal and mediolateral oblique 3-D tomosynthesis images were obtained and synthetic 2-D images were generated. CAD analysis was submitted and interpreted. COMPARISON: Comparison to multiple prior studies sequentially, with oldest reviewed study dated 08/28. BREAST PARENCHYMAL COMPOSITION: Dense: The breasts are heterogeneously dense, which may obscure small masses FINDINGS: There is no evidence of suspicious mass, calcification, or architectural distortion to sugg est malignancy in either breast. There has been no suspicious interval change. IMPRESSION: 1. No mammographic evidence of malignancy. 2. Recommend routine screening mammography in one year. BI-RADS Category 1: Negative Reviewed, dictated and finalized at location B. R INSTRUCTOR
== END 2024-07-18 09:56 | disposition home or self-care (01) ==
LOC: ANHIMG 09:58
PROVIDERS: PCP Internal Medicine; Visit Provider Clinical Nurse Specialist
DX: Z12.31 Encounter for screening mammogram for malignant neoplasm of breast (principal)
CPT/HCPCS: 77063; 77067

== ENCOUNTER 2024-12-19 16:27 | Outpatient (CLI) | payer MEDICARE, OTHER, SELFPAY ==
--- NOTE | ~2024-12-19 | CT_ITS ---
CT Scan of the Chest without Contrast: Clinical Indication: Pulmonary nodule Technique: Contiguous sections were acquired throughout the chest without intravenous contrast. Dose reduction technique was used on this scan by utilizing automated exposure control and iterative recon struction technique. The dose-length product (DLP) was 140.84 mGy-cm. COMPARISON: 06/23/2024 Findings: There is no evidence of any significant mediastinal, hilar or axillary lymphadenopathy. The mediastin al soft tissues appear normal. There is no evidence of pleural or pericardial effusion. There is mild biapical scarring. Stable 4 mm apical pulmonary nodule (axial image 20). Stable 14 mm r ight upper lobe pulmonary nodule was central calcification (axial image 46). Chronic scarring and pos sible minimal tree-in-bud opacity in the anteromedial right upper lobe is unchanged. Tree-in-bud opac ities in the lingula and left lower lobe are improved from prior exam. Minimal residual tree-in-bud o pacities in the left upper lobe, improved from prior exam. Images through the upper abdomen reveal no abnormalities. Impression: Interval improvement in tree-in-bud opacities in the lungs bilaterally as compared to prior exam. Stable 14 mm right upper lobe pulmonary nodule with central calcification, possibly large granuloma. Stable biapical scarring and additional small right apical pulmonary nodule. Reviewed, dictated and finalized at location . Impression: Interval improvement in tree-in-bud opacities in the lungs bilaterally as iva red to prior exam. Stable 14 mm right upper lobe pulmonary nodule with central calcification, poss ibly large granuloma. Stable biapical scarring and additional small right apical pulmonary nodule.
== END 2024-12-19 16:28 | disposition home or self-care (01) ==
PROVIDERS: PCP Nurse Practitioner; Visit Provider Physician Assistant
DX: R91.8 Other nonspecific abnormal finding of lung field (principal); J84.10 Pulmonary fibrosis, unspecified; J18.9 Pneumonia, unspecified organism
CPT/HCPCS: 71250